=== PATIENT | male | born 1930 | race Caucasian/White ===

== ENCOUNTER 2022-01-03 12:22 | Inpatient (IN) | payer MEDICARE, OTHER ==
[2022-01-03] VITALS (14 sets, daily range): BP systolic 106–163; BP diastolic 48–94
[~2022-01-03] VITALS: Ht 165.1 cm; Wt 72.6 kg
--- NOTE | 2022-01-03 12:35 | NUR ---
COVID SWAB DONE AND SENT TO LAB
--- NOTE | 2022-01-03 12:38 | NUR ---
FELICITY Green FROM [facility] FOR ALOC AND SHORTNESS OF BREATH. ATTACHED TO MONITOR, PT SATTING AT 98% ON NONREBREATHER 15L. PT BASELINE IS NONVERBAL BUT OPENS HIS EYS. PT IS WARM TO TOUCH. AWAITING MD ORDERS.
[2022-01-03] MEDS ORDERED: PROPOFOL 100 ML ONE (12:39)
--- NOTE | 2022-01-03 12:44 | NUR ---
IV ETABLIHSED R HAND 22G, ADDITIONAL IV ESTABLISHED L FA 20G. LABS DRAWN AND SENT
[2022-01-03 12:47] LABS: BASOPHILS % (AUTO) 0.1 % (0.0-2.0); HEMATOCRIT 31 % (39-51); HEMOGLOBIN 10.2 g/dL (13.5-17.5); LYMPHOCYTES # (AUTO) 0.2 K/uL (0.8-4.8); LYMPHOCYTES % (AUTO) 1.4 % (20.0-44.0); MEAN CORPUSCULAR HGB CONC 33 g/dl (31.0-36.0); MEAN CORPUSCULAR VOLUME 89 fL (80-96); MONOCYTES # (AUTO) 0.4 K/uL (0.1-1.30); MONOCYTES % (AUTO) 2.5 % (2.0-12.0); NEUTROPHILS # (AUTO) 16.2 K/uL (1.8-8.9); PLATELET COUNT (AUTO) 227 K/uL (150-450); RED BLOOD CELL COUNT(AUTO) 3.44 MIL/uL (4.5-6.0); WHITE BLOOD COUNT (AUTO) 16.9 K/uL (4.3-11.0)
[2022-01-03] MEDS ORDERED: ETOMIDATE 2 MG/ML VIAL IV ONE ×2 (13:00→17:52)
[2022-01-03] MEDS ORDERED: PROPOFOL 100 ML IV ONE (13:00)
[2022-01-03] MEDS ORDERED: ROCURONIUM BROMIDE 100 MG/10 ML VIAL IV ONE (13:00)
[2022-01-03] MEDS ORDERED: IV NS 0.9% 1,000 ML BAG IV ONE (13:00)
[2022-01-03] MEDS ORDERED: VANCOMYCIN 1 GM in IV D5W 250 ML IV ONE (13:00)
[2022-01-03] MEDS ORDERED: CEFEPIME 1 GM in IV D5W 50 ML IV ONE (13:00)
[2022-01-03] MEDS ORDERED: AMIN30LI2 GT (13:01)
[2022-01-03] MEDS ORDERED: FAMO20TA8 GT (13:01)
[2022-01-03] MEDS ORDERED: DIGO125T GT (13:01)
[2022-01-03] MEDS ORDERED: ONDA4TAB11 GT (13:01)
[2022-01-03] MEDS ORDERED: IPRA3AMP23 IH (13:01)
[2022-01-03] MEDS ORDERED: ZINC220C6 GT (13:01)
[2022-01-03] MEDS ORDERED: INSU100V39 SQ (13:01)
[2022-01-03] MEDS ORDERED: ASCO-352 GT (13:01)
[2022-01-03] MEDS ORDERED: FURO-145 GT (13:01)
[2022-01-03] MEDS ORDERED: INSU100V7 SQ (13:01)
[2022-01-03] MEDS ORDERED: BISA10SU11 RC (13:01)
[2022-01-03] MEDS ORDERED: ACET-868 GT (13:01)
[2022-01-03] MEDS ORDERED: ACET1OOV6 HHN (13:01)
[2022-01-03] MEDS ORDERED: SODI1TAB66 GT (13:01)
[2022-01-03] MEDS ORDERED: MULT-447 GT (13:01)
[2022-01-03] MEDS ORDERED: APIX2.5T GT (13:01)
[2022-01-03] MEDS ORDERED: GUAI600T53 GT (13:01)
--- NOTE | 2022-01-03 13:01 | NUR ---
X RAY AT BEDSIDE
--- NOTE | 2022-01-03 13:13 | NUR ---
[address], 50CC OF URINE OUTPUT. URINE COLLECTED AND SENT.
[2022-01-03 13:44] LABS: CALCIUM, SERUM 8.7 mg/dL (8.5-10.1); CARBON DIOXIDE 27 mmol/L (21-32); CHLORIDE 85 mmol/L (98-107); CREATININE 1.5 mg/dL (0.6-1.3); GLUCOSE 273 mg/dL (74-106); POTASSIUM 4.9 mmol/L (3.5-5.1); SODIUM SERUM 122 mmol/L (136-145); UREA NITROGEN, BLOOD 42 mg/dL (7-18)
[2022-01-03 13:51] LABS: ALANINE AMINOTRANSFERASE 27 U/L (12-78); ALBUMIN 3.3 g/dL (3.4-5.0); ALKALINE PHOSPHATASE 108 U/L (46-116); ASPARTATE AMINOTRANSFERASE 36 U/L (15-37); BILIRUBIN,DIRECT 0.2 mg/dL (0.0-0.2); BILIRUBIN,TOTAL 0.6 mg/dL (0.2-1.0); TOTAL PROTEIN, SERUM 8.6 g/dL (6.4-8.2)
[2022-01-03 13:58] LABS: BILIRUBIN,URINE NEGATIVE (NEGATIVE); COLOR,URINE YELLOW (YELLOW); LEUKOCYTE ESTERASE ,URINE MODERATE (NEGATIVE); NITRITE, URINE NEGATIVE (NEGATIVE); PROTEIN,URINE 100 mg/dl (NEGATIVE); UGLUCOSE 500 MG/DL mg/dL (NEGATIVE); UROBILINOGEN,URINE 0.2 EU/dL (0.2)
[2022-01-03 14:00] LABS: BACTERIA,URINE Moderate /HPF (None Seen); SQUAMOUS EPITHELIAL CELL,UR Few /HPF (None Seen); WBC,URINE TOO NUMEROUS TO COUN /HPF (0-3)
[2022-01-03 14:01] LABS: URINE AMORPHOUS URATE Few /HPF (None Seen)
[2022-01-03 14:11] LABS: ABG PH 7.423 (7.350-7.450); ABG PO2 86.6 mmHg (75.0-100.0); COHb 0.3 % (0.5-1.5); MetHb 0.2 % (0.0-1.5); SITE, ABG Left Radial; VENT MODE, BG NRB 6LPM
[2022-01-03] MEDS ORDERED: NUT.237L30 GT (14:13)
[2022-01-03] MEDS ORDERED: Z GUARD REMEDY 4 OZ OINT TP PRN (14:30)
[2022-01-03] MEDS ORDERED: IPRATROPIUM NEB FS 0.5 MG/2.5 ML AMPUL.NEB NEB PRN (14:30)
[2022-01-03] MEDS ORDERED: HYDROCODONE/APAP 5/325MG TABLET GT PRN (14:30)
[2022-01-03] MEDS ORDERED: ACETAMINOPHEN 650 MG/SUPP.RECT RC PRN (14:30)
[2022-01-03] MEDS ORDERED: MAGNESIUM HYDROXIDE 30 ML UDC PO PRN (14:30)
[2022-01-03] MEDS ORDERED: DEXTROSE 50%-WATER 50 ML DISP.SYRIN IV PRN (14:30)
[2022-01-03] MEDS ORDERED: ONDANSETRON HCL/PF 4 MG/2 ML VIAL IVP PRN (14:30)
[2022-01-03] MEDS ORDERED: BISACODYL SUPP (10 MG) 10 MG/SUPP.RECT SUPP.RECT RC PRN (14:30)
[2022-01-03] MEDS ORDERED: HOME MED MISCELLANEOUS XX SCH (14:30)
[2022-01-03] MEDS ORDERED: GUAIFENESIN 300 MG/15 ML UDC GT PRN (14:30)
[2022-01-03] MEDS ORDERED: ACETAMINOPHEN 650 MG/20.3 ML UDC ONE (14:46)
[2022-01-03] MEDS ORDERED: ACETAMINOPHEN 650 MG/20.3 ML UDC GT ONE (15:00)
--- NOTE | 2022-01-03 15:03 | NUR ---
REPORT GIVEN TO SHERINE FOR MARTA
--- NOTE | 2022-01-03 15:55 | NUR ---
PATIENT ARRIVED FROM THE E.R DEPT VIA [facility] , REPORT GIVEN BY ALYSA; ADMITTED PT. PER ORDER/PROTOCOL. ON NON-REBREATHER MASK O2SAT 95%; GT IN-PLACE; TEMP=98.5F. KEPT PT. COMFORTABLE. NO SSx OF DISTRESS NOTED AT THIS TIME.
[2022-01-03] MEDS ORDERED: GLUCERNA 1.2 1,000 ML BOTTLE NG PRN (16:00)
[2022-01-03] MEDS ORDERED: GLUCERNA 1.2 1,000 ML BOTTLE GT PRN (16:00)
--- NOTE | 2022-01-03 16:02 | NUR ---
PT TRANSFERRED TO ICU WITH ALS PROTOCOLS IN PLACE, RECIVED BY LUCA BASURTO AND JOI FRAZIER.
[2022-01-03] MEDS: APIXABAN 2.5 MG TABLET GT SCH (17:39)
[2022-01-03] MEDS: BLOOD SUGAR DIAGNOSTIC 1 EACH STRIP IN SCH ×2 (17:50→23:49)
[2022-01-03] MEDS ORDERED: ROCURONIUM BROMIDE 50 MG/5 ML IV ONE (17:52)
[2022-01-03] MEDS: INSULIN REGULAR, HUMAN 100 UNIT/ML 3 ML VIAL SQ PRN ×2 (17:53→23:50)
--- NOTE | 2022-01-03 19:02 | NUR ---
NO SSx OF DISTRESS NOTED AT THIS TIME; REPOSITIONED Q2H/PRN; ENDORSED TO JESSIE FOR CONTINUITY OF CARE.
[2022-01-03] MEDS: CEFEPIME 1 GM in IV D5W 50 ML IV SCH (21:00)
[2022-01-03] MEDS: DIGOXIN 0.125 MG TABLET GT SCH (22:58)
--- NOTE | 2022-01-03 23:20 | NUR ---
ICU/TONGUE LINING STITCHER PT WAS DEEP SUCTION, PT SOUNDS EXTREMLY CONGESTED WITH A NON PRODUCTIVE COUGH. PT TOLERATED THIS WELL, PT REMAINS ON 15 LITERS NON REBREATHER MASK. SATURATION IS 99%
[2022-01-03] MEDS: ALBUTEROL FS 2.5 MG/3 ML VIAL.NEB NEB PRN (23:54)
[2022-01-04] VITALS (30 sets, daily range): BP systolic 78–135; BP diastolic 45–74
--- NOTE | 2022-01-04 00:49 | NUR ---
ICU/PROCESS ENGINEERING INTERN RT WAS ABLE TO GIVE THIS PT HIS PRN BREATHING TREATMENT. WILL MONITOR THIS PT FOR ANY FURTHER CHANGES TO HIS SATURATION.
[2022-01-04 05:22] LABS: BASOPHILS % (AUTO) 0.1 % (0.0-2.0); HEMATOCRIT 27 % (39-51); HEMOGLOBIN 8.7 g/dL (13.5-17.5); LYMPHOCYTES # (AUTO) 0.9 K/uL (0.8-4.8); LYMPHOCYTES % (AUTO) 6.6 % (20.0-44.0); MEAN CORPUSCULAR HGB CONC 33 g/dl (31.0-36.0); MEAN CORPUSCULAR VOLUME 91 fL (80-96); MONOCYTES # (AUTO) 0.8 K/uL (0.1-1.30); MONOCYTES % (AUTO) 5.9 % (2.0-12.0); NEUTROPHILS # (AUTO) 11.6 K/uL (1.8-8.9); NEUTROPHILS % (AUTO) 87.4 % (43.0-81.0); PLATELET COUNT (AUTO) 142 K/uL (150-450); RED BLOOD CELL COUNT(AUTO) 2.91 MIL/uL (4.5-6.0); WHITE BLOOD COUNT (AUTO) 13.2 K/uL (4.3-11.0)
[2022-01-04 05:34] LABS: CALCIUM, SERUM 8.4 mg/dL (8.5-10.1); CARBON DIOXIDE 29 mmol/L (21-32); CHLORIDE 94 mmol/L (98-107); CREATININE 1.5 mg/dL (0.6-1.3); GLUCOSE 164 mg/dL (74-106); MAGNESIUM 2.2 mg/dL (1.8-2.4); PHOSPHORUS 2.6 mg/dL (2.5-4.9); POTASSIUM 3.8 mmol/L (3.5-5.1); SODIUM SERUM 129 mmol/L (136-145); UREA NITROGEN, BLOOD 39 mg/dL (7-18)
[2022-01-04] MEDS: BLOOD SUGAR DIAGNOSTIC 1 EACH STRIP IN SCH ×3 (05:44→17:02)
[2022-01-04 05:46] LABS: THYROID STIMULATING HORMONE 0.992 uIU/mL (0.358-3.74)
[2022-01-04] MEDS: INSULIN REGULAR, HUMAN 100 UNIT/ML 3 ML VIAL SQ PRN ×3 (05:47→17:09)
--- NOTE | 2022-01-04 06:33 | NUR ---
ICU/OVAL OR CIRCULAR GLASS CUTTER PT HAS POSITIVE BLOOD CULTURE GRAM POSITIVE COCI CLUSTER. WILL PASS THIS ON TO DAY SHIFT NURSE. PT IS CURRENTLY ON IVPB.
--- NOTE | 2022-01-04 07:30 | NUR ---
RN OPENING NOTE PT OBSERVED IN BED WITH HOB >30. PT IS ON NON REBREATHER MASK 15L TOLERATING WELL O2 SAT 97%. PT IS NON VERBAL AND DOES NOT OPEN EYES AND RESPONDS TO TOUCH AND LIGHT PAIN. PT ON MONITOR WITH AFIB. FC IS IN PLACE DRAINING URINE TO GRAVITY GTUBE IS IN PLACE WITH POSITIVE PLACEMENT INFUSING WITH GLUCERNA @60ML/HR. IV ACCESS L THUMB 22G AND L FA 20G. BED IS LOCKED IN LOWEST POSITION X2 BEDRAILS UP AND ALL HOSPITAL SAFETY MEASURES ARE IN PLACE. WILL CONTINUE TO MONITOR THIS SHIFT.
--- NOTE | 2022-01-04 07:33 | NUR ---
WOUND CARE CONSULT: PT NOTED TO HAVE RAPID RESPIRATIONS AT THIS TIME. NOT TURNED FOR FULL SKIN ASSESSMENT AT THIS TIME. LEFT HEEL WOUND NOTED AND RT HEEL SCARRING, PRESENT ON ADMISSION. DPM CONSULT TO BE CALLED TO DR STEPHENS THIS AM. RECOMMENDATIONS MADE FOR SKIN PROTECTION. DISCUSSED WITH NURSING STAFF. MD IN AGREEMENT WITH PLAN OF CARE.
[2022-01-04] MEDS ORDERED: FUROSEMIDE 40 MG/4 ML VIAL IV SCH (09:00)
[2022-01-04] MEDS ORDERED: MULTIVITAMIN LIQ 5 ML UDC GT SCH (09:00)
[2022-01-04] MEDS ORDERED: POTASSIUM CHLORIDE 20 MEQ POWDER PACKET NG SCH (09:00)
[2022-01-04] MEDS ORDERED: SODIUM CHLORIDE 1000 MG TABLET GT SCH (09:00)
[2022-01-04] MEDS: ACETYLCYSTEINE 10% SOLN 400 MG/4 ML VIAL NEB SCH ×3 (09:00→23:39)
[2022-01-04] MEDS: CEFEPIME 1 GM in IV D5W 50 ML IV SCH ×2 (09:02→21:12)
[2022-01-04] MEDS: FAMOTIDINE (20 MG) 20 MG TABLET GT SCH (09:02)
[2022-01-04] MEDS: ASCORBIC ACID 500 MG TABLET GT SCH (09:03)
[2022-01-04] MEDS: ZINC SULFATE 220 MG CAPSULE GT SCH (09:03)
[2022-01-04] MEDS: FUROSEMIDE 40 MG/4 ML VIAL IV SCH ×3 (09:08→17:00)
[2022-01-04] MEDS: APIXABAN 2.5 MG TABLET GT SCH ×2 (09:12→17:02)
[2022-01-04] MEDS: MULTIVITAMINS,THERAGRAN 1 UDTAB TABLET GT SCH (09:16)
[2022-01-04 09:44] LABS: ABG BASE EXCESS 1.2 mmol/L; ABG OXYGEN SATURATION 98.1 % (92.0-98.5); ABG PCO2 38.7 mmHg (35.0-45.0); ABG PH 7.436 (7.350-7.450); ABG PO2 111.3 mmHg (75.0-100.0); COHb 0.3 % (0.5-1.5); MetHb 0.1 % (0.0-1.5); O2Hb 97.7 % (94.0-97.0); SITE, ABG Right Radial; VENT MODE, BG NON REBREATHER
--- NOTE | 2022-01-04 09:50 | NUR ---
placed into 6 lp oxygen flow via nasal cannula due to 100% spo2 and 111 pao2 as order Addendum: 01/04/22 at 0951 by VICKIE RAMIREZ RT Amended: Links added.
[2022-01-04] MEDS: PROSOURCE / PROSTAT (PYXIS) 30 ML UDC GT SCH (10:45)
[2022-01-04] MEDS: IPRATROPIUM NEB FS 0.5 MG/2.5 ML AMPUL.NEB NEB SCH ×4 (11:25→23:39)
[2022-01-04] MEDS: ALBUTEROL HALF STRENGTH 1.25 MG/3 ML VIAL.NEB NEB SCH ×4 (11:25→23:39)
[2022-01-04] MEDS: VANCOMYCIN 0.75 GM in IV D5W 250 ML IV SCH (13:37)
[2022-01-04] MEDS: GLUCERNA 1.2 1,000 ML BOTTLE GT PRN (13:38)
[2022-01-04] MEDS: ACETAMINOPHEN 325 MG TABLET MC PRN (17:00)
[2022-01-04] MEDS ORDERED: IV NS 0.9% 250 ML IV PRN ×2 (17:00→17:30)
--- NOTE | 2022-01-04 17:29 | NUR ---
RN NOTE: LASIX PT BP 92/47 (65). PER MD, HOLD LAST DOSE OF IV 40MG LASIX. WILL WASTE DOSE.
--- NOTE | 2022-01-04 18:56 | NUR ---
RN CLOSING NOTE PT IS IN BED WITH HOB >30. PT IS ON NC @2L TOLERATING WELL O2 SAT 99%. PT IS NON VERBAL AND DOES NOT OPEN EYES AND RESPONDS TO TOUCH AND LIGHT PAIN. PT ON MONITOR WITH AFIB. FC IS IN PLACE DRAINING URINE TO GRAVITY -1100ML GTUBE IS IN PLACE WITH POSITIVE PLACEMENT INFUSING WITH GLUCERNA @60ML/HR. IV ACCESS L THUMB 22G AND L FA 20G. BED IS LOCKED IN LOWEST POSITION X2 BEDRAILS UP AND ALL HOSPITAL SAFETY MEASURES ARE IN PLACE. WILL ENDORSE TO COTTON FEEDER NURSE FOR MARTA.
[2022-01-04] MEDS: DIGOXIN 0.125 MG TABLET GT SCH (21:12)
[2022-01-05] VITALS (20 sets, daily range): BP systolic 97–143; BP diastolic 46–88
[2022-01-05] MEDS: BLOOD SUGAR DIAGNOSTIC 1 EACH STRIP IN SCH ×4 (00:01→18:36)
[2022-01-05] MEDS: INSULIN REGULAR, HUMAN 100 UNIT/ML 3 ML VIAL SQ PRN ×4 (00:09→17:29)
[2022-01-05 03:27] LABS: BASOPHILS % (AUTO) 0.3 % (0.0-2.0); EOSINOPHILS % (AUTO) 0.1 % (0.0-6.0); HEMATOCRIT 24 % (39-51); HEMOGLOBIN 7.9 g/dL (13.5-17.5); LYMPHOCYTES # (AUTO) 0.7 K/uL (0.8-4.8); LYMPHOCYTES % (AUTO) 8.1 % (20.0-44.0); MEAN CORPUSCULAR HGB CONC 34 g/dl (31.0-36.0); MEAN CORPUSCULAR VOLUME 91 fL (80-96); MONOCYTES # (AUTO) 0.6 K/uL (0.1-1.30); MONOCYTES % (AUTO) 6.8 % (2.0-12.0); NEUTROPHILS # (AUTO) 7.6 K/uL (1.8-8.9); NEUTROPHILS % (AUTO) 84.7 % (43.0-81.0); PLATELET COUNT (AUTO) 136 K/uL (150-450); RED BLOOD CELL COUNT(AUTO) 2.61 MIL/uL (4.5-6.0)
[2022-01-05 03:37] LABS: CALCIUM, SERUM 8.4 mg/dL (8.5-10.1); CARBON DIOXIDE 29 mmol/L (21-32); CHLORIDE 96 mmol/L (98-107); CREATININE 1.5 mg/dL (0.6-1.3); GLUCOSE 189 mg/dL (74-106); POTASSIUM 4.1 mmol/L (3.5-5.1); SODIUM SERUM 129 mmol/L (136-145); UREA NITROGEN, BLOOD 50 mg/dL (7-18)
[2022-01-05] MEDS: IPRATROPIUM NEB FS 0.5 MG/2.5 ML AMPUL.NEB NEB SCH ×6 (04:13→23:49)
[2022-01-05] MEDS: ALBUTEROL HALF STRENGTH 1.25 MG/3 ML VIAL.NEB NEB SCH ×6 (04:13→23:49)
[2022-01-05] MEDS: ACETYLCYSTEINE 10% SOLN 400 MG/4 ML VIAL NEB SCH ×3 (07:15→23:49)
[2022-01-05] MEDS: CEFEPIME 1 GM in IV D5W 50 ML IV SCH ×2 (08:09→21:19)
[2022-01-05] MEDS: ZINC SULFATE 220 MG CAPSULE GT SCH (08:10)
[2022-01-05] MEDS: ASCORBIC ACID 500 MG TABLET GT SCH (08:10)
[2022-01-05] MEDS: MULTIVITAMINS,THERAGRAN 1 UDTAB TABLET GT SCH (08:10)
[2022-01-05] MEDS: FAMOTIDINE (20 MG) 20 MG TABLET GT SCH (08:10)
[2022-01-05] MEDS: APIXABAN 2.5 MG TABLET GT SCH ×3 (08:12→16:51)
[2022-01-05] MEDS: PROSOURCE / PROSTAT (PYXIS) 30 ML UDC GT SCH (08:13)
--- NOTE | 2022-01-05 09:18 | NUR ---
Yamileth to Administer Eliquis per Dr Coyle
[2022-01-05 10:15] LABS: FERRITIN 428 ng/mL (8-388)
[2022-01-05 11:25] LABS: IRON, SERUM 22 ug/dl (50-175); TOTAL IRON BINDING CAPACITY 222 ug/dl (250-450)
[2022-01-05] MEDS: VANCOMYCIN 0.75 GM in IV D5W 250 ML IV SCH (13:01)
[2022-01-05] MEDS: SOD FERRIC GLUC 125 MG in IV NS 0.9% 100 ML IV SCH (13:56)
[2022-01-05] MEDS: POVIDONE-IODINE OINT 28.4 GM TUBE TP SCH (16:52)
[2022-01-05] MEDS: CLOTRIMAZOLE 1% 15 GM TUBE TP SCH (16:53)
--- NOTE | 2022-01-05 18:30 | NUR ---
RN NOTE RESUMES MARTA PATIENT PLACED IN ROM 115-1
--- NOTE | 2022-01-05 18:48 | NUR ---
RN CLOSING NOTE PT IS IN BED WITH HOB >30. PT IS ON NC @2L TOLERATING WELL O2 SAT 100%. PT IS NON VERBAL AND DOES NOT OPEN EYES AND RESPONDS TO TOUCH AND LIGHT PAIN. PT ON MONITOR WITH AFIB. FC IS IN PLACE DRAINING URINE TO GRAVITYGTUBE IS IN PLACE WITH POSITIVE PLACEMENT INFUSING WITH GLUCERNA @60ML/HR. IV ACCESS L THUMB 22G AND L FA 20G. BED IS LOCKED IN LOWEST POSITION X2 BEDRAILS UP AND ALL HOSPITAL SAFETY MEASURES ARE IN PLACE. WILL ENDORSE TO JET DYEING MACHINE TENDER NURSE FOR MARTA.
--- NOTE | 2022-01-05 19:20 | NUR ---
RN OPEN NOTE: NON VERBAL. RESPONSIVE TO TACTILE STIMULI. HOB ELEVATED 30 DEGREES. ON 02 2 LPM NC. IV ON RIGHT THUMB G22 PATENT FLUSHED WITH NS. NO S/S OF COMPLICATIONS. IN ON LEFT FOREARM G 20 PATENT FLUSHED WITH NS WITH NO S/S OF COMPLICATIONS. GT IN PLACE PATENT WITH GLUCERNA AT 60 ML/HR. NO RESIDUAL. MOSS CATHETER WITH YELLOW URINE. TELE LEADS IN PLACE WITH A READING OF A.FIB CONTROLLED 82. REPOSITIONED WITH PILLOWS,BED IN LOW POSITION, LOCKED, BED ALARM ON. BILATERAL HALF SIDE RAILS UP X2. CALL LIGHT IN REACH.
[2022-01-05] MEDS: DIGOXIN 0.125 MG TABLET GT SCH (21:07)
[2022-01-06] VITALS: BP 143/80
[2022-01-06] MEDS: BLOOD SUGAR DIAGNOSTIC 1 EACH STRIP IN SCH ×5 (00:33→23:50)
[2022-01-06] MEDS: INSULIN REGULAR, HUMAN 100 UNIT/ML 3 ML VIAL SQ PRN ×5 (00:38→23:51)
[2022-01-06] MEDS: IV D5/ 0.9% NACL 1,000 ML IV PRN ×2 (01:18→23:01)
[2022-01-06] MEDS: IPRATROPIUM NEB FS 0.5 MG/2.5 ML AMPUL.NEB NEB SCH ×6 (03:59→23:27)
[2022-01-06] MEDS: ALBUTEROL HALF STRENGTH 1.25 MG/3 ML VIAL.NEB NEB SCH ×6 (03:59→23:27)
[2022-01-06 04:00] VITALS: BP 143/73
[2022-01-06] MEDS: GLUCERNA 1.2 1,000 ML BOTTLE GT PRN ×2 (06:16→22:52)
--- NOTE | 2022-01-06 06:55 | NUR ---
RN CLOSING NOTE: NON VERBAL. RESPONSIVE TO TACTILE STIMULI. HOB ELEVATED 30 DEGREES. ON 02 2 LPM NC. IV ON RIGHT THUMB G22 PATENT FLUSHED WITH NS. NO S/S OF COMPLICATIONS. IN ON LEFT FOREARM G 20 PATENT FLUSHED WITH NS WITH NO S/S OF COMPLICATIONS. GT IN PLACE PATENT WITH GLUCERNA AT 60 ML/HR. ASPIRATION PRECAUTIONS MAINTAINED. NO RESIDUAL. MOSS CATHETER WITH YELLOW URINE. TELE LEADS IN PLACE WITH A READING OF A.FIB CONTROLLED 84. REPOSITIONED WITH PILLOWS, KEPT CLEAN AND DRY,BED IN LOW POSITION, LOCKED, BED ALARM ON. BILATERAL HALF SIDE RAILS UP X2. CALL LIGHT IN REACH.
--- NOTE | 2022-01-06 07:20 | NUR ---
RN OPENING NOTE RECEIVED PT IN BED WITH HOB >30. PT IS ON NASAL CANNULA @2L TOLERATING WELL O2 SAT 97%. PT IS NON VERBAL, DOES NOT OPEN EYES AND RESPONDS TO TOUCH AND LIGHT PAIN. PT ON TELE MONITOR WITH CONTROLLED AFIB. MOSS CATHETER IN PLACE DRAINING YELLOW COLOR URINE TO GRAVITY. GTUBE IN PLACE INFUSING WITH GLUCERNA @60ML/HR. NO RESIDUAL VOLUME NOTED. IV ACCESS ON RIGHT THUMB AND LEFT FOREARM 20G. INTACT AND PATENT. ALL SAFETY PRECAUTIONS IN PLACE, BED LOCKED IN LOWEST POSITION, SIDE RAILS UPX2. BED AT LOWEST POSITION.
[2022-01-06 07:39] LABS: BASOPHILS % (AUTO) 0.2 % (0.0-2.0); EOSINOPHILS % (AUTO) 1.4 % (0.0-6.0); HEMATOCRIT 27 % (39-51); HEMOGLOBIN 9.2 g/dL (13.5-17.5); LYMPHOCYTES # (AUTO) 0.8 K/uL (0.8-4.8); LYMPHOCYTES % (AUTO) 7.4 % (20.0-44.0); MEAN CORPUSCULAR HGB CONC 33 g/dl (31.0-36.0); MEAN CORPUSCULAR VOLUME 92 fL (80-96); MONOCYTES # (AUTO) 0.7 K/uL (0.1-1.30); MONOCYTES % (AUTO) 6.7 % (2.0-12.0); NEUTROPHILS # (AUTO) 8.9 K/uL (1.8-8.9); NEUTROPHILS % (AUTO) 84.3 % (43.0-81.0); PLATELET COUNT (AUTO) 155 K/uL (150-450); RED BLOOD CELL COUNT(AUTO) 2.99 MIL/uL (4.5-6.0); WHITE BLOOD COUNT (AUTO) 10.6 K/uL (4.3-11.0)
[2022-01-06 08:00] VITALS: BP 133/74
[2022-01-06 08:03] LABS: CALCIUM, SERUM 8.6 mg/dL (8.5-10.1); CARBON DIOXIDE 25 mmol/L (21-32); CHLORIDE 97 mmol/L (98-107); CREATININE 1.3 mg/dL (0.6-1.3); GLUCOSE 188 mg/dL (74-106); POTASSIUM 4.5 mmol/L (3.5-5.1); SODIUM SERUM 133 mmol/L (136-145); UREA NITROGEN, BLOOD 46 mg/dL (7-18)
[2022-01-06] MEDS: ACETYLCYSTEINE 10% SOLN 400 MG/4 ML VIAL NEB SCH ×3 (08:03→23:27)
[2022-01-06] MEDS: APIXABAN 2.5 MG TABLET GT SCH ×2 (08:14→16:37)
[2022-01-06] MEDS: MULTIVITAMINS,THERAGRAN 1 UDTAB TABLET GT SCH (08:17)
[2022-01-06] MEDS: FAMOTIDINE (20 MG) 20 MG TABLET GT SCH (08:17)
[2022-01-06] MEDS: ASCORBIC ACID 500 MG TABLET GT SCH (08:17)
[2022-01-06] MEDS: ZINC SULFATE 220 MG CAPSULE GT SCH (08:17)
[2022-01-06] MEDS: CEFEPIME 1 GM in IV D5W 50 ML IV SCH ×2 (08:30→20:29)
[2022-01-06] MEDS: CLOTRIMAZOLE 1% 15 GM TUBE TP SCH ×2 (08:40→17:03)
[2022-01-06] MEDS: POVIDONE-IODINE OINT 28.4 GM TUBE TP SCH ×2 (09:00→16:33)
[2022-01-06 12:00] VITALS: BP 148/79
[2022-01-06] MEDS: VANCOMYCIN 0.75 GM in IV D5W 250 ML IV SCH (14:36)
[2022-01-06 16:00] VITALS: BP 151/75
--- NOTE | 2022-01-06 16:30 | NUR ---
PROVIDED UPDATES TO PT DAUGHTER
--- NOTE | 2022-01-06 16:32 | NUR ---
called pharmacy out of stock on betadine ointment
[2022-01-06] MEDS: SOD FERRIC GLUC 125 MG in IV NS 0.9% 100 ML IV SCH (16:55)
--- NOTE | 2022-01-06 17:00 | NUR ---
RN NOTE PT R THUMB IV INFILTRATED, SWOLLEN. REMOVED AND ELEVATED ARM
[2022-01-06] MEDS: PROSOURCE / PROSTAT (PYXIS) 30 ML UDC GT SCH (18:32)
--- NOTE | 2022-01-06 19:30 | NUR ---
COURTROOM REPORTER OPENING NOTE RECEIVED PT IN BED, SLEEPING. CURRENTLY ON O2 VIA NC @ 2L, TOLERATING WELL. NO S/SX OF ACUTE RESPI DISTRESS NOTED AT THIS TIME. BREATHING IS EVEN AND UNLABORED. O2 SAT @ 98%, AFIB CONTROLLED ON TELE MONITOR WITH HR IN THE 80s. IV ACCESS NOTED ON LFA, #20g RUNNING NS TKO. GTF NOTED RUNNING GLUCERNA 1.2 @ 60 CC/HR. NO RESIDUAL NOTED. ALL SAFETY MEASURES IN PLACE: BED LOCKED IN LOWEST POSITION. BED ALARM ON. CALL LIGHT WITHIN REACH. SR UP X 2. WILL CONTINUE TO MONITOR.
[2022-01-06 20:00] VITALS: BP 138/86
--- NOTE | 2022-01-06 20:15 | NUR ---
RN CLOSING NOTE PT IN BED WITH HOB >30. PT IS ON NC @2L TOLERATING WELL O2 SAT 98%. PT IS NON VERBAL AND DOES NOT OPEN EYES AND RESPONDS TO TOUCH AND LIGHT PAIN. PT ON MONITOR WITH CONTROLLED AFIB. KEPT CLEAN AND DRY. FC IN PLACE DRAINING YELLOW COLOR URINE TO GRAVITY.GTUBE IN PLACE GLUCERNA @60ML/HR. NO RESIDUAL VOLUME NOTED. IV ACCESS L FA 20G.INTACT AND PATENT. ALL SAFETY MEASURES IN PLACE, BED IS LOCKED IN LOWEST POSITION, SIDE RAILS UP X2,
[2022-01-06] MEDS: DIGOXIN 0.125 MG TABLET GT SCH (21:20)
[2022-01-07] VITALS: BP 142/78
[2022-01-07] MEDS: IPRATROPIUM NEB FS 0.5 MG/2.5 ML AMPUL.NEB NEB SCH ×5 (03:30→19:48)
[2022-01-07] MEDS: ALBUTEROL HALF STRENGTH 1.25 MG/3 ML VIAL.NEB NEB SCH ×5 (03:31→19:48)
[2022-01-07 04:00] VITALS: BP 133/71
--- NOTE | 2022-01-07 04:50 | NUR ---
RN NOTE PT IS STABLE WITH NO S/SX OF ACUTE DISTRESS. PT IS NON VERBAL AND DID NOT OPEN HIS EYES THE WHOLE NIGHT. PT RESPONDS TO TOUCH AND LIGHT PAIN ONLY. ALL VS STABLE EXCEPT WITH RR HIGHER THAN NORMAL - 30. WILL CONTINUE TO MONITOR.
[2022-01-07] MEDS: ACETAMINOPHEN 325 MG TABLET MC PRN (05:04)
--- NOTE | 2022-01-07 05:05 | NUR ---
RN NOTE PT NOTED TO HAVE LOW GRADE FEVER AT 99.6 PT IN NO RESPI DISTRESS UPON ASSESSMENT. RR SLIGHTLY ELEVATED AT 26/MIN. ADMINISTERED TYLENOL PRN ORDERED. WILL CONTINUE TO MONITOR.
[2022-01-07] MEDS: BLOOD SUGAR DIAGNOSTIC 1 EACH STRIP IN SCH ×3 (05:24→17:16)
[2022-01-07] MEDS: INSULIN REGULAR, HUMAN 100 UNIT/ML 3 ML VIAL SQ PRN ×2 (05:26→17:14)
[2022-01-07 07:43] LABS: BASOPHILS % (AUTO) 0.2 % (0.0-2.0); EOSINOPHILS % (AUTO) 0.5 % (0.0-6.0); HEMATOCRIT 24 % (39-51); HEMOGLOBIN 8.1 g/dL (13.5-17.5); LYMPHOCYTES # (AUTO) 0.8 K/uL (0.8-4.8); LYMPHOCYTES % (AUTO) 8.4 % (20.0-44.0); MEAN CORPUSCULAR HGB CONC 33 g/dl (31.0-36.0); MEAN CORPUSCULAR VOLUME 90 fL (80-96); MONOCYTES # (AUTO) 0.7 K/uL (0.1-1.30); MONOCYTES % (AUTO) 7.3 % (2.0-12.0); NEUTROPHILS # (AUTO) 7.5 K/uL (1.8-8.9); NEUTROPHILS % (AUTO) 83.6 % (43.0-81.0); PLATELET COUNT (AUTO) 153 K/uL (150-450); RED BLOOD CELL COUNT(AUTO) 2.71 MIL/uL (4.5-6.0)
[2022-01-07 08:00] VITALS: BP 148/65
[2022-01-07 08:14] LABS: CALCIUM, SERUM 8.1 mg/dL (8.5-10.1); CREATININE 1.3 mg/dL (0.6-1.3); POTASSIUM 4.2 mmol/L (3.5-5.1)
[2022-01-07] MEDS: ACETYLCYSTEINE 10% SOLN 400 MG/4 ML VIAL NEB SCH ×2 (08:22→14:57)
[2022-01-07] MEDS: MULTIVITAMINS,THERAGRAN 1 UDTAB TABLET GT SCH (10:00)
[2022-01-07] MEDS: ZINC SULFATE 220 MG CAPSULE GT SCH (10:00)
[2022-01-07] MEDS: CEFEPIME 1 GM in IV D5W 50 ML IV SCH ×2 (10:00→20:09)
[2022-01-07] MEDS: ASCORBIC ACID 500 MG TABLET GT SCH (10:00)
[2022-01-07] MEDS: POVIDONE-IODINE OINT 28.4 GM TUBE TP SCH ×2 (10:01→17:15)
[2022-01-07] MEDS: FAMOTIDINE (20 MG) 20 MG TABLET GT SCH (10:01)
[2022-01-07] MEDS: CLOTRIMAZOLE 1% 15 GM TUBE TP SCH ×2 (10:01→17:16)
[2022-01-07] MEDS: PROSOURCE / PROSTAT (PYXIS) 30 ML UDC GT SCH (10:01)
[2022-01-07] MEDS: APIXABAN 2.5 MG TABLET GT SCH ×2 (10:03→17:14)
[2022-01-07 12:00] VITALS: BP 144/62
[2022-01-07 13:22] LABS: BAND % (MANUAL) 3 % (0.0-5.0); LYMPHOCYTES % (MANUAL) 5 % (16-48); METAMYELOCYTES % 2 % (0-0); MONOCYTES % (MANUAL) 5 % (0-11.0); MYELOCYTES % 2 % (0-0); NEUTROPHILS % (MANUAL) 83 (42-76)
[2022-01-07] MEDS: ALBUTEROL FS 2.5 MG/3 ML VIAL.NEB NEB PRN (14:57)
[2022-01-07] MEDS: VANCOMYCIN 0.75 GM in IV D5W 250 ML IV SCH (15:16)
[2022-01-07 16:00] VITALS: BP 142/65
[2022-01-07] MEDS: SOD FERRIC GLUC 125 MG in IV NS 0.9% 100 ML IV SCH (17:00)
--- NOTE | 2022-01-07 19:04 | NUR ---
RN NOTE PT RESTING IN BED WITH HOB >30. PT IS ON NC @2L TOLERATING WELL. PT ON MONITOR WITH CONTROLLED AFIB. KEPT CLEAN AND DRY. FC IN PLACE DRAINING WELL. GTUBE IN PLACE GLUCERNA @60ML/HR. NO RESIDUAL VOLUME NOTED. IV ACCESS L FA 20G WITH IVF D5NS @60CC/HR. ALL SAFETY MEASURES IN PLACE. DUE MEDS GIVEN. AM/PM CARE RENDERED.
[2022-01-07] MEDS: GLUCERNA 1.2 1,000 ML BOTTLE GT PRN (19:37)
[2022-01-07 20:00] VITALS: BP 150/68
--- NOTE | 2022-01-07 20:00 | NUR ---
RN OPENING NOTE RECEIVED PT IN BED WITH HOB >30. PT IS ON NASAL CANNULA @2L TOLERATING WELL O2 SAT 100%. PT IS NON VERBAL, PT ON TELE MONITOR WITH CONTROLLED AFIB. MOSS CATHETER IN PLACE DRAINING YELLOW COLOR URINE TO GRAVITY. GTUBE IN PLACE INFUSING WITH GLUCERNA @60ML/HR. NO RESIDUAL VOLUME NOTED. IV ACCESS ON RIGHT THUMB AND LEFT FOREARM 20G. INTACT AND PATENT ON IVF D5NS AT 60CC/HR INFUSING WELL . ALL SAFETY PRECAUTIONS IN PLACE, BED LOCKED IN LOWEST POSITION, SIDE RAILS UPX2. BED AT LOWEST POSITION. WILL CONTINUE TO MONITOR PTS. Addendum: 01/08/22 at 0514 by GOYO NAJERA RN iv access on the right thumb already removed only left forearm G #20 intact and patent.iv d5ns also discontinued.
[2022-01-07] MEDS: DIGOXIN 0.125 MG TABLET GT SCH (21:17)
[2022-01-08] VITALS: BP 145/84
[2022-01-08] MEDS: IPRATROPIUM NEB FS 0.5 MG/2.5 ML AMPUL.NEB NEB SCH ×4 (00:02→11:30)
[2022-01-08] MEDS: ALBUTEROL HALF STRENGTH 1.25 MG/3 ML VIAL.NEB NEB SCH ×4 (00:02→11:30)
[2022-01-08] MEDS: ACETYLCYSTEINE 10% SOLN 400 MG/4 ML VIAL NEB SCH ×2 (00:02→08:04)
[2022-01-08] MEDS: INSULIN REGULAR, HUMAN 100 UNIT/ML 3 ML VIAL SQ PRN ×2 (00:34→05:28)
[2022-01-08] MEDS: BLOOD SUGAR DIAGNOSTIC 1 EACH STRIP IN SCH ×3 (00:35→12:00)
--- NOTE | 2022-01-08 00:36 | NUR ---
telephone recorder notes Blood sugar for 10pm is 169mg/dl 3 units of regular insulin given per sliding scale
--- NOTE | 2022-01-08 03:59 | NUR ---
RT Pt recvd on 2 lpm NC, Bilateral Rhonchi BS, Neb tx given and pt wyatt well. No SOB or respiratory distress noted at this time.
[2022-01-08 04:00] VITALS: BP 141/71
--- NOTE | 2022-01-08 05:29 | NUR ---
todd carvajal notes Blood sugar for 10pm is 181mg/dl 3 units of regular insulin given per sliding scale Addendum: 01/08/22 at 0531 by GOYO NAJERA RN this blood sugar is for 6am not 10pm
--- NOTE | 2022-01-08 06:37 | NUR ---
RN CLOSING NOTE PT REMAIN BED WITH HOB >30. PT IS ON NC @2L TOLERATING WELL O2 SAT 98%. PT IS NON VERBAL EYES CLOSE, PT ON MONITOR WITH CONTROLLED AFIB. KEPT CLEAN AND DRY. FC IN PLACE DRAINING YELLOW COLOR URINE TO GRAVITY.GTUBE IN PLACE GLUCERNA @60ML/HR. GT FREE FLUSHING OF 250CC Q6HRS NO RESIDUAL VOLUME NOTED. IV ACCESS L FA 20G.INTACT AND PATENT. ALL SAFETY MEASURES IN PLACE, BED IS LOCKED IN LOWEST POSITION, SIDE RAILS UP X2,WILL ENDORSE TO RN DAY SHIFT FOR CONTINUITY OF CARE.
[2022-01-08 07:44] LABS: BASOPHILS % (AUTO) 0.3 % (0.0-2.0); EOSINOPHILS % (AUTO) 0.6 % (0.0-6.0); HEMATOCRIT 26 % (39-51); HEMOGLOBIN 8.5 g/dL (13.5-17.5); LYMPHOCYTES % (AUTO) 10.4 % (20.0-44.0); MEAN CORPUSCULAR HGB CONC 33 g/dl (31.0-36.0); MEAN CORPUSCULAR VOLUME 91 fL (80-96); MONOCYTES # (AUTO) 0.8 K/uL (0.1-1.30); MONOCYTES % (AUTO) 7.7 % (2.0-12.0); PLATELET COUNT (AUTO) 155 K/uL (150-450); RED BLOOD CELL COUNT(AUTO) 2.84 MIL/uL (4.5-6.0); WHITE BLOOD COUNT (AUTO) 9.8 K/uL (4.3-11.0)
[2022-01-08 08:00] VITALS: BP 141/71
[2022-01-08] MEDS: CEFEPIME 1 GM in IV D5W 50 ML IV SCH (08:05)
[2022-01-08] MEDS: MULTIVITAMINS,THERAGRAN 1 UDTAB TABLET GT SCH (08:06)
[2022-01-08] MEDS: FAMOTIDINE (20 MG) 20 MG TABLET GT SCH (08:06)
[2022-01-08] MEDS: ZINC SULFATE 220 MG CAPSULE GT SCH (08:06)
[2022-01-08] MEDS: ASCORBIC ACID 500 MG TABLET GT SCH (08:06)
[2022-01-08] MEDS: APIXABAN 2.5 MG TABLET GT SCH (08:07)
[2022-01-08 08:40] LABS: CALCIUM, SERUM 8.6 mg/dL (8.5-10.1); CREATININE 1.2 mg/dL (0.6-1.3); MAGNESIUM 2.4 mg/dL (1.8-2.4); PHOSPHORUS 3.6 mg/dL (2.5-4.9); POTASSIUM 4.5 mmol/L (3.5-5.1)
--- NOTE | 2022-01-08 10:07 | NUR ---
RN NOTE PMD NOTIFIED OF FINGER STICK INCIDENT OF EMPLOYEE. WITH ORDERS FOR LAB HIV ANTIGEN AND HEP ANTIBODIES.
[2022-01-08 10:09] LABS: ABG BASE EXCESS 2.9 mmol/L; ABG PCO2 40.4 mmHg (35.0-45.0); ABG PH 7.445 (7.350-7.450); ABG PO2 92.5 mmHg (75.0-100.0); AaDO2 59.5 mmHg; COHb 0.3 % (0.5-1.5); MetHb 0.3 % (0.0-1.5); O2Hb 96.4 % (94.0-97.0); SITE, ABG Left Radial; VENT MODE, BG Nasal Cannula
--- NOTE | 2022-01-08 10:30 | NUR ---
telehealth director note spoke with son trino black to [facility] blood for hepatitis and hiv test per hospital protocol due to employe poke self his finger
[2022-01-08] MEDS: POVIDONE-IODINE OINT 28.4 GM TUBE TP SCH (10:34)
[2022-01-08] MEDS: CLOTRIMAZOLE 1% 15 GM TUBE TP SCH (10:35)
[2022-01-08] MEDS ORDERED: FUROSEMIDE 40 MG/4 ML VIAL IV SCH (11:00)
[2022-01-08 11:20] LABS: BAND % (MANUAL) 4 % (0.0-5.0); LYMPHOCYTES % (MANUAL) 10 % (16-48); MONOCYTES % (MANUAL) 3 % (0-11.0); NEUTROPHILS % (MANUAL) 82 (42-76)
[2022-01-08 11:21] LABS: METAMYELOCYTES % 1 % (0-0)
[2022-01-08] MEDS: PROSOURCE / PROSTAT (PYXIS) 30 ML UDC GT SCH (11:43)
--- NOTE | 2022-01-08 11:55 | NUR ---
RN NOTES CALLED [facility] SPOKE TO KELSEA SEGOVIA, GAVE REPORT OF THE DISCHARGE ORDERS, CONFIRMED UNDERSTANDING. WILL CONTINUE PLAN OF CARE.
[2022-01-08 12:00] VITALS: BP 149/76
--- NOTE | 2022-01-08 13:13 | NUR ---
RN NOTE PT D/C TO [facility]. P/U BY 2 AMBULANCE PERSONNEL. IV ACCESS IN PLACE AND PATENT. PT TO CONT IV ABX CEFEPIME FOR 2 MORE WEEKS. V/S STABLE. TELE MONITOR REMOVED.
== END 2022-01-08 13:22 | DRG 871 ==
LOC: ER 12:24 → ICU 14:10 → TELE1 01-05 18:25
PROVIDERS: ADMIT Nurse Practitioner Acute Care; ATTEND Internal Medicine
DX: A41.9 Sepsis, unspecified organism (principal); G92.8 Other toxic encephalopathy; J96.01 Acute respiratory failure with hypoxia; R65.21 Severe sepsis with septic shock; J15.6 Pneumonia due to other Gram-negative bacteria; N17.0 Acute kidney failure with tubular necrosis; J69.0 Pneumonitis due to inhalation of food and vomit; I21.A1 Myocardial infarction type 2; N39.0 Urinary tract infection, site not specified; I13.0 Hypertensive heart and chronic kidney disease with heart failure and stage 1 through stage 4 chronic kidney disease, or unspecified chronic kidney disease; L97.429 Non-pressure chronic ulcer of left heel and midfoot with unspecified severity; J98.11 Atelectasis; E87.20 Acidosis, unspecified; E87.1 Hypo-osmolality and hyponatremia; D68.59 Other primary thrombophilia; I50.9 Heart failure, unspecified; N18.9 Chronic kidney disease, unspecified; E11.65 Type 2 diabetes mellitus with hyperglycemia; E11.22 Type 2 diabetes mellitus with diabetic chronic kidney disease; Z20.822 Contact with and (suspected) exposure to COVID-19; E78.5 Hyperlipidemia, unspecified; I70.0 Atherosclerosis of aorta; K57.90 Diverticulosis of intestine, part unspecified, without perforation or abscess without bleeding; Z86.16 Personal history of COVID-19; F03.C0 Unspecified dementia, severe, without behavioral disturbance, psychotic disturbance, mood disturbance, and anxiety; N40.0 Benign prostatic hyperplasia without lower urinary tract symptoms; Z79.01 Long term (current) use of anticoagulants; Z79.51 Long term (current) use of inhaled steroids; Z79.4 Long term (current) use of insulin; Z79.899 Other long term (current) drug therapy; R13.10 Dysphagia, unspecified; S90.32XA Contusion of left foot, initial encounter; X58.XXXA Exposure to other specified factors, initial encounter; Y92.9 Unspecified place or not applicable; S90.822A Blister (nonthermal), left foot, initial encounter; B96.89 Other specified bacterial agents as the cause of diseases classified elsewhere; I48.91 Unspecified atrial fibrillation; Z74.09 Other reduced mobility; D64.9 Anemia, unspecified; E11.621 Type 2 diabetes mellitus with foot ulcer; E11.622 Type 2 diabetes mellitus with other skin ulcer; N28.1 Cyst of kidney, acquired; Y95 Nosocomial condition; Z82.49 Family history of ischemic heart disease and other diseases of the circulatory system; E86.0 Dehydration; B35.1 Tinea unguium; M20.42 Other hammer toe(s) (acquired), left foot; M21.371 Foot drop, right foot; M21.372 Foot drop, left foot; N20.0 Calculus of kidney; Z93.1 Gastrostomy status
CPT/HCPCS: 31720; 36415; 36600; 71045-TC; 76770-TC; 80048-TC; 80076-TC; 80202-TC; 81001; 82728-TC; 82803-TC; 82962-TC; 83540-TC; 83605-TC; 83735-TC; 83880; 84100-TC; 84300-TC; 84443-TC; 84484-TC; 85025-TC; 85730-TC; 87040-TC; 87081-TC; 87086-TC; 87806; 93307-TC; 94799-TC; C9803; G0378; J0692; J1815; J1940; J2916; J3370; J3490; J7030; J7040; J7042; J7050; J7060; J7120

== ENCOUNTER 2022-01-12 18:34 | Inpatient (IN) | payer MEDICARE, OTHER ==
[~2022-01-12] VITALS: Ht 167.6 cm; Wt 71.2 kg
[~2022-01-12 18:34] MED LIST: ACET-868 GT; ACET1OOV6 HHN; AMIN30LI2 GT; APIX2.5T GT; ASCO-352 GT; BISA10SU11 RC; DIGO125T GT; FAMO20TA8 GT; FURO-145 GT; GUAI600T53 GT; INSU100V39 SQ; INSU100V7 SQ; IPRA3AMP23 IH; MULT-447 GT; NUT.237L30 GT; ONDA4TAB11 GT; SODI1TAB66 GT; ZINC220C6 GT
--- NOTE | 2022-01-12 18:35 | NUR ---
RECEIVED PT 89 yrs MALE CAME FROM [facility] aloc and low o2 saturation on 100% NRM WITH TACHYPNEA
[2022-01-12] MEDS ORDERED: IV NS 0.9% 1,000 ML BAG IV ONE (19:00)
[2022-01-12] MEDS ORDERED: PIPERACILLIN /TAZOBACTAM 3.375 G in IV D5W 50 ML IV ONE (19:00)
[2022-01-12] MEDS ORDERED: VANCOMYCIN 1 GM in IV D5W 250 ML IV ONE (19:00)
--- NOTE | 2022-01-12 19:12 | NUR ---
phleb at beside for blood draw
[2022-01-12] MEDS ORDERED: VANCOMYCIN 1 GM VIAL ONE (19:17)
--- NOTE | 2022-01-12 19:17 | NUR ---
urine collected and sent to lab
[2022-01-12] MEDS ORDERED: PIPERACILLIN /TAZOBACTAM 3.375 G VIAL IV ONE (19:18)
--- NOTE | 2022-01-12 19:20 | NUR ---
HAND OFF THIERNO SEGOVIA
--- NOTE | 2022-01-12 19:23 | NUR ---
emt at bedside for ekg
[2022-01-12] MEDS ORDERED: IPRA0.2S9 IH (19:26)
[2022-01-12] MEDS ORDERED: CEFE1VIA3 IV (19:26)
[2022-01-12] MEDS ORDERED: VANC1VIA4 IV (19:26)
[2022-01-12] MEDS ORDERED: LACT1CAP7 GT (19:26)
[2022-01-12] MEDS ORDERED: MAGN400O6 GT (19:26)
[2022-01-12] MEDS ORDERED: ALBU2.5V38 IH (19:26)
[2022-01-12] MEDS ORDERED: GUAI100S11 GT (19:26)
[2022-01-12 19:36] LABS: CARBON DIOXIDE 32 mmol/L (21-32); CHLORIDE 96 mmol/L (98-107); CREATININE 1.3 mg/dL (0.6-1.3); GLUCOSE 200 mg/dL (74-106); POTASSIUM 4.1 mmol/L (3.5-5.1); SODIUM SERUM 134 mmol/L (136-145); UREA NITROGEN, BLOOD 46 mg/dL (7-18)
[2022-01-12 19:44] LABS: BILIRUBIN,URINE NEGATIVE (NEGATIVE); COLOR,URINE YELLOW (YELLOW); LEUKOCYTE ESTERASE ,URINE MODERATE (NEGATIVE); NITRITE, URINE NEGATIVE (NEGATIVE); PROTEIN,URINE 30 mg/dl (NEGATIVE); UGLUCOSE NEGATIVE (NEGATIVE); UROBILINOGEN,URINE 0.2 EU/dL (0.2)
[2022-01-12 19:49] LABS: ALANINE AMINOTRANSFERASE 21 U/L (12-78); ALBUMIN 2.5 g/dL (3.4-5.0); ALKALINE PHOSPHATASE 111 U/L (46-116); ASPARTATE AMINOTRANSFERASE 24 U/L (15-37); BILIRUBIN,DIRECT 0.1 mg/dL (0.0-0.2); BILIRUBIN,TOTAL 0.5 mg/dL (0.2-1.0); TOTAL PROTEIN, SERUM 7.5 g/dL (6.4-8.2)
[2022-01-12 19:50] LABS: ABG BASE EXCESS 4.3 mmol/L; ABG PCO2 39.9 mmHg (35.0-45.0); ABG PH 7.469 (7.350-7.450); COHb 0.3 % (0.5-1.5); MetHb 0.2 % (0.0-1.5); O2Hb 89.9 % (94.0-97.0); SITE, ABG Right Radial; VENT MODE, BG NRB 15L
[2022-01-12 19:53] LABS: BASOPHILS % (AUTO) 0.3 % (0.0-2.0); HEMATOCRIT 28 % (39-51); HEMOGLOBIN 9.2 g/dL (13.5-17.5); LYMPHOCYTES # (AUTO) 1.2 K/uL (0.8-4.8); LYMPHOCYTES % (AUTO) 10.9 % (20.0-44.0); MEAN CORPUSCULAR HGB CONC 33 g/dl (31.0-36.0); MEAN CORPUSCULAR VOLUME 89 fL (80-96); MONOCYTES # (AUTO) 0.6 K/uL (0.1-1.30); MONOCYTES % (AUTO) 5.4 % (2.0-12.0); NEUTROPHILS % (AUTO) 81.4 % (43.0-81.0); PLATELET COUNT (AUTO) 185 K/uL (150-450); WHITE BLOOD COUNT (AUTO) 11.1 K/uL (4.3-11.0)
--- NOTE | 2022-01-12 19:53 | NUR ---
IVF PAUSED PER MD DUE TO CHF NOTED IN CXRAY
[2022-01-12 19:54] LABS: RBC,URINE 0-2 /HPF (0-2); WBC,URINE 0-2 /HPF (0-3)
[2022-01-12 19:55] LABS: BACTERIA,URINE Rare /HPF (None Seen); SQUAMOUS EPITHELIAL CELL,UR Few /HPF (None Seen)
[2022-01-12] MEDS ORDERED: FUROSEMIDE 40 MG/4 ML VIAL ONE (19:55)
[2022-01-12] MEDS ORDERED: FUROSEMIDE 40 MG/4 ML VIAL IV ONE (20:00)
--- NOTE | 2022-01-12 20:05 | NUR ---
RAPID FLU AND COVID SWABS SENT TO LAB
[2022-01-12] MEDS ORDERED: hydrALAZINE HCL 50 MG TABLET ONE (21:02)
[2022-01-12] MEDS: hydrALAZINE HCL 25 MG TABLET PO SCH (21:09)
[2022-01-12] MEDS ORDERED: hydrALAZINE HCL IV 20 MG VIAL IV PRN (21:30)
[2022-01-12] MEDS ORDERED: DEXTROSE 50%-WATER 50 ML DISP.SYRIN IV PRN (21:30)
[2022-01-12] MEDS ORDERED: ACETAMINOPHEN 650 MG/SUPP.RECT RC PRN (21:30)
[2022-01-12] MEDS ORDERED: GUAIFENESIN 300 MG/15 ML UDC GT PRN (21:30)
[2022-01-12] MEDS ORDERED: GLUCERNA 1.2 1,000 ML BOTTLE NG PRN (21:30)
[2022-01-12] MEDS ORDERED: BISACODYL SUPP (10 MG) 10 MG/SUPP.RECT SUPP.RECT RC PRN (21:30)
[2022-01-12] MEDS ORDERED: ONDANSETRON HCL/PF 4 MG/2 ML VIAL IVP PRN (21:30)
[2022-01-12] MEDS ORDERED: MORPHINE SULFATE INJ 2 MG/ML DISP.SYRIN IV PRN (21:30)
[2022-01-12] MEDS ORDERED: Z GUARD REMEDY 4 OZ OINT TP PRN (21:30)
--- NOTE | 2022-01-12 21:31 | NUR ---
REPORT GIVEN TO ANGELLA
--- NOTE | 2022-01-12 21:49 | NUR ---
PT TRANSPORTED TO ICU 262 ON LUGGAGE REPAIRER PER ACLS. NO IV INFUSIONS O2 AT 15LPM NRB. HANDOFF TO ANGELLA SEGOVIA.
[2022-01-12 21:52] VITALS: BP 173/78
[2022-01-12 23:00] VITALS: BP 127/60
[2022-01-12] MEDS: DIGOXIN 0.125 MG TABLET GT SCH (23:17)
[2022-01-12] MEDS: BLOOD SUGAR DIAGNOSTIC 1 EACH STRIP IN SCH (23:41)
[2022-01-12] MEDS: INSULIN REGULAR, HUMAN 100 UNIT/ML 3 ML VIAL SQ PRN (23:46)
[2022-01-13] VITALS (24 sets, daily range): BP systolic 111–170; BP diastolic 55–84
[2022-01-13] MEDS ORDERED: INSULIN REGULAR, HUMAN 100 UNIT/ML 3 ML VIAL ONE (00:04)
[2022-01-13] MEDS: ACETYLCYSTEINE 10% SOLN 400 MG/4 ML VIAL HHN SCH ×4 (00:11→23:13)
[2022-01-13 04:00] LABS: BASOPHILS % (AUTO) 0.2 % (0.0-2.0); EOSINOPHILS % (AUTO) 1.3 % (0.0-6.0); HEMATOCRIT 27 % (39-51); LYMPHOCYTES # (AUTO) 0.9 K/uL (0.8-4.8); LYMPHOCYTES % (AUTO) 6.9 % (20.0-44.0); MEAN CORPUSCULAR HGB CONC 33 g/dl (31.0-36.0); MEAN CORPUSCULAR VOLUME 90 fL (80-96); MONOCYTES # (AUTO) 0.7 K/uL (0.1-1.30); MONOCYTES % (AUTO) 5.3 % (2.0-12.0); NEUTROPHILS # (AUTO) 11.5 K/uL (1.8-8.9); NEUTROPHILS % (AUTO) 86.3 % (43.0-81.0); PLATELET COUNT (AUTO) 181 K/uL (150-450); RED BLOOD CELL COUNT(AUTO) 3.02 MIL/uL (4.5-6.0); WHITE BLOOD COUNT (AUTO) 13.4 K/uL (4.3-11.0)
[2022-01-13 04:08] LABS: CALCIUM, SERUM 8.9 mg/dL (8.5-10.1); CARBON DIOXIDE 35 mmol/L (21-32); CHLORIDE 97 mmol/L (98-107); CREATININE 1.4 mg/dL (0.6-1.3); GLUCOSE 121 mg/dL (74-106); MAGNESIUM 2.4 mg/dL (1.8-2.4); PHOSPHORUS 4.6 mg/dL (2.5-4.9); POTASSIUM 3.6 mmol/L (3.5-5.1); SODIUM SERUM 136 mmol/L (136-145); UREA NITROGEN, BLOOD 44 mg/dL (7-18)
[2022-01-13] MEDS: BLOOD SUGAR DIAGNOSTIC 1 EACH STRIP IN SCH ×4 (05:13→23:42)
[2022-01-13] MEDS: hydrALAZINE HCL 25 MG TABLET PO SCH ×3 (05:13→21:10)
--- NOTE | 2022-01-13 07:22 | NUR ---
WOUND CARE CONSULT: PT SLEEPING AT THIS TIME. REVIEWED CHART,NURSING DOCUMENTATION, PHOTOS AND SENDING FACILITY INFORMATION WHICH INDICATES LEFT HEEL DRY WOUND, DISCOLORATION TO SACRUM AND RT BUTTOCK WOUND, PRESENT ON ADMISSION. DR ANN TO BE CALLED THIS AM FOR SURGICAL/DPM CONSULT. RECOMMENDATIONS MADE FOR SKIN PROTECTION. DISCUSSED WITH NURSING STAFF. IN AGREEMENT WITH PLAN OF CARE. Addendum: 01/13/22 at 0751 by CITLALLI CHO WNDNU PT SEEN FOR SKIN ASSESSMENT AND NOTED TO HAVE BROWN/PINK DRY WOUND TO LEFT HEEL, OPEN SKIN TO RT BUTTOCK AND INTACT DEEP TISSUE INJURY TO SACRUM, ALL PRESENT ON ADMISSION. FIRST STEP LOW AIRLOSS MATTRESS ORDERED.
[2022-01-13] MEDS: ZINC SULFATE 220 MG CAPSULE GT SCH (08:20)
[2022-01-13] MEDS: ASCORBIC ACID 500 MG TABLET GT SCH (08:20)
[2022-01-13] MEDS: APIXABAN 2.5 MG TABLET GT SCH ×2 (08:21→21:12)
[2022-01-13] MEDS: FUROSEMIDE 40 MG/4 ML VIAL IV SCH ×3 (08:22→17:34)
[2022-01-13] MEDS ORDERED: PANTOPRAZOLE 40 MG VIAL IV SCH (09:00)
[2022-01-13] MEDS ORDERED: POTASSIUM CHLORIDE 20 MEQ POWDER PACKET NG SCH (09:00)
[2022-01-13] MEDS ORDERED: MULTIVITAMIN LIQ 5 ML UDC GT SCH (09:00)
[2022-01-13] MEDS ORDERED: CEFEPIME 1 GM in IV D5W 50 ML IV SCH (09:00)
[2022-01-13] MEDS ORDERED: FUROSEMIDE 40 MG/4 ML VIAL IV SCH (09:00)
[2022-01-13] MEDS ORDERED: ACIDOPHILUS/BULGARICUS 1 EACH GRAN.PACK GT SCH (09:00)
[2022-01-13] MEDS: CEFEPIME 2 GM in IV D5W 100 ML IV SCH ×2 (09:19→21:09)
[2022-01-13] MEDS: ACIDOPHILUS/BULGARICUS 1 EACH TAB.CHEW GT SCH ×2 (09:20→09:23)
[2022-01-13] MEDS: PROSOURCE / PROSTAT (PYXIS) 30 ML UDC GT SCH (09:23)
[2022-01-13] MEDS: MULTIVITAMINS,THERAGRAN 1 UDTAB TABLET GT SCH (09:23)
[2022-01-13 11:34] LABS: MAGNESIUM 2.4 mg/dL (1.8-2.4)
[2022-01-13] MEDS: INSULIN REGULAR, HUMAN 100 UNIT/ML 3 ML VIAL SQ PRN ×3 (13:45→23:44)
[2022-01-13] MEDS ORDERED: VANCOMYCIN 1 GM in IV D5W 250 ML IV SCH (18:00)
[2022-01-13] MEDS ORDERED: EPOETIN ALFA (10,000 UNIT) 10,000 UNIT/ML VIAL SQ ONE (19:00)
--- NOTE | 2022-01-13 20:00 | NUR ---
Received patient obtunded in no acute distress.Afib controlled.70's-80's.Afebrile.Normotensive. On Simple mask at 10L well tolerated SPO2 99%.GT feeding in progress.Aspiration precaution maintain with HOB elevated.FC to gravity.Turned and repositioned to comfort.Patient DNR/DNI status.
[2022-01-13] MEDS: DIGOXIN 0.125 MG TABLET GT SCH (21:11)
--- NOTE | 2022-01-13 22:00 | NUR ---
Patient incontinent of stool.Perineal care done.Bed bath rendered.Complete linens changed. KCI mattress applied.Turned and repositioned.Patient with sob with activity and desat to 70's. Secretions suctioned.
[2022-01-13] MEDS: ALBUTEROL FS 2.5 MG/3 ML VIAL.NEB NEB PRN (23:13)
[2022-01-14] VITALS (17 sets, daily range): BP systolic 109–131; BP diastolic 52–74
[2022-01-14 04:14] LABS: BASOPHILS # (AUTO) 0.1 K/uL (0.0-0.2); BASOPHILS % (AUTO) 0.2 % (0.0-2.0); EOSINOPHILS % (AUTO) 0.1 % (0.0-6.0); HEMATOCRIT 26 % (39-51); HEMOGLOBIN 8.4 g/dL (13.5-17.5); LYMPHOCYTES # (AUTO) 0.8 K/uL (0.8-4.8); LYMPHOCYTES % (AUTO) 3.1 % (20.0-44.0); MEAN CORPUSCULAR HGB CONC 33 g/dl (31.0-36.0); MEAN CORPUSCULAR VOLUME 91 fL (80-96); MONOCYTES # (AUTO) 0.9 K/uL (0.1-1.30); MONOCYTES % (AUTO) 3.6 % (2.0-12.0); NEUTROPHILS # (AUTO) 23.1 K/uL (1.8-8.9); PLATELET COUNT (AUTO) 174 K/uL (150-450); RED BLOOD CELL COUNT(AUTO) 2.86 MIL/uL (4.5-6.0); WHITE BLOOD COUNT (AUTO) 24.8 K/uL (4.3-11.0)
[2022-01-14 04:23] LABS: ALANINE AMINOTRANSFERASE 20 U/L (12-78); ALBUMIN 2.4 g/dL (3.4-5.0); ALKALINE PHOSPHATASE 84 U/L (46-116); ASPARTATE AMINOTRANSFERASE 27 U/L (15-37); BILIRUBIN,TOTAL 0.6 mg/dL (0.2-1.0); CARBON DIOXIDE 34 mmol/L (21-32); CHLORIDE 97 mmol/L (98-107); CREATININE 1.9 mg/dL (0.6-1.3); GLUCOSE 183 mg/dL (74-106); MAGNESIUM 2.6 mg/dL (1.8-2.4); PHOSPHORUS 4.5 mg/dL (2.5-4.9); POTASSIUM 3.8 mmol/L (3.5-5.1); SODIUM SERUM 135 mmol/L (136-145); TOTAL PROTEIN, SERUM 7.2 g/dL (6.4-8.2); UREA NITROGEN, BLOOD 54 mg/dL (7-18)
[2022-01-14] MEDS: hydrALAZINE HCL 25 MG TABLET PO SCH ×3 (04:42→20:44)
--- NOTE | 2022-01-14 05:10 | NUR ---
Received call from lab regarding patient Troponin 125.Jayme LOPEZ notified no new orders received.VSS.Patient status unchanged.Tolerating GT feeding well.Turned and repositioned Q 2hrs off loading pressure points.Kept comfortable.
--- NOTE | 2022-01-14 05:33 | NUR ---
Pt suctioned large amount of thick yellow secretions.
[2022-01-14] MEDS: BLOOD SUGAR DIAGNOSTIC 1 EACH STRIP IN SCH ×3 (05:50→17:51)
[2022-01-14] MEDS: INSULIN REGULAR, HUMAN 100 UNIT/ML 3 ML VIAL SQ PRN ×3 (05:51→17:53)
--- NOTE | 2022-01-14 07:15 | NUR ---
SPRING UP SUPERVISOR OPENING NOTE: RECEIVED PT. IN BED, OBTUNDED, NON-VERBAL, ONLY OPENS EYES TO TACTILE AND PAINFUL STIMULI. NO S/S OF PAIN AT THIS TIME. ON SIMPLE MASK O2 AT 10 L/MIN SATURATING AT 93%. LADLE WATCHER READS AFIB CONTROLLED AT 78 BPM. ON MOSS CATH, DRAINING CLEAR YELLOW URINE. IV ACCESS ON LUCIO PICC LINE, PATENT WITH NS RUNNING AT TKO 10ML/HR. IV DRESSING C/D/I WITH NO S/S OF INFILTRATION. SAFETY MEASURES IN PLACE: BED IN LOWEST AND LOCKED POSITION, HOB ELEVATED AT 30 DEGREES, BED ALARM ON, CALL LIGHT WITHIN REACH. WILL TURN AND REPOSITION AT LEAST Q2H. WILL CONTINUE TO MONITOR PT. FOR ANY CHANGES.
--- NOTE | 2022-01-14 07:20 | NUR ---
APPLICATION MANAGER NOTE: PT.'S G-TUBE SITE, C/D/I WITH NO LEAKAGE NOTED. GLUCERNA 1.2 CURRENTLY RUNNING AT 20 ML/HR. 3ML GASTRIC RESIDUAL NOTED. WILL CONTINUE TO MONITOR PT.'S TUBE FEEDING TOLERANCE.
[2022-01-14] MEDS: ACETYLCYSTEINE 10% SOLN 400 MG/4 ML VIAL HHN SCH ×3 (07:35→23:21)
[2022-01-14] MEDS: MULTIVITAMINS,THERAGRAN 1 UDTAB TABLET GT SCH (08:52)
[2022-01-14] MEDS: ACIDOPHILUS/BULGARICUS 1 EACH TAB.CHEW GT SCH (08:52)
[2022-01-14] MEDS: ZINC SULFATE 220 MG CAPSULE GT SCH (08:52)
[2022-01-14] MEDS: ASCORBIC ACID 500 MG TABLET GT SCH (08:52)
[2022-01-14] MEDS: PANTOPRAZOLE 40 MG/PACK PACK GT SCH (08:52)
[2022-01-14] MEDS: APIXABAN 2.5 MG TABLET GT SCH ×2 (08:54→20:46)
[2022-01-14] MEDS: CEFEPIME 2 GM in IV D5W 100 ML IV SCH (08:54)
[2022-01-14] MEDS: PROSOURCE / PROSTAT (PYXIS) 30 ML UDC GT SCH (09:00)
--- NOTE | 2022-01-14 11:00 | NUR ---
END POLISHER NOTE: PT.'S TUBE FEEDING RATE CHANGED TO 65 ML/HR WITH GOAL OF 80 ML/HR X 20 HRS. WILL ADVANCE RATE TOLERATED AND ORDERED. WILL CONTINUE TO MONITOR PT.'S TOLERANCE TO TUBE FEEDING.
[2022-01-14] MEDS: IV NS 0.9% 250 ML IV PRN ×2 (12:13→20:25)
[2022-01-14] MEDS: MEROPENEM 500 MG in IV NS 0.9% 50 ML IV SCH ×2 (12:14→20:25)
--- NOTE | 2022-01-14 12:52 | NUR ---
INCLUSION SPECIAL EDUCATOR NOTE: APRESOLINE 25MG VIA NG TUBE HELD DUE TO BP OF 112/52 WITH HR OF 76 BPM. WILL CONTINUE TO MONITOR'S PT. HEMODYNAMIC STATUS.
--- NOTE | 2022-01-14 15:40 | NUR ---
MOWER SHARPENERLIFEGUARD NOTE: TRANSFERRED PT. TO TELE ROOM # 323-2 AT 1530 VIA HOSPITAL BED. REPORT GIVEN AT BEDSIDE TO BRANCH MAKERCHERRI SEGOVIA. PT. REMAINS IN BED, OBTUNDED, NON-VERBAL, ONLY OPENS EYES TO TACTILE AND PAINFUL STIMULI. NO S/S OF PAIN AT THIS TIME. NOW ON O2 VIA NASAL CANNULA AT 4 L/MIN SATURATING AT 98%. BIOINFORMATICS ENGINEER READS AFIB CONTROLLED AT 98 BPM. G-TUBE FEEDING OF GLUCERNA 1.2 RUNNING AT 65ML/HR WITH GOAL OF 80 ML/HR X 20HRS. 3ML GASTRIC RESIDUAL NOTED AT 1500. ON MOSS CATH, DRAINING CLEAR YELLOW URINE WITH OUTPUT OF 200 ML SO FAR THIS SHIFT. TOLERATING TUBE FEEDING WELL. IV ACCESS ON LUCIO PICC LINE, PATENT WITH NS RUNNING AT TKO 10ML/HR. IV DRESSING C/D/I WITH NO S/S OF INFILTRATION. WOUND TREATMENT DONE ORDERED. SAFETY MEASURES MAINTAINED: BED IN LOWEST AND LOCKED POSITION, HOB ELEVATED AT 30 DEGREES, BED ALARM ON, CALL LIGHT WITHIN REACH. TURNED AND REPOSITIONED AT LEAST Q2H. PT. CHART AND MEDICATIONS HANDED TO BRANCH MAKERLUCA HARLEY AT BEDSIDE. NO PT. BELONGINGS. ENDORSED CONTINUITY OF CARE TO BRANCH MAKERCHERRI SEGOVIA.
--- NOTE | 2022-01-14 15:40 | NUR ---
RN NOTES PATIENT WAS TRANSFERRED FORM ICU, PATIENT CAME TO UNIT VIA GURNEY WITH NO SIGNS OF DISTRESS. REPORT RECEIVED FROM ICU NURSE. V/S TAKEN AND STABLE. PATIENT AWAKE IN BED RESTING, A/O X 0. NO S/S OF PAIN NOTED AT THIS TIME. ON 4L OXYGEN, NO DISTRESS OR SHORTNESS OF BREATH NOTED. IV ACCESS LUCIO PICC-LINE, INTACT, PATENT, FLUSHING WELL. PATIENT WITH EXTERNAL SENIOR RESEARCH PROJECT MANAGER WITH CURRENT READING OF A-FIB AND HR OF 85, NO CARDIAC DISTRESS NOTED AT THIS TIME. PATIENT HAVE A MOSS CATHETER IN PLACE AND DRAINING WELL. FALL AND SAFETY MEASURES IN PLACE, BED ALARM ON, BED IN LOW LOCK POSITION, CALL LIGHT AND TABLE WITHIN EASY REACH, SIDE RAILS UP X2. WILL CONTINUE TO MONITOR.
--- NOTE | 2022-01-14 19:43 | NUR ---
RN CLOSING NOTE PATIENT AWAKE IN BED RESTING, A/O X 0. NO S/S OF PAIN NOTED AT THIS TIME. ON 4L OXYGEN, NO DISTRESS OR SHORTNESS OF BREATH NOTED. IV ACCESS LUCIO PICC-LINE, INTACT, PATENT, FLUSHING WELL. PATIENT WITH EXTERNAL HOME CARE SPECIALIST WITH CURRENT READING OF A-FIB AND HR OF 88, NO CARDIAC DISTRESS NOTED AT THIS TIME. PATIENT HAVE A MOSS CATHETER IN PLACE AND DRAINING WELL. FALL AND SAFETY MEASURES IN PLACE, BED ALARM ON, BED IN LOW LOCK POSITION, CALL LIGHT AND TABLE WITHIN EASY REACH, SIDE RAILS UP X2. WILL ENDORSE TO MANUFACTURING SCHEDULER.
[2022-01-14] MEDS: MUPIROCIN OINT 2% 22 GM TUBE NS SCH (20:29)
[2022-01-14] MEDS: DIGOXIN 0.125 MG TABLET GT SCH (20:47)
[2022-01-14] MEDS: GLUCERNA 1.2 1,000 ML BOTTLE NG PRN (21:40)
--- NOTE | 2022-01-14 23:21 | NUR ---
RT MEDS NOT SCANNED DUE TO NO SCANNER AVAILABLE.
[2022-01-15] VITALS: BP 106/55
[2022-01-15] MEDS: BLOOD SUGAR DIAGNOSTIC 1 EACH STRIP IN SCH ×5 (00:41→23:59)
[2022-01-15] MEDS: INSULIN REGULAR, HUMAN 100 UNIT/ML 3 ML VIAL SQ PRN ×4 (00:43→23:58)
--- NOTE | 2022-01-15 03:30 | NUR ---
RT LATE ENTRY PT DESATURATED, PT CHANGED FROM 4 LPM NC TO 10 LPM SIMPLE MASK, TO 15 LPM NRB. NT SUCTION DONE. AND PT WAS REPOSITIONED SATURATION IMPROVED.
--- NOTE | 2022-01-15 03:44 | NUR ---
03:20 DESATURATION During incontinent care, observed patient shortness of breath, pale. Oxygen sat 83% in 4L NC. Repositioned upright, BP 157/73 pulse 111, Suction oral secretion. 03:22 Blood glucose 152mg/dl. Oxygen sat low 80's in simple mask. Active Code status DNR/DNI 01/13/22. MD progress notes CPR okay according to the son, but no intubation. 03:30 Oxygen sat high 80's, low 90's on Non rebreather mask. Called son to verify code status, left message to voice mail. 03:56 BP 144/68 Pulse 97. Now maintaining Oxygenation 100% on non rebreather mask. Notified MD. Will cont to monitor.
[2022-01-15 04:00] VITALS: BP 144/68
[2022-01-15] MEDS: ALBUTEROL FS 2.5 MG/3 ML VIAL.NEB NEB SCH ×4 (05:00→19:48)
[2022-01-15 05:17] LABS: ABG BASE EXCESS 4.7 mmol/L; ABG OXYGEN SATURATION 98.5 % (92.0-98.5); ABG PCO2 44.7 mmHg (35.0-45.0); ABG PH 7.436 (7.350-7.450); ABG PO2 138.1 mmHg (75.0-100.0); AaDO2 530.2 mmHg; COHb 0.3 % (0.5-1.5); O2Hb 98.2 % (94.0-97.0); SITE, ABG Right Radial; VENT MODE, BG 15LNRB
--- NOTE | 2022-01-15 05:21 | NUR ---
UPDATED FAMILY 04:58 Ishan Benedict called back. Reviewed patients code status DNR/DNI with ishan Benedict, stated "I want intubation for my father also, and CPR". Confirmed with LUCA Roberts, ishan Benedict made decision to Full treatment. Notified CONTROL SYSTEMS DEVELOPER Milo. Code status changed to Full Code, Co-signed by LUCA Roberts.
[2022-01-15] MEDS: IPRATROPIUM NEB FS 0.5 MG/2.5 ML AMPUL.NEB NEB SCH ×4 (05:30→19:48)
[2022-01-15] MEDS: ALBUTEROL FS 2.5 MG/3 ML VIAL.NEB NEB PRN (05:42)
--- NOTE | 2022-01-15 05:44 | NUR ---
RT STAT ABG COMPLETED AND RESULTS GIVEN TO HEAD COUNSELOR GRACE. PRN BREATHING TX GIVEN, WILL PLACE PT ON 10 LPM SIMPLE MASK AFTER TX
[2022-01-15] MEDS: hydrALAZINE HCL 25 MG TABLET PO SCH ×3 (05:45→21:15)
--- NOTE | 2022-01-15 06:40 | NUR ---
END OF SHIFT REPORT Patient in bed, non verbal, eyes closed. Afib controlled in the Tele monitor HR 71. Patient on 10L simple mask, maintaining Oxygenation 93-94%. LUCIO PICC line intact, on IV abx. Afebrile throughout shift. Tube feeding at 80ml/hr at goal rate, tolerating well with zero residual. Blood glucose q6H with insulin SS parameters. Simpson cath to drainage with output yellow and cloudy. Turned and repositioned, incontinent care done. New skin photo place in the chart, wound consult. Patient now on simple mask 10L, maintaining Oxygenation 93-94%. Code status Full Code as son Jak decision Full treatment for his Father. Will endorse to oncoming RN.
[2022-01-15 07:11] LABS: BASOPHILS % (AUTO) 0.2 % (0.0-2.0); HEMATOCRIT 26 % (39-51); HEMOGLOBIN 8.4 g/dL (13.5-17.5); LYMPHOCYTES # (AUTO) 0.3 K/uL (0.8-4.8); LYMPHOCYTES % (AUTO) 1.3 % (20.0-44.0); MEAN CORPUSCULAR HGB CONC 32 g/dl (31.0-36.0); MEAN CORPUSCULAR VOLUME 91 fL (80-96); MONOCYTES # (AUTO) 0.9 K/uL (0.1-1.30); MONOCYTES % (AUTO) 4.1 % (2.0-12.0); NEUTROPHILS # (AUTO) 20.4 K/uL (1.8-8.9); NEUTROPHILS % (AUTO) 94.4 % (43.0-81.0); PLATELET COUNT (AUTO) 160 K/uL (150-450); RED BLOOD CELL COUNT(AUTO) 2.86 MIL/uL (4.5-6.0); WHITE BLOOD COUNT (AUTO) 21.6 K/uL (4.3-11.0)
[2022-01-15] MEDS: ACETYLCYSTEINE 10% SOLN 400 MG/4 ML VIAL HHN SCH ×2 (08:04→14:42)
--- NOTE | 2022-01-15 08:11 | NUR ---
WOUND CARE: RECEIVED CONSULT FOR DISCOLORATION TO RT BUTTOCK, PRESENT ON ADMISSION. DEFER TO SURGICAL TEAM CURRENTLY ON CASE. DISCUSSED SKIN PROTECTION WITH NURSING STAFF. MD IN AGREEMENT WITH PLAN OF CARE.
[2022-01-15 08:20] LABS: CARBON DIOXIDE 30 mmol/L (21-32); CHLORIDE 98 mmol/L (98-107); CREATININE 2.7 mg/dL (0.6-1.3); GLUCOSE 247 mg/dL (74-106); POTASSIUM 4.6 mmol/L (3.5-5.1); SODIUM SERUM 138 mmol/L (136-145); UREA NITROGEN, BLOOD 77 mg/dL (7-18)
[2022-01-15] MEDS: MUPIROCIN OINT 2% 22 GM TUBE NS SCH ×2 (09:00→21:17)
[2022-01-15] MEDS ORDERED: IV NS 0.9% 1,000 ML IV ONE (09:00)
[2022-01-15] MEDS: PROSOURCE / PROSTAT (PYXIS) 30 ML UDC GT SCH (09:00)
--- NOTE | 2022-01-15 11:05 | NUR ---
RN NOTE RECEIVED PT FROM [facility], RECEIVED REPORT FROM LUCA REDDY. PT ON O2 VIA SIMPLE MASK @10L WITH LABORED BREATHING. O2 SAT 100. V/S STABLE. WILL CONT TO MONITOR.
[2022-01-15] MEDS: ACIDOPHILUS/BULGARICUS 1 EACH TAB.CHEW GT SCH (11:41)
[2022-01-15] MEDS: PANTOPRAZOLE 40 MG/PACK PACK GT SCH (11:41)
[2022-01-15] MEDS: ASCORBIC ACID 500 MG TABLET GT SCH (11:41)
[2022-01-15] MEDS: MULTIVITAMINS,THERAGRAN 1 UDTAB TABLET GT SCH (11:41)
[2022-01-15] MEDS: ZINC SULFATE 220 MG CAPSULE GT SCH (11:42)
[2022-01-15] MEDS: APIXABAN 2.5 MG TABLET GT SCH ×2 (11:43→21:16)
[2022-01-15] MEDS: MEROPENEM 500 MG in IV NS 0.9% 50 ML IV SCH ×2 (12:12→21:14)
[2022-01-15 13:05] VITALS: BP 126/56
--- NOTE | 2022-01-15 13:58 | NUR ---
RN NOTE PMD CARDIO MADE AWARE OF PVC READING ON TELE. NO NEW ORDERS.
[2022-01-15 15:09] LABS: CARBON DIOXIDE 32 mmol/L (21-32); CHLORIDE 97 mmol/L (98-107); CREATININE 2.9 mg/dL (0.6-1.3); GLUCOSE 236 mg/dL (74-106); POTASSIUM 4.6 mmol/L (3.5-5.1); SODIUM SERUM 137 mmol/L (136-145)
[2022-01-15 15:22] LABS: UREA NITROGEN, BLOOD 81 mg/dL (7-18)
[2022-01-15 16:00] VITALS: BP 119/61
[2022-01-15] MEDS: GLUCERNA 1.2 1,000 ML BOTTLE NG PRN (16:15)
[2022-01-15] MEDS ORDERED: VANCOMYCIN HCL 0.75 GM in IV D5W 250 ML IV SCH (18:00)
--- NOTE | 2022-01-15 18:37 | NUR ---
RN NOTE PT RESTING IN BED, ON O2 VIA SIMPLE MASK @10L, TOLERATING WELL. GT IN PLACE WITH FEEDING GLUCERNA 1.2 @80/HR. ASPIRATION PREC FOLLOWED. PT WITH IV ACCESS ON LUCIO PICC, NO IVF. PT SHOWING AFIB WITH PVC ON TELE MONITOR. DUE MEDICATIONS GIVEN, AM/PM CARE DONE.
--- NOTE | 2022-01-15 19:10 | NUR ---
RN NOTES RECEIVED REPORT FROM MORNING RN. PATIENT IN BED RESPONSIVE TO TACTILE STIMULI. ON SIMPLE MASK AT 10 LPM SATING 99%. WITH IV ACCESS AT R UPPER ARM PICC LINE PATENT FLUSHES WELL. WITH GT PATENT CONNECTED TO CONTINUOS FEEDING AT 80CC/HR NO GASTRIC RESIDUAL NOTED. WITH MOSS CONNECTED TO URINE BAG DRAINING YELLOWISH URINE OUTPUT. ALL SAFETY MEASURES IN PLACE AT ALL TIMES HOB ELEVATED. CALL LIGHT WITHIN REACH. WILL CLOSELY MONITOR THE PATIENT
[2022-01-15 20:00] VITALS: BP 135/68
[2022-01-15] MEDS: DIGOXIN 0.125 MG TABLET GT SCH (21:14)
[2022-01-16] VITALS (7 sets, daily range): BP systolic 106–138; BP diastolic 53–70
[2022-01-16] MEDS: ACETYLCYSTEINE 10% SOLN 400 MG/4 ML VIAL HHN SCH ×4 (00:25→23:39)
[2022-01-16] MEDS: IPRATROPIUM NEB FS 0.5 MG/2.5 ML AMPUL.NEB NEB SCH ×4 (00:31→19:41)
[2022-01-16] MEDS: ALBUTEROL FS 2.5 MG/3 ML VIAL.NEB NEB SCH ×4 (00:31→19:42)
--- NOTE | 2022-01-16 00:56 | NUR ---
RT titrated fio2 from 10L SM to 8L SM. tolerating well at this time. notified sandra carvajal
[2022-01-16] MEDS: hydrALAZINE HCL 25 MG TABLET PO SCH ×3 (05:00→21:00)
[2022-01-16] MEDS: BLOOD SUGAR DIAGNOSTIC 1 EACH STRIP IN SCH ×3 (05:36→17:30)
[2022-01-16] MEDS: INSULIN REGULAR, HUMAN 100 UNIT/ML 3 ML VIAL SQ PRN ×4 (05:37→23:55)
[2022-01-16 06:48] LABS: BILIRUBIN,URINE NEGATIVE (NEGATIVE); COLOR,URINE YELLOW (YELLOW); LEUKOCYTE ESTERASE ,URINE NEGATIVE (NEGATIVE); NITRITE, URINE NEGATIVE (NEGATIVE); PH,URINE 5.5 (5.0-8.0); PROTEIN,URINE 100 mg/dl (NEGATIVE); UGLUCOSE NEGATIVE (NEGATIVE); UROBILINOGEN,URINE 0.2 EU/dL (0.2)
--- NOTE | 2022-01-16 06:52 | NUR ---
RN NOTES PATIENT STILL ON SIMPLE MASK AT 8LPM TOLERATING WELL SATING 98%. WITH GT CONNECTED TO CONTINUOS FEEDING TOLERATING WELL. ALL SAFETY MEASURES IN PLACE AT ALL TIMES. HOB ELEVATED. CALL LIGHT WITHIN REACH. MOSS CONNECTED TO URINE BAG PATENT DRAINING WELL. WILL ENDORSED TO MORNING SHIFT FOR [facility]ARTA
--- NOTE | 2022-01-16 07:09 | NUR ---
RN OPEN NOTE PATIENT IS IN BED RESTING, A/O X 0. NO S/S OF PAIN NOTED AT THIS TIME. PATIENT IS NON VERBAL ON 10 L VIA MASK OXYGEN, NO DISTRESS OR SHORTNESS OF BREATH NOTED. IV ACCESS LUCIO PICC-LINE, INTACT, PATENT, FLUSHING WELL. PATIENT WITH EXTERNAL LEGAL SECRETARY RECEPTIONIST WITH CURRENT READING OF A-FIB AND HR OF 88, NO CARDIAC DISTRESS NOTED AT THIS TIME. PATIENT HAVE A MOSS CATHETER IN PLACE AND DRAINING WELL. FALL AND SAFETY MEASURES IN PLACE, BED ALARM ON, BED IN LOW LOCK POSITION, CALL LIGHT AND TABLE WITHIN EASY REACH, SIDE RAILS UP X2. WILL CONTINUE TO FALLOW POC
[2022-01-16 07:10] LABS: BACTERIA,URINE 1+ /HPF (None Seen)
[2022-01-16 07:40] LABS: BASOPHILS % (AUTO) 0.3 % (0.0-2.0); EOSINOPHILS % (AUTO) 0.2 % (0.0-6.0); HEMATOCRIT 28 % (39-51); HEMOGLOBIN 8.8 g/dL (13.5-17.5); LYMPHOCYTES # (AUTO) 0.7 K/uL (0.8-4.8); LYMPHOCYTES % (AUTO) 4.7 % (20.0-44.0); MEAN CORPUSCULAR HGB CONC 32 g/dl (31.0-36.0); MEAN CORPUSCULAR VOLUME 92 fL (80-96); MONOCYTES # (AUTO) 1.1 K/uL (0.1-1.30); MONOCYTES % (AUTO) 6.7 % (2.0-12.0); NEUTROPHILS # (AUTO) 13.8 K/uL (1.8-8.9); NEUTROPHILS % (AUTO) 88.1 % (43.0-81.0); PLATELET COUNT (AUTO) 169 K/uL (150-450); RED BLOOD CELL COUNT(AUTO) 3.02 MIL/uL (4.5-6.0); WHITE BLOOD COUNT (AUTO) 15.7 K/uL (4.3-11.0)
[2022-01-16 08:04] LABS: EOSINOPHIL,URINE None Seen
[2022-01-16] MEDS: PANTOPRAZOLE 40 MG/PACK PACK GT SCH (08:06)
[2022-01-16] MEDS: MULTIVITAMINS,THERAGRAN 1 UDTAB TABLET GT SCH (08:06)
[2022-01-16] MEDS: ACIDOPHILUS/BULGARICUS 1 EACH TAB.CHEW GT SCH (08:06)
[2022-01-16] MEDS: ZINC SULFATE 220 MG CAPSULE GT SCH (08:06)
[2022-01-16] MEDS: APIXABAN 2.5 MG TABLET GT SCH ×2 (08:07→21:12)
[2022-01-16] MEDS: ASCORBIC ACID 500 MG TABLET GT SCH (08:08)
[2022-01-16] MEDS: PROSOURCE / PROSTAT (PYXIS) 30 ML UDC GT SCH (08:09)
[2022-01-16 08:25] LABS: CARBON DIOXIDE 29 mmol/L (21-32); CHLORIDE 96 mmol/L (98-107); CREATININE 3.2 mg/dL (0.6-1.3); GLUCOSE 229 mg/dL (74-106); POTASSIUM 4.9 mmol/L (3.5-5.1); SODIUM SERUM 136 mmol/L (136-145)
[2022-01-16 08:54] LABS: CALCIUM, SERUM 8.7 mg/dL (8.5-10.1)
[2022-01-16 08:56] LABS: UREA NITROGEN, BLOOD 91 mg/dL (7-18)
[2022-01-16] MEDS: MEROPENEM 500 MG in IV NS 0.9% 50 ML IV SCH ×2 (09:28→21:11)
[2022-01-16] MEDS: MUPIROCIN OINT 2% 22 GM TUBE NS SCH ×2 (09:29→21:15)
[2022-01-16] MEDS: GLUCERNA 1.2 1,000 ML BOTTLE NG PRN ×2 (14:44→14:49)
[2022-01-16 15:04] LABS: CREATININE, URINE 43.3 MG/DL (30.0-125.0)
--- NOTE | 2022-01-16 18:29 | NUR ---
RN CLOSING NOTE PATIENT IS IN BED RESTING, A/O X 0. NO S/S OF PAIN NOTED AT THIS TIME. PATIENT IS NON VERBAL ON 10 L VIA MASK OXYGEN, NO DISTRESS OR SHORTNESS OF BREATH NOTED. IV ACCESS LUCIO PICC-LINE, INTACT, PATENT, FLUSHING WELL. 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 PATIENT HAVE A MOSS CATHETER IN PLACE AND DRAINING WELL. FALL AND SAFETY MEASURES IN PLACE, BED ALARM ON, BED IN LOW LOCK POSITION, CALL LIGHT AND TABLE WITHIN EASY REACH, SIDE RAILS UP X2. WILL ENDORSE DIGITAL MARKETING INTERN NURSE TO FALLOW POC
--- NOTE | 2022-01-16 19:05 | NUR ---
RN OPENING NOTE RECEIVED PATIENT IN ASLEEP, NON VERBAL, ON SIMPLE MASK 10L, TOLERATING WELL, NO S/S OF ACUTE DISTRESS, SATURATION , TELE MONITOR READING AFIB CONTROLLED HR 91.IV ACCESS LUCIO PICC, INTACT AND PATENT,G TUBE PRESENT RUNNING GLUCERNA @80ML/HR, NO RESIDUAL NOTED. MOSS CATHETER CURRENTLY DRAINING CLEAR YELLOW URINE. ALL SAFETY MEASURES IN PLACE, BED ALARM ON, BED IN LOW LOCK POSITION, CALL LIGHT AND TABLE WITHIN EASY REACH, SIDE RAILS UP X2. WILL CONTINUE TO MONITOR THROUGHOUT SHIFT.
--- NOTE | 2022-01-16 21:14 | NUR ---
RN NOTE HELD HYDRALAZINE. BP 100/67 HR 86.
[2022-01-16] MEDS: DIGOXIN 0.125 MG TABLET GT SCH (22:20)
[2022-01-17] VITALS (55 sets, daily range): BP systolic 85–170; BP diastolic 38–111
--- NOTE | 2022-01-17 00:10 | NUR ---
RN NOTE RT TITRATED DOWN TO 6L, TOLERATING WELL, WILL CONTINUE TO MONITOR
[2022-01-17] MEDS: IPRATROPIUM NEB FS 0.5 MG/2.5 ML AMPUL.NEB NEB SCH ×4 (01:59→20:00)
[2022-01-17] MEDS: ALBUTEROL FS 2.5 MG/3 ML VIAL.NEB NEB SCH ×4 (01:59→20:00)
[2022-01-17] MEDS: BLOOD SUGAR DIAGNOSTIC 1 EACH STRIP IN SCH ×5 (02:36→23:52)
[2022-01-17] MEDS: hydrALAZINE HCL 25 MG TABLET PO SCH ×3 (05:04→21:00)
[2022-01-17] MEDS ORDERED: VANCOMYCIN HCL 0.75 GM in IV D5W 250 ML IV SCH ×2 (06:00→09:00)
[2022-01-17 06:05] LABS: BASOPHILS % (AUTO) 0.2 % (0.0-2.0); EOSINOPHILS % (AUTO) 0.3 % (0.0-6.0); HEMATOCRIT 28 % (39-51); LYMPHOCYTES # (AUTO) 0.7 K/uL (0.8-4.8); LYMPHOCYTES % (AUTO) 5.2 % (20.0-44.0); MEAN CORPUSCULAR HGB CONC 32 g/dl (31.0-36.0); MEAN CORPUSCULAR VOLUME 91 fL (80-96); MONOCYTES # (AUTO) 1.2 K/uL (0.1-1.30); MONOCYTES % (AUTO) 8.2 % (2.0-12.0); NEUTROPHILS # (AUTO) 12.2 K/uL (1.8-8.9); NEUTROPHILS % (AUTO) 86.1 % (43.0-81.0); PLATELET COUNT (AUTO) 202 K/uL (150-450); RED BLOOD CELL COUNT(AUTO) 3.07 MIL/uL (4.5-6.0); WHITE BLOOD COUNT (AUTO) 14.2 K/uL (4.3-11.0)
[2022-01-17 06:28] LABS: ABG BASE EXCESS 3.3 mmol/L; ABG OXYGEN SATURATION 94.2 % (92.0-98.5); ABG PCO2 58.5 mmHg (35.0-45.0); ABG PH 7.331 (7.350-7.450); ABG PO2 79.1 mmHg (75.0-100.0); AaDO2 175.2 mmHg; COHb 0.1 % (0.5-1.5); MetHb 0.1 % (0.0-1.5); SITE, ABG Right Radial; VENT MODE, BG 6 L SIMPLE MASK
--- NOTE | 2022-01-17 06:30 | NUR ---
TD RN NOTES PTS NOTED WORK OF BREATHING ,PTS ON 6 LITERS SIMPLE MASK ,RELAYED PTS TO [facility] WITH ORDER STAT ABG , CONTINUE TO MONITOR. RT AT BEDSIDE.
--- NOTE | 2022-01-17 06:40 | NUR ---
RN NOTE SPOKE WITH DARSHANA FROM LAB AND ADVISED TO DISCARD THE 0600 DOSE OF VANCO
--- NOTE | 2022-01-17 06:52 | NUR ---
RN NOTE SPOKE WITH SON ERIC TO VERIFY CODE STATUS. PATIENT WILL TRANSFER TO ICU
--- NOTE | 2022-01-17 06:54 | NUR ---
TD RN NOTES ABG RESULT CO2 58.5 RELAYED TO [facility] WITH ORDER PUT PTS ON BIPAP . PTS IS FULL CODE CONFIRM STATUS WITH FAMILY. SHOES SALESPERSON MADE AWARE OF ORDER , PTS WILL TRANSFER TO ICU TO ROOM 258.
[2022-01-17] MEDS: INSULIN REGULAR, HUMAN 100 UNIT/ML 3 ML VIAL SQ PRN ×3 (07:02→23:51)
--- NOTE | 2022-01-17 07:28 | NUR ---
RN CLOSING NOTE PATIENT IS BEING TRANSFERRED TO ICU FOR HIGH LEVEL OF CO2.. ENDORSED TO MORNING SHIFT RN FOR MARTA. ALL SAFETY MEASURES IN PLACE, BED ALARM ON, BED IN LOW LOCK POSITION, CALL LIGHT AND TABLE WITHIN EASY REACH, SIDE RAILS UP X2.
--- NOTE | 2022-01-17 07:42 | NUR ---
PT ARRIVED IN ICU FROM [facility]. BEDSIDE REPORT RECEIVED. PT BEING PUT ON BIPAP. BREATHING APPEARS LABORED, MD'S NOTIFIED. PT SETTLED IN ROOM, MONITORING APPLIED.
[2022-01-17] MEDS: ACETYLCYSTEINE 10% SOLN 400 MG/4 ML VIAL HHN SCH ×3 (07:52→23:30)
--- NOTE | 2022-01-17 07:59 | NUR ---
rn note per night cleaner rn, pt being transferred to icu due to high level of C02 58.5. pt is on 6 l simple face mask. gave report to Suzanne ICU nurse for continuity of care. all safety measures in place. call light within reach. bed locked at lowest postion. side rails up x2.
[2022-01-17 08:33] LABS: ALANINE AMINOTRANSFERASE 20 U/L (12-78); ALBUMIN 2.2 g/dL (3.4-5.0); ALKALINE PHOSPHATASE 169 U/L (46-116); ASPARTATE AMINOTRANSFERASE 26 U/L (15-37); BILIRUBIN,TOTAL 0.5 mg/dL (0.2-1.0); CALCIUM, SERUM 8.8 mg/dL (8.5-10.1); CARBON DIOXIDE 29 mmol/L (21-32); CHLORIDE 96 mmol/L (98-107); CREATININE 3.8 mg/dL (0.6-1.3); GLUCOSE 267 mg/dL (74-106); MAGNESIUM 3.4 mg/dL (1.8-2.4); SODIUM SERUM 136 mmol/L (136-145); TOTAL PROTEIN, SERUM 7.7 g/dL (6.4-8.2)
[2022-01-17 08:37] LABS: POTASSIUM 6.3 mmol/L (3.5-5.1); UREA NITROGEN, BLOOD 106 mg/dL (7-18)
--- NOTE | 2022-01-17 09:00 | NUR ---
AM MEDS HELD UNTIL AFTER HD PER PROTOCOL
[2022-01-17] MEDS ORDERED: SODIUM POLYSTYRENE SULF. PWD 15 GM UDC PO ONE (09:30)
[2022-01-17] MEDS: SEVELAMER CARBONATE 800 MG POWD.PACK GT SCH ×3 (09:30→17:04)
[2022-01-17 10:15] LABS: ABG BASE EXCESS 2.5 mmol/L; ABG OXYGEN SATURATION 93.2 % (92.0-98.5); ABG PCO2 53.8 mmHg (35.0-45.0); ABG PH 7.348 (7.350-7.450); ABG PO2 73.5 mmHg (75.0-100.0); AaDO2 149.8 mmHg; COHb 0.2 % (0.5-1.5); MetHb 0.1 % (0.0-1.5); O2Hb 92.9 % (94.0-97.0); SITE, ABG Right Radial; VENT MODE, BG BIPAP 20/5 R20 40%
--- NOTE | 2022-01-17 10:48 | NUR ---
RT PATIENT ORALLY INTUBATED WITH A 8.0 ETT SECURED AT 24CM AT THE LIP. POST CHEST XRAY ETT PUSHED IN 2CM AND SECURED AT 26CM @LIP PER DR BLANTON. VENT SETTINGS AND ALARMS SET PER ORDER. AMBU BAG AT [facility]. BRONCH PERFORMED AT BEDSIDE PER CRYSTAL BLANOTN. LARGE AMOUNTS OF SECRETIONS REMOVED. Addendum: 01/17/22 at 1245 by VALERY JIMENEZ RT Amended: Links added.
--- NOTE | 2022-01-17 11:00 | NUR ---
PT INTUBATED PER MD ORDERS AT [address] CRYSTAL BLANTON. AFTER INTUBATION PT HAD COPIOUS SECRETIONS, PT WAS BRONCHED IMMEDIATELY BY DR CRYSTAL BLANTON. DR POWELL AT BEDSIDE FOR BRONCH.
--- NOTE | 2022-01-17 11:30 | NUR ---
RIGHT IJ HD CATHETER WITH PIGTAIL INSERTED AT THIS TIME BY DR CRYSTAL BLANTON.
[2022-01-17] MEDS: FENTANYL CITRAT IV 2,500 MCG in IV NS 0.9% 200 ML IV PRN (11:57)
[2022-01-17] MEDS: MIDAZOLAM HCL 100 MG in IV NS 0.9% 80 ML IV PRN (11:57)
[2022-01-17] MEDS ORDERED: VANCOMYCIN 0.75 GM in IV D5W 250 ML IV SCH (13:00)
[2022-01-17] MEDS ORDERED: IV NS 0.9% 1,000 ML IV ONE (13:00)
[2022-01-17] MEDS ORDERED: ROCURONIUM BROMIDE 50 MG/5 ML IV ONE (13:13)
[2022-01-17] MEDS ORDERED: ETOMIDATE 2 MG/ML VIAL IV ONE (13:13)
[2022-01-17] MEDS ORDERED: NEPRO 1,000 ML BOTTLE GT PRN (13:30)
--- NOTE | 2022-01-17 15:45 | NUR ---
HD COMPLETED AT THIS TIME. 2L REMOVED
[2022-01-17] MEDS: PROSOURCE / PROSTAT (PYXIS) 30 ML UDC GT SCH (17:03)
[2022-01-17] MEDS: MULTIVITAMINS,THERAGRAN 1 UDTAB TABLET GT SCH (17:04)
[2022-01-17] MEDS: ACIDOPHILUS/BULGARICUS 1 EACH TAB.CHEW GT SCH (17:04)
[2022-01-17] MEDS: ASCORBIC ACID 500 MG TABLET GT SCH (17:04)
[2022-01-17] MEDS: MEROPENEM 500 MG in IV NS 0.9% 50 ML IV SCH ×2 (17:04→21:58)
[2022-01-17] MEDS: ZINC SULFATE 220 MG CAPSULE GT SCH (17:04)
[2022-01-17] MEDS: PANTOPRAZOLE 40 MG/PACK PACK GT SCH (17:04)
[2022-01-17] MEDS: MUPIROCIN OINT 2% 22 GM TUBE NS SCH ×2 (17:07→21:59)
[2022-01-17] MEDS: APIXABAN 2.5 MG TABLET GT SCH ×2 (17:08→21:57)
--- NOTE | 2022-01-17 19:04 | NUR ---
END OF SHIFT NOTE: PT HAD AN EVENTFUL SHIFT. PT WAS TRANSFERRED TO ICU AT 0742. INTUBATED AT 1048, FOLLOWED BY A BRONCH AND RIGHT IJ HD CATH INSERTION. FIRST HD STARTED AT 1255, ENDED AT 1545, 2L REMOVED. PT IS SEDATED ON FENTANYL AND VERSED PER MD ORDERS. PT CHECKED ON HOURLY AND PRN BY NURSING STAFF.
[2022-01-17] MEDS: DIGOXIN 0.125 MG TABLET GT SCH (21:57)
--- NOTE | 2022-01-17 23:14 | NUR ---
LAUNDRY SORTER OPENING NOTE RECEIVED REPORT FROM LAUNDRY SORTER NIKOS. PT RECEIVED IN BED, SEDATED WITH FENTANYL AT 100 MCG/HR AND VERSED AT 2 MG/HR. PT ETT #8 AND 26 AT THE LIP; AC 15, TV 500, FIO2 40%, PEEP 5 WITH CURRENT O2SAT OF 96%; NO S/S OF RESP DISTRESS, NO SOB OR COUGH, NON-LABORED AND EQUAL BREATHING. PT ATTACHED TO EXTERNAL MONITOR, AFIB CONTROLLED WITH HR OF 77. MOSS INTACT AND PATENT, NO UO YET. RIJ HD CATH IN PLACE, DRESSING C/D/I. NEPRO AT 80 ML/HR; NO RESIDUAL NOTED. BED IN LOWEST POSITION, CALL LIGHT WITHIN REACH, SIDERAILS UP X3. WILL CONTINUE TO MONITOR THROUGHOUT THE NIGHT.
[2022-01-18] VITALS (80 sets, daily range): BP systolic 88–121; BP diastolic 33–62
[2022-01-18] MEDS: ALBUTEROL FS 2.5 MG/3 ML VIAL.NEB NEB SCH ×4 (01:46→20:11)
[2022-01-18] MEDS: IPRATROPIUM NEB FS 0.5 MG/2.5 ML AMPUL.NEB NEB SCH ×4 (01:46→20:11)
[2022-01-18] MEDS: ACETYLCYSTEINE 10% SOLN 400 MG/4 ML VIAL HHN SCH ×4 (01:46→23:50)
[2022-01-18 04:33] LABS: BASOPHILS % (AUTO) 0.5 % (0.0-2.0); EOSINOPHILS % (AUTO) 0.9 % (0.0-6.0); HEMATOCRIT 23 % (39-51); HEMOGLOBIN 7.4 g/dL (13.5-17.5); LYMPHOCYTES # (AUTO) 1.1 K/uL (0.8-4.8); LYMPHOCYTES % (AUTO) 13.2 % (20.0-44.0); MEAN CORPUSCULAR HGB CONC 32 g/dl (31.0-36.0); MEAN CORPUSCULAR VOLUME 90 fL (80-96); MONOCYTES # (AUTO) 0.8 K/uL (0.1-1.30); MONOCYTES % (AUTO) 9.6 % (2.0-12.0); NEUTROPHILS # (AUTO) 6.3 K/uL (1.8-8.9); NEUTROPHILS % (AUTO) 75.8 % (43.0-81.0); PLATELET COUNT (AUTO) 174 K/uL (150-450); RED BLOOD CELL COUNT(AUTO) 2.56 MIL/uL (4.5-6.0); WHITE BLOOD COUNT (AUTO) 8.3 K/uL (4.3-11.0)
[2022-01-18 04:59] LABS: ALANINE AMINOTRANSFERASE 15 U/L (12-78); ALBUMIN 1.8 g/dL (3.4-5.0); ALKALINE PHOSPHATASE 95 U/L (46-116); ASPARTATE AMINOTRANSFERASE 23 U/L (15-37); BILIRUBIN,TOTAL 0.5 mg/dL (0.2-1.0); CALCIUM, SERUM 8.2 mg/dL (8.5-10.1); CARBON DIOXIDE 31 mmol/L (21-32); CHLORIDE 98 mmol/L (98-107); CREATININE 2.7 mg/dL (0.6-1.3); GLUCOSE 207 mg/dL (74-106); MAGNESIUM 2.6 mg/dL (1.8-2.4); PHOSPHORUS 3.5 mg/dL (2.5-4.9); POTASSIUM 4.1 mmol/L (3.5-5.1); SODIUM SERUM 136 mmol/L (136-145); TOTAL PROTEIN, SERUM 6.6 g/dL (6.4-8.2); UREA NITROGEN, BLOOD 62 mg/dL (7-18)
[2022-01-18] MEDS: hydrALAZINE HCL 25 MG TABLET PO SCH ×3 (05:00→21:00)
[2022-01-18] MEDS: BLOOD SUGAR DIAGNOSTIC 1 EACH STRIP IN SCH ×3 (05:17→16:47)
[2022-01-18] MEDS: INSULIN REGULAR, HUMAN 100 UNIT/ML 3 ML VIAL SQ PRN ×3 (05:26→16:49)
--- NOTE | 2022-01-18 06:56 | NUR ---
DISTRICT ADVISER CLOSING NOTE PT REMAINS IN BED, SEDATED; APPEARS COMFORTABLE OVERALL AND IN NO APPARENT DISTRESS. PT TOLERATED VENT SETTINGS WELL WITH O2SAT IN THE 90S; NO S/S OF RESP DISTRESS, NO SOB OR COUGH, NON-LABORED AND EQUAL BREATHING. PT ATTACHED TO EXTERNAL MONITOR, AFIB CONTROLLED WITH HR IN THE 70S THROUGHOUT THE NIGHT. MOSS INTACT AND PATENT, HAD VERY MINIMAL UO; URINE IS CLEAR AND YELLOW. RIJ HD CATH IN PLACE, DRESSING C/D/I. NEPRO AT 80 ML/HR. ALL DUE MEDS ADMINISTERED DURING THE NIGHT. BED IN LOWEST POSITION, CALL LIGHT WITHIN REACH, SIDERAILS UP X3. WILL ENDORSE TO DAYSHIFT NURSE TO CONTINUE CARE.
[2022-01-18 07:51] LABS: ABG BASE EXCESS 4.2 mmol/L; ABG OXYGEN SATURATION 98.4 % (92.0-98.5); ABG PCO2 32.5 mmHg (35.0-45.0); ABG PH 7.535 (7.350-7.450); ABG PO2 117.3 mmHg (75.0-100.0); AaDO2 130.5 mmHg; COHb 0.1 % (0.5-1.5); O2Hb 98.3 % (94.0-97.0); SITE, ABG Right Radial
--- NOTE | 2022-01-18 08:00 | NUR ---
RN NOTES RECEIVED PATIENT SEDATED FENTANYL 100MCG/KG/MIN, AND VERSED 2MG/KG/HR . PATIENT HAS NO ACUTE RESPIRATORY DISTRESS, ETT SETTING TOLERATING WELL FIO2- 99% TV- 500, PEEP-5; HR-75 ON BEDSIDE MONITOR. RECHECKED GTF PLACEMENT NO RESIDUAL RUNNING NEPRO @80ML/HR ON 20HR. NO URINE OUTPUT, MOSS INTACT AND PATENT, RIJ HD CATH IN PLACE. LUCIO PICC LINE INTACT INFUSING TKO @10ML/HR. DUE MEDS ADMINISTERED VIA GT, FLASHED 200ML OF WATER. ASSIST TURN AND REPOSTION Q 2 HR. KEEP HOB ELEVATED FOR ASPIRATION PRECAUTION. WILL FOLLOW UP.
[2022-01-18] MEDS ORDERED: VANCOMYCIN HCL 0.75 GM in IV D5W 250 ML IV SCH (09:00)
[2022-01-18] MEDS: SEVELAMER CARBONATE 800 MG POWD.PACK GT SCH ×3 (09:20→16:58)
[2022-01-18] MEDS: PROSOURCE / PROSTAT (PYXIS) 30 ML UDC GT SCH (09:21)
[2022-01-18] MEDS: ACIDOPHILUS/BULGARICUS 1 EACH TAB.CHEW GT SCH (09:21)
[2022-01-18] MEDS: ASCORBIC ACID 500 MG TABLET GT SCH (09:21)
[2022-01-18] MEDS: PANTOPRAZOLE 40 MG/PACK PACK GT SCH (09:21)
[2022-01-18] MEDS: MUPIROCIN OINT 2% 22 GM TUBE NS SCH ×2 (09:22→21:50)
[2022-01-18] MEDS: APIXABAN 2.5 MG TABLET GT SCH ×2 (09:27→21:51)
[2022-01-18] MEDS: MEROPENEM 500 MG in IV NS 0.9% 50 ML IV SCH ×2 (09:28→21:04)
[2022-01-18] MEDS: MULTIVITAMINS,THERAGRAN 1 UDTAB TABLET GT SCH (09:28)
[2022-01-18] MEDS: ZINC SULFATE 220 MG CAPSULE GT SCH (09:28)
[2022-01-18] MEDS: IV NS 0.9% 250 ML IV PRN (11:50)
--- NOTE | 2022-01-18 11:54 | NUR ---
rn notes bs-277 mg/dl coverage given, seen hospitalist Dr Suggs get new order d/c Simpson, replace condom cath, and hemodialyses today.
[2022-01-18] MEDS: FENTANYL CITRAT IV 2,500 MCG in IV NS 0.9% 200 ML IV PRN (12:47)
[2022-01-18] MEDS: MIDAZOLAM HCL 100 MG in IV NS 0.9% 80 ML IV PRN (12:55)
--- NOTE | 2022-01-18 13:20 | NUR ---
rn notes patient getting HD at this time.
[2022-01-18] MEDS ORDERED: EPOETIN ALFA-EPBX 10,000 UNIT/ML VIAL IV ONE (15:00)
[2022-01-18] MEDS: NEPRO 1,000 ML BOTTLE GT SCH (15:45)
--- NOTE | 2022-01-18 16:15 | NUR ---
RN NOTES FINISHED DIALYSIS AT THIS TIME OUTPUT WAS 2000ML. PATIENT STABLE, BP 108/49, P-71.
--- NOTE | 2022-01-18 18:30 | NUR ---
RN NOTES PATIENT PM CARE DONE, SUCTION, MOUTH CARE, PATIENT SEDATED, TOLERATING SEDATION WELL, INFUSING FENTANYL 100MCG/KG/MIN, AND VERSED 2 MG/KG/HR, TKO @10ML/HR ON LUCIO PICC LINE INTACT. GTF INTACT NEPRO RUNNING 54 ML/HR, REMOVED F/C, INSERTED CONDOM CATH PER Dr JOSUE'S ORDER. ASSIST TURN AND REPOSTION Q 2 HR. KEEP HOB ELEVATED FOR ASPIRATION PRECAUTION. ENDORSED ONCOMING NURSE FOLLOW PLAN OF CARE.
--- NOTE | 2022-01-18 19:15 | NUR ---
RN OPENING NOTES RECEIVED PATIENT ON BED, SEDATED. PT. ON ETT SIZE 8, 26CM BY THE LIP, WITH VENT SETTINGS AC-16, TV- 500, FIO2-40%, PEEP- 5, SATING AT 99%. AFEBRILE, NO S/S OF DISTRESS NOTED. WITH LUCIO PICC LINE, PATENT, INTACT, FLUSHED WITH NS. NO S/S OF INFILTRATION NOTED. RUNNING WITH FENTANYL @ 100 MCG/HR AND VERSED 2 MG/HR. RIGHT IJ HD SITE WITH PIGTAIL. GTUBE PATENT INTACT, VERIFIED PLACEMENT BY AUSCULTATION. CONDOM CATHETER INTACT. REPOSITION PATIENT EVERY 2 HRS. ALL SAFETY PRECAUTION PROVIDED, BED IN LOWEST POSITION, LOCKED. BED ALARM ARMED. CALL LIGHT WITH IN REACH. CONTINUE TO MONITOR.
[2022-01-18] MEDS: DIGOXIN 0.125 MG TABLET GT SCH (21:51)
[2022-01-19] VITALS (96 sets, daily range): BP systolic 89–152; BP diastolic 38–96
[2022-01-19] MEDS: BLOOD SUGAR DIAGNOSTIC 1 EACH STRIP IN SCH ×4 (00:23→18:08)
[2022-01-19] MEDS: INSULIN REGULAR, HUMAN 100 UNIT/ML 3 ML VIAL SQ PRN ×4 (00:28→18:12)
[2022-01-19] MEDS: IPRATROPIUM NEB FS 0.5 MG/2.5 ML AMPUL.NEB NEB SCH ×4 (01:48→19:59)
[2022-01-19] MEDS: ALBUTEROL FS 2.5 MG/3 ML VIAL.NEB NEB SCH ×4 (01:48→19:59)
[2022-01-19] MEDS: hydrALAZINE HCL 25 MG TABLET PO SCH ×3 (05:00→21:20)
[2022-01-19 05:22] LABS: BASOPHILS % (AUTO) 0.5 % (0.0-2.0); EOSINOPHILS % (AUTO) 1.2 % (0.0-6.0); HEMATOCRIT 24 % (39-51); HEMOGLOBIN 7.8 g/dL (13.5-17.5); LYMPHOCYTES # (AUTO) 0.9 K/uL (0.8-4.8); LYMPHOCYTES % (AUTO) 10.4 % (20.0-44.0); MEAN CORPUSCULAR HGB CONC 33 g/dl (31.0-36.0); MEAN CORPUSCULAR VOLUME 91 fL (80-96); MONOCYTES # (AUTO) 0.9 K/uL (0.1-1.30); MONOCYTES % (AUTO) 9.9 % (2.0-12.0); NEUTROPHILS # (AUTO) 6.8 K/uL (1.8-8.9); PLATELET COUNT (AUTO) 179 K/uL (150-450); RED BLOOD CELL COUNT(AUTO) 2.61 MIL/uL (4.5-6.0); WHITE BLOOD COUNT (AUTO) 8.8 K/uL (4.3-11.0)
[2022-01-19 05:28] LABS: CALCIUM, SERUM 9.2 mg/dL (8.5-10.1); CARBON DIOXIDE 30 mmol/L (21-32); CHLORIDE 103 mmol/L (98-107); CREATININE 2.2 mg/dL (0.6-1.3); GLUCOSE 218 mg/dL (74-106); MAGNESIUM 2.5 mg/dL (1.8-2.4); PHOSPHORUS 2.8 mg/dL (2.5-4.9); POTASSIUM 4.1 mmol/L (3.5-5.1); SODIUM SERUM 138 mmol/L (136-145); UREA NITROGEN, BLOOD 42 mg/dL (7-18)
--- NOTE | 2022-01-19 06:00 | NUR ---
RN NOTES NOTIFIED JESSICA CRUZ REGARDING PATIENT LATEST, WBC-44, PALATELETS 30, POTASSIUM 2.5 WITH NEW ORDER POTASSIUM 40MEQ IV NOTED AND CARRIED OUT. Addendum: 01/19/22 at 2009 by NIKOS VILLARREAL RN WRONG PATIENT
[2022-01-19] MEDS: ACETYLCYSTEINE 10% SOLN 400 MG/4 ML VIAL HHN SCH ×3 (07:35→23:24)
--- NOTE | 2022-01-19 08:00 | NUR ---
RN NOTES RN NOTES PATIENT STILL SEDATED FENTANYL 100MCG/KG/MIN, AND VERSED 2MG/KG/HR . PATIENT HAS NO ACUTE RESPIRATORY DISTRESS, ETT SETTING TOLERATING WELL FIO2- 99% TV- 500, PEEP-5; HR-75 ON BEDSIDE MONITOR. RECHECKED GTF PLACEMENT NO RESIDUAL RUNNING NEPRO @54 ML/HR ON 20HR. NO URINE OUTPUT, PATIENT CONDOM CATH RIJ HD CATH IN PLACE. LUCIO PICC LINE INTACT INFUSING TKO @10ML/HR. DUE MEDS ADMINISTERED VIA GT, ASSIST TURN AND REPOSTION Q 2 HR. KEEP HOB ELEVATED FOR ASPIRATION PRECAUTION.
[2022-01-19] MEDS: IV NS 0.9% 250 ML IV PRN (08:56)
--- NOTE | 2022-01-19 09:00 | NUR ---
RN NOTES PATIENT REMAINS ORALLY INTUBATED ON MECHANICAL VENTILATOR, TITRATED SEDATION FENTANYL AND VERSED PER PROTOCOL FOR SEDATION VACATION, AND WEANING FROM VENT. VSS, SUCTION, ORAL CARE DONE. WILL FOLLOW UP.
[2022-01-19] MEDS: MEROPENEM 500 MG in IV NS 0.9% 50 ML IV SCH ×2 (09:28→21:19)
[2022-01-19] MEDS: ZINC SULFATE 220 MG CAPSULE GT SCH (09:29)
[2022-01-19] MEDS: MULTIVITAMINS,THERAGRAN 1 UDTAB TABLET GT SCH (09:29)
[2022-01-19] MEDS: PANTOPRAZOLE 40 MG/PACK PACK GT SCH (09:29)
[2022-01-19] MEDS: ACIDOPHILUS/BULGARICUS 1 EACH TAB.CHEW GT SCH (09:29)
[2022-01-19] MEDS: ASCORBIC ACID 500 MG TABLET GT SCH (09:29)
[2022-01-19] MEDS: SEVELAMER CARBONATE 800 MG POWD.PACK GT SCH ×3 (09:29→18:09)
[2022-01-19] MEDS: MUPIROCIN OINT 2% 22 GM TUBE NS SCH ×2 (09:32→21:21)
--- NOTE | 2022-01-19 09:35 | NUR ---
RT PER DR SUBRAMANIAN ETT PULLED BACK AND SECURED AT 25CM AT TOP LIP. PATIENT REMAINS ORALLY INTUBATED ON [facility] VENT WITH ORDERED SETTINGS. AMBU BAG AT BEDSIDE. WEANING TRIAL TO BE ATTEMPTED TODAY Addendum: 01/19/22 at 0936 by VALERY JIMENEZ RT Amended: Links added.
[2022-01-19] MEDS: APIXABAN 2.5 MG TABLET GT SCH ×2 (09:36→21:19)
[2022-01-19] MEDS: PROSOURCE / PROSTAT (PYXIS) 30 ML UDC GT SCH (09:37)
--- NOTE | 2022-01-19 12:00 | NUR ---
RN NOTES SEEN PATIENT VIA HOSPITALIST, NEW ORDER IS KEEP MONITORING, BS-177 MG/DL COVERAGE GIVEN, DUE MEDICATION ADMINISTERED. GET NEW ORDER IS INFUSE ONE UNIT OF RBC , HGL-7.7. GET TO CONSENT FORM FROM SON NAMER ERIC ROGER, PHONE # [phone], CO SIGN CHARGE NURSE LV. WILL FOLLOW UP.
--- NOTE | 2022-01-19 13:27 | NUR ---
RN NOTES STARTED ONE UNIE OF BLOOD TRANSFUSION AT THIS TIME, PATIENT INTUBATED, BUT NO SEDATION. NO ACUTE RESPIRATORY DISTRESS, MOVING EASILY WHEN TOUCHING. T-98.6F, P-75, R-16, BP 106/47, 02-95%. HGL -7.8. INFUSING 60ML/HR 326ML ON LUCIO PICC LINE INTACT. WILL FOLLOW UP.
--- NOTE | 2022-01-19 13:51 | NUR ---
RN NOTES PATIENT STABLE NO ACUTE RESPIRATORY DISTRESS, T-98.7F, P-72, R-16, BP- 99/43, NO S/S OF RESPIRATORY DISTRESS. INCREASED BLOOD INFUSION 120 ML/HR . WILL FOLLOW UP.
--- NOTE | 2022-01-19 14:56 | NUR ---
RN NOTES PATIENT TOLERATING BLOOD INFUSION WELL T-98.6, P-72, R-17, BP 110/72, O2-98%, NO ACUTE RESPIRATORY DISTRESS, AWAKE WHEN TOUCHING, CONTINUING 120ML/HR VIA LUCIO PICC LINE INFUSION.
[2022-01-19] MEDS ORDERED: VANCOMYCIN POST DIALYSIS 500MG IV PRN ×2 (15:00)
--- NOTE | 2022-01-19 16:39 | NUR ---
RN NOTES FINISHED BLOOD TRANSFUSION AT THIS TIME PATIENT HAS NO ACUTE RESPIRATORY DISTRESS, T-98.5, P-68, BP 110/45, O2-96%, R-16. MONITORING PATIENT AFTER OFF SEDATION. WILL FOLLOW UP.
--- NOTE | 2022-01-19 17:00 | NUR ---
rn notes held feeding per order after 20hr stop, and resume after four hr.
--- NOTE | 2022-01-19 18:40 | NUR ---
rn notes pm care wilmer, suction, mouth care, due medication administered, infusing ns tko @10ml/hr on LUCIO PICC line intact. assist turn and reposition q 2 hr. no urine output. endorsed oncoming nurse follow plan of care.
--- NOTE | 2022-01-19 19:10 | NUR ---
RN OPENING NOTES RECEIVED PATIENT ON BED, PT. ON ETT SIZE 8, 26CM BY THE LIP, WITH VENT SETTINGS AC-16, TV- 500, FIO2-30%, PEEP- 5, SATING AT 99%. AFEBRILE, NO S/S OF DISTRESS NOTED. WITH LUCIO PICC LINE, PATENT, INTACT, FLUSHED WITH NS. NO S/S OF INFILTRATION NOTED. RIGHT IJ HD SITE WITH PIGTAIL. GTUBE PATENT INTACT, VERIFIED PLACEMENT BY AUSCULTATION. REPOSITION PATIENT EVERY 2 HRS. ALL SAFETY PRECAUTION PROVIDED, BED IN LOWEST POSITION, LOCKED. BED ALARM ARMED. CALL LIGHT WITH IN REACH. CONTINUE TO MONITOR.
[2022-01-19] MEDS: DIGOXIN 0.125 MG TABLET GT SCH (21:20)
[2022-01-19] MEDS: NEPRO 1,000 ML BOTTLE GT SCH (21:30)
--- NOTE | 2022-01-19 21:37 | NUR ---
RN NOTES TUBE FEEDING STARTED NEPHRO @ 54 ML/HR X 20 HRS.
[2022-01-20] VITALS (36 sets, daily range): BP systolic 92–141; BP diastolic 46–92
[2022-01-20] MEDS: INSULIN REGULAR, HUMAN 100 UNIT/ML 3 ML VIAL SQ PRN ×4 (00:22→17:27)
[2022-01-20] MEDS: BLOOD SUGAR DIAGNOSTIC 1 EACH STRIP IN SCH ×4 (00:23→17:23)
[2022-01-20] MEDS: ALBUTEROL FS 2.5 MG/3 ML VIAL.NEB NEB SCH ×4 (00:51→19:54)
[2022-01-20] MEDS: IPRATROPIUM NEB FS 0.5 MG/2.5 ML AMPUL.NEB NEB SCH ×4 (00:51→19:54)
[2022-01-20 04:17] LABS: CALCIUM, SERUM 9.2 mg/dL (8.5-10.1); CARBON DIOXIDE 28 mmol/L (21-32); CHLORIDE 101 mmol/L (98-107); GLUCOSE 201 mg/dL (74-106); POTASSIUM 4.9 mmol/L (3.5-5.1); SODIUM SERUM 136 mmol/L (136-145); UREA NITROGEN, BLOOD 66 mg/dL (7-18)
[2022-01-20] MEDS: hydrALAZINE HCL 25 MG TABLET PO SCH ×3 (05:24→21:16)
[2022-01-20] MEDS: IV NS 0.9% 250 ML IV PRN ×2 (06:19→18:01)
--- NOTE | 2022-01-20 07:31 | NUR ---
RN OPENING NOTES RECEIVED PATIENT ON BED, PT. ON ETT SIZE 8, 25CM BY THE LIP, WITH VENT SETTINGS AC-16, TV- 500, FIO2-30%, PEEP- 5, SATING AT 99%. AFEBRILE, NO S/S OF DISTRESS NOTED. WITH LUCIO PICC LINE, PATENT, INTACT, FLUSHED WITH NS. NO S/S OF INFILTRATION NOTED. RIGHT IJ HD SITE WITH PIGTAIL. GTUBE PATENT INTACT CHECKED PLACEMENT BY AUSCULTATION. SAFETY MEASURES PROVIDED, BED IN LOWEST POSITION, LOCKED. BED ALARM ARMED. CALL LIGHT WITH IN REACH.
--- NOTE | 2022-01-20 07:32 | NUR ---
WOUND CARE CONSULT/FOLLOW UP: PT SEEN FOR SACRAL INTACT DEEP TISSUE INJURY AND RT BUTTOCK DISCOLORATION/DEEP TISSUE INJURY (INTACT) WHICH WERE BOTH NOTED TO BE PRESENT ON ADMISSION. RECOMMENDATIONS MADE FOR SKIN PROTECTION. DISCUSSED WITH NURSING STAFF AND SURGICAL P.A. CURRENTLY ON CASE. PT IS ON FIRST STEP [facility] [place]. IN AGREEMENT WITH PLAN OF CARE.
[2022-01-20] MEDS: ACETYLCYSTEINE 10% SOLN 400 MG/4 ML VIAL HHN SCH ×2 (07:58→13:02)
[2022-01-20] MEDS: SEVELAMER CARBONATE 800 MG POWD.PACK GT SCH ×3 (08:51→16:33)
[2022-01-20] MEDS: ASCORBIC ACID 500 MG TABLET GT SCH (08:51)
[2022-01-20] MEDS: ZINC SULFATE 220 MG CAPSULE GT SCH (08:51)
[2022-01-20] MEDS: ACIDOPHILUS/BULGARICUS 1 EACH TAB.CHEW GT SCH (08:51)
[2022-01-20] MEDS: PANTOPRAZOLE 40 MG/PACK PACK GT SCH (08:51)
[2022-01-20] MEDS: MULTIVITAMINS,THERAGRAN 1 UDTAB TABLET GT SCH (08:52)
[2022-01-20] MEDS: MUPIROCIN OINT 2% 22 GM TUBE NS SCH ×2 (08:52→21:16)
[2022-01-20] MEDS: PROSOURCE / PROSTAT (PYXIS) 30 ML UDC GT SCH (08:54)
[2022-01-20] MEDS: APIXABAN 2.5 MG TABLET GT SCH ×2 (08:55→21:15)
[2022-01-20] MEDS ORDERED: EPOETIN ALFA (10,000 UNIT) 10,000 UNIT/ML VIAL IV ONE (09:00)
[2022-01-20] MEDS: MEROPENEM 500 MG in IV NS 0.9% 50 ML IV SCH ×2 (10:44→21:16)
--- NOTE | 2022-01-20 11:06 | NUR ---
RN NOTE SECOND ATTEMPT [facility] REGARDING EPOGEN HGB 7.8. PER PHARMACY THEY WILL SEND.
[2022-01-20] MEDS: NEPRO 1,000 ML BOTTLE GT SCH (18:24)
--- NOTE | 2022-01-20 18:43 | NUR ---
RN CLOSING NOTES PATIENT ON BED, PT. ON ETT SIZE 8, 25CM BY THE LIP, WITH VENT SETTINGS AC-16, TV- 500, FIO2-30%, PEEP- 5, SATING AT 97%. AFEBRILE, NO S/S OF DISTRESS NOTED. WITH LUCIO PICC LINE, PATENT, INTACT, FLUSHED WITH NS. NO S/S OF INFILTRATION NOTED. RIGHT IJ HD SITE WITH PIGTAIL. GTUBE PRESENT FEEDING TO BE HELD FROM [id number]. SAFETY MEASURES PROVIDED, BED IN LOWEST POSITION, LOCKED. BED ALARM ARMED. CALL LIGHT WITH IN REACH. WILL ENDORSE TO NIGHT NURSE FOR MARTA
[2022-01-20] MEDS: DIGOXIN 0.125 MG TABLET GT SCH (21:17)
[2022-01-21] VITALS (37 sets, daily range): BP systolic 99–157; BP diastolic 37–81
[2022-01-21] MEDS: ACETYLCYSTEINE 10% SOLN 400 MG/4 ML VIAL HHN SCH ×3 (00:11→15:20)
[2022-01-21] MEDS: ALBUTEROL FS 2.5 MG/3 ML VIAL.NEB NEB PRN (00:11)
[2022-01-21] MEDS: BLOOD SUGAR DIAGNOSTIC 1 EACH STRIP IN SCH ×4 (00:13→16:42)
[2022-01-21] MEDS: INSULIN REGULAR, HUMAN 100 UNIT/ML 3 ML VIAL SQ PRN ×3 (00:14→12:27)
[2022-01-21] MEDS: IPRATROPIUM NEB FS 0.5 MG/2.5 ML AMPUL.NEB NEB SCH ×4 (01:25→20:11)
[2022-01-21] MEDS: ALBUTEROL FS 2.5 MG/3 ML VIAL.NEB NEB SCH ×4 (01:25→20:12)
[2022-01-21] MEDS: hydrALAZINE HCL 25 MG TABLET PO SCH ×3 (05:03→21:00)
[2022-01-21 05:05] LABS: CALCIUM, SERUM 8.7 mg/dL (8.5-10.1); CARBON DIOXIDE 31 mmol/L (21-32); CHLORIDE 103 mmol/L (98-107); CREATININE 2.5 mg/dL (0.6-1.3); GLUCOSE 173 mg/dL (74-106); POTASSIUM 3.5 mmol/L (3.5-5.1); SODIUM SERUM 143 mmol/L (136-145); UREA NITROGEN, BLOOD 55 mg/dL (7-18)
--- NOTE | 2022-01-21 07:45 | NUR ---
ICU/RN PT IS INTUBATED ON THE VENT AC MODE,FIO2-30%,SAT O2-100%.V/S STABLE,AFEBRILE.NO PAIN REPORTED AT THIS TIME.PT IS OFF SEDATION .REACTIVE ON PAIN STIMULATION ONLY.RIGHT UPPER ARM PICC LINE.RIGHT IJ-HD CATHTER.PT IS ANURIC.SACRAL WOUND COVERED WITH DRESSING.LABS REVIEW.MD AWARE.SUCTION PROVIDED.ORAL CARE DONE.REPOSITION FOR COMFORT.
[2022-01-21] MEDS: PANTOPRAZOLE 40 MG/PACK PACK GT SCH (08:28)
[2022-01-21] MEDS: ACIDOPHILUS/BULGARICUS 1 EACH TAB.CHEW GT SCH (08:28)
[2022-01-21] MEDS: SEVELAMER CARBONATE 800 MG POWD.PACK GT SCH ×3 (08:28→16:42)
[2022-01-21] MEDS: ASCORBIC ACID 500 MG TABLET GT SCH (08:28)
[2022-01-21] MEDS: ZINC SULFATE 220 MG CAPSULE GT SCH (08:28)
[2022-01-21] MEDS: MEROPENEM 500 MG in IV NS 0.9% 50 ML IV SCH ×2 (08:28→22:23)
[2022-01-21] MEDS: MULTIVITAMINS,THERAGRAN 1 UDTAB TABLET GT SCH (08:28)
[2022-01-21] MEDS: APIXABAN 2.5 MG TABLET GT SCH ×2 (08:29→22:23)
[2022-01-21] MEDS: PROSOURCE / PROSTAT (PYXIS) 30 ML UDC GT SCH (08:29)
[2022-01-21] MEDS: MUPIROCIN OINT 2% 22 GM TUBE NS SCH (08:34)
--- NOTE | 2022-01-21 09:30 | NUR ---
ICU/RN DUE MEDS ARE GIVEN ORDERD.FAMILY AT BED SIDE TALK TO DR SUBRAMANIAN.
[2022-01-21] MEDS ORDERED: FUROSEMIDE 40 MG/4 ML VIAL IV ONE (10:30)
[2022-01-21] MEDS: IV NS 0.9% 250 ML IV PRN (11:15)
[2022-01-21 14:21] LABS: BASOPHILS % (AUTO) 0.4 % (0.0-2.0); HEMATOCRIT 27 % (39-51); HEMOGLOBIN 8.6 g/dL (13.5-17.5); LYMPHOCYTES % (AUTO) 12.2 % (20.0-44.0); MEAN CORPUSCULAR HGB CONC 32 g/dl (31.0-36.0); MEAN CORPUSCULAR VOLUME 88 fL (80-96); MONOCYTES # (AUTO) 0.7 K/uL (0.1-1.30); MONOCYTES % (AUTO) 8.7 % (2.0-12.0); NEUTROPHILS # (AUTO) 6.6 K/uL (1.8-8.9); NEUTROPHILS % (AUTO) 77.7 % (43.0-81.0); PLATELET COUNT (AUTO) 163 K/uL (150-450); RED BLOOD CELL COUNT(AUTO) 3.01 MIL/uL (4.5-6.0); WHITE BLOOD COUNT (AUTO) 8.5 K/uL (4.3-11.0)
[2022-01-21 14:35] LABS: MAGNESIUM 2.8 mg/dL (1.8-2.4); PHOSPHORUS 2.8 mg/dL (2.5-4.9)
[2022-01-21] MEDS ORDERED: ALBUMIN 25% 25 GM in PREMIX 1 EA IV PRN (16:00)
--- NOTE | 2022-01-21 18:09 | NUR ---
ICU/RN DUE MEDS ARE GIVEN ORDERED.PM CARE PROVIDED.HD NURSE AT BEDSIDE.PT HAS HD AT THIS TIME.BP STABLE.CONTINUE MONITORING.
--- NOTE | 2022-01-21 18:41 | NUR ---
ICU/RN HD IS OVER -2L OUT. V/S STABLE ,AFEBRILE.
[2022-01-21] MEDS: DIGOXIN 0.125 MG TABLET GT SCH (22:22)
[2022-01-22] VITALS (28 sets, daily range): BP systolic 90–159; BP diastolic 45–96
[2022-01-22] MEDS: IPRATROPIUM NEB FS 0.5 MG/2.5 ML AMPUL.NEB NEB SCH ×4 (00:02→19:51)
[2022-01-22] MEDS: ALBUTEROL FS 2.5 MG/3 ML VIAL.NEB NEB SCH ×4 (00:02→19:51)
[2022-01-22] MEDS: ACETYLCYSTEINE 10% SOLN 400 MG/4 ML VIAL HHN SCH ×4 (00:02→23:15)
[2022-01-22] MEDS: BLOOD SUGAR DIAGNOSTIC 1 EACH STRIP IN SCH ×4 (00:30→17:02)
[2022-01-22] MEDS: INSULIN REGULAR, HUMAN 100 UNIT/ML 3 ML VIAL SQ PRN ×3 (00:33→17:28)
[2022-01-22] MEDS: ACETAMINOPHEN 325 MG TABLET MC PRN (00:53)
[2022-01-22 05:22] LABS: BASOPHILS % (AUTO) 0.4 % (0.0-2.0); EOSINOPHILS % (AUTO) 1.2 % (0.0-6.0); HEMATOCRIT 26 % (39-51); HEMOGLOBIN 8.4 g/dL (13.5-17.5); LYMPHOCYTES # (AUTO) 0.9 K/uL (0.8-4.8); LYMPHOCYTES % (AUTO) 12.8 % (20.0-44.0); MEAN CORPUSCULAR HGB CONC 32 g/dl (31.0-36.0); MEAN CORPUSCULAR VOLUME 89 fL (80-96); MONOCYTES # (AUTO) 0.7 K/uL (0.1-1.30); MONOCYTES % (AUTO) 9.4 % (2.0-12.0); NEUTROPHILS # (AUTO) 5.6 K/uL (1.8-8.9); NEUTROPHILS % (AUTO) 76.2 % (43.0-81.0); PLATELET COUNT (AUTO) 154 K/uL (150-450); RED BLOOD CELL COUNT(AUTO) 2.91 MIL/uL (4.5-6.0); WHITE BLOOD COUNT (AUTO) 7.3 K/uL (4.3-11.0)
[2022-01-22] MEDS: hydrALAZINE HCL 25 MG TABLET PO SCH ×3 (05:35→21:00)
[2022-01-22 05:47] LABS: MAGNESIUM 2.7 mg/dL (1.8-2.4)
--- NOTE | 2022-01-22 07:40 | NUR ---
ICU/RN PT IS STILL INTUBATED ON THE VENT AC MODE,FIO2-30%,SAT O2-98%.V/S STABLE ,AFEBRILE.OPEN EYES ON PAIN STIMULATION OFF SEDATION.HAS DEMENTIA.RIGHT UPPER ARM PICC LINE. ANURIC.RIGHT IJ HD CATHETER.SACRAL WOUND COVERED WITH MEPILEX.SUCTION PROVIDED.REPOSITION FOR COMFORT.LABS REVIEW.MD AWARE.CONTINUE MONITORING.
[2022-01-22] MEDS: MEROPENEM 500 MG in IV NS 0.9% 50 ML IV SCH ×2 (08:22→21:12)
[2022-01-22] MEDS: SEVELAMER CARBONATE 800 MG POWD.PACK GT SCH ×3 (08:22→17:02)
[2022-01-22] MEDS: MULTIVITAMINS,THERAGRAN 1 UDTAB TABLET GT SCH (08:22)
[2022-01-22] MEDS: ACIDOPHILUS/BULGARICUS 1 EACH TAB.CHEW GT SCH (08:22)
[2022-01-22] MEDS: ASCORBIC ACID 500 MG TABLET GT SCH (08:22)
[2022-01-22] MEDS: ZINC SULFATE 220 MG CAPSULE GT SCH (08:22)
[2022-01-22] MEDS: PROSOURCE / PROSTAT (PYXIS) 30 ML UDC GT SCH (08:23)
[2022-01-22] MEDS: PANTOPRAZOLE 40 MG/PACK PACK GT SCH (08:23)
[2022-01-22] MEDS: APIXABAN 2.5 MG TABLET GT SCH ×2 (08:24→21:11)
--- NOTE | 2022-01-22 09:00 | NUR ---
ICU/RN DUE MEDS ARE GIVEN ORDERED.HD NURSE AT BEDSIDE STARTED HD.
[2022-01-22 10:38] LABS: CALCIUM, SERUM 8.7 mg/dL (8.5-10.1); CARBON DIOXIDE 29 mmol/L (21-32); CHLORIDE 105 mmol/L (98-107); CREATININE 2.3 mg/dL (0.6-1.3); GLUCOSE 153 mg/dL (74-106); POTASSIUM 3.8 mmol/L (3.5-5.1); SODIUM SERUM 143 mmol/L (136-145); UREA NITROGEN, BLOOD 44 mg/dL (7-18)
[2022-01-22] MEDS: NEPRO 1,000 ML BOTTLE GT SCH (10:54)
--- NOTE | 2022-01-22 12:39 | NUR ---
ICU/RN HD IS OVER 2L OUT.V/S STABLE,AFEBRILE.CONTINUE MONITORING.
[2022-01-22 14:04] LABS: BAND % (MANUAL) 1 % (0.0-5.0); EOSINOPHILS % (MANUAL) 1 % (0-4); LYMPHOCYTES % (MANUAL) 10 % (16-48); MONOCYTES % (MANUAL) 5 % (0-11.0); MYELOCYTES % 1 % (0-0); NEUTROPHILS % (MANUAL) 83 (42-76)
--- NOTE | 2022-01-22 15:10 | NUR ---
et-tube pulled back to 23cm per md order
[2022-01-22] MEDS: IV NS 0.9% 250 ML IV PRN (15:24)
[2022-01-22] MEDS: DIGOXIN 0.125 MG TABLET GT SCH (21:10)
[2022-01-23] VITALS (25 sets, daily range): BP systolic 107–172; BP diastolic 50–99
[2022-01-23] MEDS: INSULIN REGULAR, HUMAN 100 UNIT/ML 3 ML VIAL SQ PRN ×5 (00:47→23:55)
[2022-01-23] MEDS: BLOOD SUGAR DIAGNOSTIC 1 EACH STRIP IN SCH ×5 (00:47→23:53)
[2022-01-23] MEDS: ALBUTEROL FS 2.5 MG/3 ML VIAL.NEB NEB SCH ×4 (01:06→19:52)
[2022-01-23] MEDS: IPRATROPIUM NEB FS 0.5 MG/2.5 ML AMPUL.NEB NEB SCH ×4 (01:06→19:52)
[2022-01-23] MEDS: NEPRO 1,000 ML BOTTLE GT SCH (04:53)
[2022-01-23 05:29] LABS: CALCIUM, SERUM 9.7 mg/dL (8.5-10.1); CARBON DIOXIDE 26 mmol/L (21-32); CHLORIDE 107 mmol/L (98-107); CREATININE 2.1 mg/dL (0.6-1.3); GLUCOSE 201 mg/dL (74-106); POTASSIUM 3.5 mmol/L (3.5-5.1); SODIUM SERUM 141 mmol/L (136-145); UREA NITROGEN, BLOOD 43 mg/dL (7-18)
[2022-01-23] MEDS: hydrALAZINE HCL 25 MG TABLET PO SCH ×3 (05:56→21:00)
[2022-01-23] MEDS: ACETYLCYSTEINE 10% SOLN 400 MG/4 ML VIAL HHN SCH ×3 (07:35→23:32)
[2022-01-23] MEDS: PANTOPRAZOLE 40 MG/PACK PACK GT SCH (08:24)
[2022-01-23] MEDS: SEVELAMER CARBONATE 800 MG POWD.PACK GT SCH ×3 (08:24→16:04)
[2022-01-23] MEDS: MULTIVITAMINS,THERAGRAN 1 UDTAB TABLET GT SCH (08:25)
[2022-01-23] MEDS: MEROPENEM 500 MG in IV NS 0.9% 50 ML IV SCH (08:25)
[2022-01-23] MEDS: ZINC SULFATE 220 MG CAPSULE GT SCH (08:25)
[2022-01-23] MEDS: ACIDOPHILUS/BULGARICUS 1 EACH TAB.CHEW GT SCH (08:25)
[2022-01-23] MEDS: PROSOURCE / PROSTAT (PYXIS) 30 ML UDC GT SCH (08:25)
[2022-01-23] MEDS: ASCORBIC ACID 500 MG TABLET GT SCH (08:25)
[2022-01-23] MEDS: APIXABAN 2.5 MG TABLET GT SCH ×2 (08:33→20:59)
[2022-01-23] MEDS: ACETAMINOPHEN 325 MG TABLET MC PRN (08:44)
[2022-01-23] MEDS: IV NS 0.9% 250 ML IV PRN (09:45)
--- NOTE | 2022-01-23 18:36 | NUR ---
RN CLOSING NOTE PT IS RESTING IN BED, OBTUNDED, OPENS EYES TO NAME AND PAIN. ON ORDERED VENT SETTINGS. TOLERATING WELL AT 100%. TELE READS SB 54. GTUBE RUNNING NEPRO @ 45ML/HR X24 HR. IV ACCESS NOTED ON LUCIO PICC AND R IJ. NS RUNNING AT TKO 10 ML/HR. ALL SAFETY MEASURES IN PLACE. WILL ENDORSE TO NIGHT NURSE FOR MARTA.
--- NOTE | 2022-01-23 20:00 | NUR ---
Received patient obtunded and intubtaed to vent.Tolerating prescribed vent settings.No acute distress noted.Afib 50 's.Afebrile,Normotensive.Patient on GT feeding Nepro no residual noted. Maintained HOB elevated.Anuric with HD cath at [facility] intact.NS infusing at TKO to LUCIO PICC line. Site intact.Turned and repositioned for comfort.
[2022-01-23] MEDS: DIGOXIN 0.125 MG TABLET GT SCH (22:00)
[2022-01-24] VITALS (24 sets, daily range): BP systolic 99–155; BP diastolic 39–92
[2022-01-24] MEDS: ALBUTEROL FS 2.5 MG/3 ML VIAL.NEB NEB SCH ×4 (01:57→19:57)
[2022-01-24] MEDS: IPRATROPIUM NEB FS 0.5 MG/2.5 ML AMPUL.NEB NEB SCH ×4 (01:57→19:57)
[2022-01-24] MEDS: NEPRO 1,000 ML BOTTLE GT SCH (04:23)
[2022-01-24] MEDS: IV NS 0.9% 250 ML IV PRN (04:29)
[2022-01-24] MEDS: hydrALAZINE HCL 25 MG TABLET PO SCH ×3 (04:44→21:05)
[2022-01-24] MEDS: BLOOD SUGAR DIAGNOSTIC 1 EACH STRIP IN SCH ×4 (06:20→23:20)
[2022-01-24] MEDS: INSULIN REGULAR, HUMAN 100 UNIT/ML 3 ML VIAL SQ PRN ×3 (06:22→23:28)
--- NOTE | 2022-01-24 06:40 | NUR ---
Patient resting in no acute distress.Tolerating vent settings.Oral care done.Tolerating gt feeding. BM x1 during the shift.Kept clean and dry.Blood sugar monitored q 6hrs and coverage given per sliding scale.Turned and repositioned q 2 hrs off loading pressure points.
--- NOTE | 2022-01-24 07:30 | NUR ---
Received patient obtunded and intubated to vent. Tolerating prescribed vent settings.No s/s of acute distress observable at this time.Afib 59 .Afebrile blood pressure stable. Patient on GT feeding Nepro feeding rate 45ml/hr . Maintained HOB elevated.Anuric with HD cath at [facility] patent and flushed.NS infusing at TKO to LUCIO PICC line. Site intact. on first step mattress off loaded for skin protection.
[2022-01-24] MEDS: ACETYLCYSTEINE 10% SOLN 400 MG/4 ML VIAL HHN SCH ×2 (07:31→13:37)
[2022-01-24] MEDS: PANTOPRAZOLE 40 MG/PACK PACK GT SCH (11:18)
[2022-01-24] MEDS: ACIDOPHILUS/BULGARICUS 1 EACH TAB.CHEW GT SCH (11:19)
[2022-01-24] MEDS: ZINC SULFATE 220 MG CAPSULE GT SCH (11:19)
[2022-01-24] MEDS: ASCORBIC ACID 500 MG TABLET GT SCH (11:19)
[2022-01-24] MEDS: SEVELAMER CARBONATE 800 MG POWD.PACK GT SCH ×3 (11:19→17:22)
[2022-01-24] MEDS: MULTIVITAMINS,THERAGRAN 1 UDTAB TABLET GT SCH (11:19)
[2022-01-24] MEDS: PROSOURCE / PROSTAT (PYXIS) 30 ML UDC GT SCH (11:20)
--- NOTE | 2022-01-24 18:49 | NUR ---
RN CLOSING PT IN BED OBTUNDED AND RESPONSIVE TO TOUCH AND PAINFUL STIMULI. PT IS INTUBATED ON THE VENTILATOR BREATHING EVENLY AND UNLABORED NO S/S ACUTE RESPIRATORY DISTRESS. BEDSIDE MONITOR SHOWS VITAL ALL WNL. GT IN PLACE AND PATENT TUBE FEEDING RUNNING AT 45ML/H NO RESIDUALS ASPIRATED. HOB ELVATED TO 45 DEGREES BED LOCKED AND IN LOWEST POSITION.
--- NOTE | 2022-01-24 19:30 | NUR ---
LODGE OFFICER OPENING NOTES RECEIVED PATIENT IN BED, PT. ON ETT SIZE 8 CONNECTED TO VENT SETTINGS AC-16, TV- 500, FIO2-30%, PEEP- 5, SATING AT 98%. AFEBRILE, NO S/S OF DISTRESS NOTED. WITH LUCIO PICC LINE, PATENT, INTACT, FLUSHED WITH NS. NO S/S OF INFILTRATION NOTED. RIGHT IJ HD SITE WITH PIGTAIL. GTUBE IN PLACE RUNNING NEPHRO AT 45 ML/HR. SAFETY MEASURES PROVIDED, BED IN LOWEST POSITION, LOCKED. BED ALARM ON. CALL LIGHT WITH IN REACH. WILL CONTINUE TO MONITOR THROUGHOUT THE SHIFT.
[2022-01-24] MEDS: DIGOXIN 0.125 MG TABLET GT SCH (21:07)
[2022-01-25] VITALS (24 sets, daily range): BP systolic 93–144; BP diastolic 43–85
[2022-01-25] MEDS: ACETYLCYSTEINE 10% SOLN 400 MG/4 ML VIAL HHN SCH ×2 (00:20→09:05)
[2022-01-25] MEDS: ALBUTEROL FS 2.5 MG/3 ML VIAL.NEB NEB SCH ×4 (01:58→20:07)
[2022-01-25] MEDS: IPRATROPIUM NEB FS 0.5 MG/2.5 ML AMPUL.NEB NEB SCH ×4 (01:58→20:07)
[2022-01-25] MEDS: BLOOD SUGAR DIAGNOSTIC 1 EACH STRIP IN SCH ×3 (06:00→17:42)
[2022-01-25] MEDS: NEPRO 1,000 ML BOTTLE GT SCH (06:00)
[2022-01-25] MEDS: INSULIN REGULAR, HUMAN 100 UNIT/ML 3 ML VIAL SQ PRN (06:01)
[2022-01-25] MEDS: hydrALAZINE HCL 25 MG TABLET PO SCH ×3 (06:02→20:37)
--- NOTE | 2022-01-25 07:16 | NUR ---
MEAT SALES AND STORAGE MANAGER CLOSING NOTES PATIENT REMAINS IN BED, PT. ON ETT SIZE 8 CONNECTED TO VENT SETTINGS AC-16, TV- 500, FIO2-30%, PEEP- 5, SATING AT 98%. AFEBRILE, NO S/S OF DISTRESS NOTED. WITH LUCIO PICC LINE, PATENT, INTACT, FLUSHED WITH NS. NO S/S OF INFILTRATION NOTED. RIGHT IJ HD SITE WITH PIGTAIL. GTUBE IN PLACE RUNNING NEPHRO AT 45 ML/HR. ALL DUE MEDS GIVEN, KEPT DRY AND CLEAN, SAFETY MEASURES PROVIDED, BED IN LOWEST POSITION, LOCKED. BED ALARM ON. CALL LIGHT WITH IN REACH. WILL ENDORSE TO AM SHIFT NURSE FOR CONTINUITY OF CARE.
[2022-01-25] MEDS: SEVELAMER CARBONATE 800 MG POWD.PACK GT SCH ×3 (08:44→17:42)
[2022-01-25] MEDS: ASCORBIC ACID 500 MG TABLET GT SCH (08:44)
[2022-01-25] MEDS: MULTIVITAMINS,THERAGRAN 1 UDTAB TABLET GT SCH (08:44)
[2022-01-25] MEDS: ACIDOPHILUS/BULGARICUS 1 EACH TAB.CHEW GT SCH (08:44)
[2022-01-25] MEDS: PANTOPRAZOLE 40 MG/PACK PACK GT SCH (08:44)
[2022-01-25] MEDS: ZINC SULFATE 220 MG CAPSULE GT SCH (08:55)
[2022-01-25] MEDS: PROSOURCE / PROSTAT (PYXIS) 30 ML UDC GT SCH (11:37)
--- NOTE | 2022-01-25 19:30 | NUR ---
RN OPENING NOTES RECEIVED PATIENT IN BED, PT. ON ETT SIZE 8 CONNECTED TO VENT SETTINGS AC-16, TV- 500, FIO2-30%, PEEP- 5, SATING AT 98%. AFEBRILE, NO S/SX OF RESPI DISTRESS NOTED AT THIS TIME. WITH LUCIO PICC LINE, PATENT, INTACT, FLUSHED WITH NS. NO S/S OF INFILTRATION NOTED. RIGHT IJ HD SITE WITH PIGTAIL. GTUBE IN PLACE RUNNING NEPRO AT 45 ML/HR. ALL SAFETY MEASURES PROVIDED, BED IN LOWEST POSITION, LOCKED. BED ALARM ON. CALL LIGHT WITH IN REACH. WILL CONTINUE TO MONITOR THROUGHOUT THE SHIFT.
[2022-01-25] MEDS: DIGOXIN 0.125 MG TABLET GT SCH (21:24)
--- NOTE | 2022-01-25 21:25 | NUR ---
RN NOTE DIGOXIN ON HOLD; PT'S HR IN THE 50s. WILL CONTINUE TO MONITOR.
[2022-01-26] VITALS (45 sets, daily range): BP systolic 89–145; BP diastolic 39–113
[2022-01-26] MEDS: BLOOD SUGAR DIAGNOSTIC 1 EACH STRIP IN SCH ×4 (00:22→17:01)
[2022-01-26] MEDS: INSULIN REGULAR, HUMAN 100 UNIT/ML 3 ML VIAL SQ PRN ×3 (00:32→18:09)
[2022-01-26] MEDS: ALBUTEROL FS 2.5 MG/3 ML VIAL.NEB NEB SCH ×4 (01:39→20:03)
[2022-01-26] MEDS: IPRATROPIUM NEB FS 0.5 MG/2.5 ML AMPUL.NEB NEB SCH ×4 (01:39→20:03)
[2022-01-26] MEDS: IV NS 0.9% 250 ML IV PRN ×2 (01:55→10:58)
[2022-01-26] MEDS: hydrALAZINE HCL 25 MG TABLET PO SCH ×3 (04:59→21:17)
--- NOTE | 2022-01-26 07:40 | NUR ---
ICU/RN PT IS INTUBATED ,ON THE VENT AC MODE,FIO2-30%.SAT O2-100%.NOT SEDATED.HAS DEMENTIA.OPEN EYES ON PAIN STIMULATION .BEDBOUND -BASE LINE.V/S STABLE,AFEBRILE.RIGHT UPPER ARM ARM PICC LINE.RIGHT IJ -HD CATHETER.PT IS ANURIC.SACRAL AREA COVERED WITH DRESSING. AM LABS ORDERED.SUCTION PROVIDED.REPOSITION FOR COMFORT.
[2022-01-26] MEDS: SEVELAMER CARBONATE 800 MG POWD.PACK GT SCH ×3 (08:53→16:26)
[2022-01-26] MEDS: MULTIVITAMINS,THERAGRAN 1 UDTAB TABLET GT SCH (08:53)
[2022-01-26] MEDS: ASCORBIC ACID 500 MG TABLET GT SCH (08:53)
[2022-01-26] MEDS: ZINC SULFATE 220 MG CAPSULE GT SCH (08:53)
[2022-01-26] MEDS: ACIDOPHILUS/BULGARICUS 1 EACH TAB.CHEW GT SCH (08:53)
[2022-01-26] MEDS: PANTOPRAZOLE 40 MG/PACK PACK GT SCH (08:53)
[2022-01-26] MEDS: PROSOURCE / PROSTAT (PYXIS) 30 ML UDC GT SCH (08:54)
--- NOTE | 2022-01-26 09:00 | NUR ---
ICU/RN DUE MEDS ARE GIVEN ORDERED.PT HAS G-TUBE INFUSING WITH NEPRO AT 45 ML/HR.NO RESIDUAL NOTED.HD STARTED.HD NURSE AT BEDSIDE.
[2022-01-26 10:36] LABS: BASOPHILS % (AUTO) 0.3 % (0.0-2.0); EOSINOPHILS % (AUTO) 0.7 % (0.0-6.0); HEMATOCRIT 28 % (39-51); HEMOGLOBIN 9.2 g/dL (13.5-17.5); LYMPHOCYTES # (AUTO) 1.1 K/uL (0.8-4.8); LYMPHOCYTES % (AUTO) 9.8 % (20.0-44.0); MEAN CORPUSCULAR HGB CONC 33 g/dl (31.0-36.0); MEAN CORPUSCULAR VOLUME 86 fL (80-96); MONOCYTES # (AUTO) 0.7 K/uL (0.1-1.30); MONOCYTES % (AUTO) 5.8 % (2.0-12.0); NEUTROPHILS # (AUTO) 9.7 K/uL (1.8-8.9); NEUTROPHILS % (AUTO) 83.4 % (43.0-81.0); PLATELET COUNT (AUTO) 134 K/uL (150-450); RED BLOOD CELL COUNT(AUTO) 3.26 MIL/uL (4.5-6.0); WHITE BLOOD COUNT (AUTO) 11.6 K/uL (4.3-11.0)
[2022-01-26] MEDS: NEPRO 1,000 ML BOTTLE GT SCH (10:58)
[2022-01-26 11:10] LABS: CALCIUM, SERUM 10.6 mg/dL (8.5-10.1); CARBON DIOXIDE 29 mmol/L (21-32); CHLORIDE 98 mmol/L (98-107); CREATININE 2.1 mg/dL (0.6-1.3); GLUCOSE 162 mg/dL (74-106); POTASSIUM 3.3 mmol/L (3.5-5.1); SODIUM SERUM 134 mmol/L (136-145); UREA NITROGEN, BLOOD 51 mg/dL (7-18)
--- NOTE | 2022-01-26 13:39 | NUR ---
ICU/RN HD IS OVER .2 L OUTPUT. PT TOLERATED WELL.PT NEED TRACHEOSTOMY TUBE PLACEMENT.TALK TO THE SON ERIC.FAMILY AGREE.CONSENT SIGN OVER THE PHONE.SCHEDULED FOR Tuesday01/28/22 AM.
--- NOTE | 2022-01-26 17:20 | NUR ---
ICU/RN PT VOMIT.ZOFRAN 4MG IV PUSH GIVEN ORDERED.G-TUBE FEEDING HOLD FOR NOW.
--- NOTE | 2022-01-26 19:30 | NUR ---
RN/ICU-RECEIVED PT. FROM DAYSHIFT RN, OBTUNDED, EYES ARE CLOSED,GRIMACES TO PAIN, EXTREMITIES ARE STIFF. ON THE VENT PER ETT, ON AC MODE, SATS.-99%, EKG SR W/ BP-127/50, WILL CHECK GT RESIDUALS AND RESTART TF TOLERATED. AFEBRILE, NO S/S OF PAIN OR DISTRESS. Addendum: 01/26/22 at 2042 by ALCIRA AGARWAL RN PT. EKG ATRIAL FIB W/ CVR W/ OCCASIONAL UNIFOCAL PVCS, HR-68/MIN.
[2022-01-26] MEDS: DIGOXIN 0.125 MG TABLET GT SCH (22:25)
[2022-01-27] VITALS (24 sets, daily range): BP systolic 111–150; BP diastolic 50–88
[2022-01-27] MEDS: BLOOD SUGAR DIAGNOSTIC 1 EACH STRIP IN SCH ×5 (00:34→23:22)
[2022-01-27] MEDS: INSULIN REGULAR, HUMAN 100 UNIT/ML 3 ML VIAL SQ PRN ×4 (00:36→18:40)
[2022-01-27] MEDS: ALBUTEROL FS 2.5 MG/3 ML VIAL.NEB NEB SCH ×4 (01:59→19:49)
[2022-01-27] MEDS: IPRATROPIUM NEB FS 0.5 MG/2.5 ML AMPUL.NEB NEB SCH ×4 (01:59→19:49)
[2022-01-27 04:06] LABS: BASOPHILS % (AUTO) 0.3 % (0.0-2.0); EOSINOPHILS % (AUTO) 0.2 % (0.0-6.0); HEMATOCRIT 27 % (39-51); HEMOGLOBIN 8.7 g/dL (13.5-17.5); LYMPHOCYTES # (AUTO) 0.8 K/uL (0.8-4.8); LYMPHOCYTES % (AUTO) 6.9 % (20.0-44.0); MEAN CORPUSCULAR HGB CONC 33 g/dl (31.0-36.0); MEAN CORPUSCULAR VOLUME 86 fL (80-96); MONOCYTES # (AUTO) 0.7 K/uL (0.1-1.30); MONOCYTES % (AUTO) 6.1 % (2.0-12.0); NEUTROPHILS # (AUTO) 10.1 K/uL (1.8-8.9); NEUTROPHILS % (AUTO) 86.5 % (43.0-81.0); PLATELET COUNT (AUTO) 141 K/uL (150-450); RED BLOOD CELL COUNT(AUTO) 3.09 MIL/uL (4.5-6.0); WHITE BLOOD COUNT (AUTO) 11.6 K/uL (4.3-11.0)
[2022-01-27 04:35] LABS: CALCIUM, SERUM 10.1 mg/dL (8.5-10.1); CARBON DIOXIDE 22 mmol/L (21-32); CHLORIDE 98 mmol/L (98-107); CREATININE 2.5 mg/dL (0.6-1.3); GLUCOSE 167 mg/dL (74-106); MAGNESIUM 2.4 mg/dL (1.8-2.4); PHOSPHORUS 2.2 mg/dL (2.5-4.9); POTASSIUM 3.4 mmol/L (3.5-5.1); SODIUM SERUM 133 mmol/L (136-145); UREA NITROGEN, BLOOD 46 mg/dL (7-18)
[2022-01-27] MEDS: hydrALAZINE HCL 25 MG TABLET PO SCH ×3 (04:37→21:25)
--- NOTE | 2022-01-27 08:15 | NUR ---
BEDSIDE REPORT GIVEN BY CHARGE NURSE -DOMENICA FOR CONTINUITY OF CARE, GTF ON HOLD PER ENDORSEMENT; WITH RUNNING IV-NS TKO, WILL CONTINUE TO MONITOR.
--- NOTE | 2022-01-27 08:45 | NUR ---
DR. GARCIA AT THE UNIT SEEN PT. AND MD WAS MADE AWARE REGARDING GREENISH-BLACK LIQUID STOOL OF PT., WITH ORDER TO INSERT RECTAL TUBE; ALSO MADE MD AWARE THAT PER APURVAENTRY DRIVER OPERATORMANAGER STRATEGY & ACCOUNT ENDORSEMENT/ STATES "I NOTIFIED AND GOT ORDER FROM DR. MENDEZ INSTEAD OF DR. GARCIA REGARDING THE HEPARIN ORDER FROM FRAME GATE MORTISER OPERATOR." DR GARCIA STATES " THAT IS FINE." Addendum: 01/27/22 at 2019 by SHERINE ZEPEDA RN WRONG PATIENT/ENTRY ABOVE NOTES
[2022-01-27] MEDS: NEPRO 1,000 ML BOTTLE GT SCH (10:10)
[2022-01-27] MEDS: SEVELAMER CARBONATE 800 MG POWD.PACK GT SCH ×3 (10:13→18:33)
[2022-01-27] MEDS: PANTOPRAZOLE 40 MG/PACK PACK GT SCH (10:13)
[2022-01-27] MEDS: ZINC SULFATE 220 MG CAPSULE GT SCH (10:13)
[2022-01-27] MEDS: ACIDOPHILUS/BULGARICUS 1 EACH TAB.CHEW GT SCH (10:13)
[2022-01-27] MEDS: ASCORBIC ACID 500 MG TABLET GT SCH (10:13)
[2022-01-27] MEDS: MULTIVITAMINS,THERAGRAN 1 UDTAB TABLET GT SCH (10:13)
[2022-01-27] MEDS: PROSOURCE / PROSTAT (PYXIS) 30 ML UDC GT SCH (10:14)
[2022-01-27] MEDS: IV NS 0.9% 250 ML IV PRN (10:15)
[2022-01-27] MEDS ORDERED: POTASSIUM CHLORIDE 20 MEQ POWDER PACKET GT ONE ×2 (13:00→14:00)
[2022-01-27] MEDS ORDERED: NEUTRA PHOS 1 POWD.PACKET PO ONE (14:00)
[2022-01-27] MEDS ORDERED: ANESTHESIA TRAY IN PYXIS 1 EA TRAY MC ONE (14:55)
--- NOTE | 2022-01-27 20:00 | NUR ---
Received patient obtunded on full vent support as prescribed.No acute respiratory distress noted. Afib controlled.GT feeding infusing with small residual noted.Maintained HOB elevated.Anuric.On HD with HD Cath to RIJ intact.Incontinent of stool soft brown.kept clean and dry.Bed bath rendered. Complete linens changed.With sacral DTI mepilex changed.Turned and repositioned to comfort.
[2022-01-27] MEDS: DIGOXIN 0.125 MG TABLET GT SCH (22:28)
--- NOTE | 2022-01-27 22:30 | NUR ---
Patient backing up the vent.Secretions suctioned but still vent alarming.Called RT and checked patient.Stat portable CXR done to evaluate ET tube placement.Breathing treatment given by RT. Patient more relax.Incontinent of stool.Kept clean and dry.Turned and repositioned.Continue monitoring.
--- NOTE | 2022-01-27 23:59 | NUR ---
Patient for Trach placement in am.NPO post MN observed.Consent signed.FSBS 159.no coverage given.
[2022-01-28] VITALS (25 sets, daily range): BP systolic 100–168; BP diastolic 46–81
[2022-01-28] MEDS: IPRATROPIUM NEB FS 0.5 MG/2.5 ML AMPUL.NEB NEB SCH ×4 (01:06→19:47)
[2022-01-28] MEDS: ALBUTEROL FS 2.5 MG/3 ML VIAL.NEB NEB SCH ×4 (01:06→19:47)
[2022-01-28 04:10] LABS: BASOPHILS % (AUTO) 0.3 % (0.0-2.0); EOSINOPHILS % (AUTO) 0.3 % (0.0-6.0); HEMATOCRIT 25 % (39-51); HEMOGLOBIN 8.1 g/dL (13.5-17.5); LYMPHOCYTES % (AUTO) 9.1 % (20.0-44.0); MEAN CORPUSCULAR HGB CONC 33 g/dl (31.0-36.0); MEAN CORPUSCULAR VOLUME 86 fL (80-96); MONOCYTES # (AUTO) 0.7 K/uL (0.1-1.30); MONOCYTES % (AUTO) 6.3 % (2.0-12.0); NEUTROPHILS # (AUTO) 9.3 K/uL (1.8-8.9); PLATELET COUNT (AUTO) 134 K/uL (150-450); RED BLOOD CELL COUNT(AUTO) 2.88 MIL/uL (4.5-6.0)
[2022-01-28 04:23] LABS: CALCIUM, SERUM 9.8 mg/dL (8.5-10.1); CARBON DIOXIDE 24 mmol/L (21-32); CHLORIDE 100 mmol/L (98-107); CREATININE 3.2 mg/dL (0.6-1.3); GLUCOSE 165 mg/dL (74-106); MAGNESIUM 2.8 mg/dL (1.8-2.4); PHOSPHORUS 4.3 mg/dL (2.5-4.9); POTASSIUM 4.2 mmol/L (3.5-5.1); SODIUM SERUM 134 mmol/L (136-145); UREA NITROGEN, BLOOD 72 mg/dL (7-18)
[2022-01-28] MEDS: hydrALAZINE HCL 25 MG TABLET PO SCH ×3 (05:08→21:18)
[2022-01-28] MEDS: BLOOD SUGAR DIAGNOSTIC 1 EACH STRIP IN SCH ×3 (05:31→17:22)
--- NOTE | 2022-01-28 06:58 | NUR ---
Patient remains obtunded.On full vent support.Plan :For Trach placement today.No distress noted. AM care done.Oral care done.BM X1 soft brown stool.Kept clean and dry.Turned and repositioned.
[2022-01-28] MEDS: SEVELAMER CARBONATE 800 MG POWD.PACK GT SCH ×3 (09:00→17:00)
[2022-01-28] MEDS: ASCORBIC ACID 500 MG TABLET GT SCH (09:00)
[2022-01-28] MEDS: MULTIVITAMINS,THERAGRAN 1 UDTAB TABLET GT SCH (09:00)
[2022-01-28] MEDS: PROSOURCE / PROSTAT (PYXIS) 30 ML UDC GT SCH (09:00)
[2022-01-28] MEDS: ZINC SULFATE 220 MG CAPSULE GT SCH (09:00)
[2022-01-28] MEDS: ACIDOPHILUS/BULGARICUS 1 EACH TAB.CHEW GT SCH (09:00)
[2022-01-28] MEDS: PANTOPRAZOLE 40 MG/PACK PACK GT SCH (09:00)
[2022-01-28] MEDS ORDERED: LIDOCAINE HCL/MPF 1% 30 ML VIAL IJ ONE (09:36)
[2022-01-28] MEDS ORDERED: BUPIVACAINE 0.5 % PF 150 MG/30 ML VIAL ONE (09:36)
[2022-01-28] MEDS ORDERED: IOHEXOL 0 ML IV ONE (09:37)
[2022-01-28] MEDS ORDERED: HEPARIN SODIUM, PORCINE 1,000 UNIT/ML VIAL ONE (09:37)
--- NOTE | 2022-01-28 12:37 | NUR ---
Picked up in ICU and transported by OR team for scheduled tracheostomy and permacath placement to surgery.
--- NOTE | 2022-01-28 13:48 | NUR ---
Back to ICU: S/P Tracheostomy Quinotn #[id number] and Permacath placement to Right Subclavian. Cont Vent Managment. follow up post op orders
[2022-01-28] MEDS: INSULIN REGULAR, HUMAN 100 UNIT/ML 3 ML VIAL SQ PRN (17:45)
--- NOTE | 2022-01-28 19:40 | NUR ---
MACHINE CLOTHING WORKER. INITIAL ASSESSMENT. RECEIVED THE PT REST IN BED. TRACH TO VENT. LAY#8,RATE IS 16, TV 500,FIO2 30%,PEEP 5. SAT 98%/ NO ACUTE DISTRESS NOTED. SCALER SHOWING A FIB CONTROLLED. GT INTACT. HD CATH RT SUBCLAVIAN. HOB ELEVATED. WILL CONTINUE TO MONITOR VITALS.
[2022-01-28] MEDS: CEFAZOLIN 2 GM in IV D5W 100 ML IV SCH (21:17)
[2022-01-28] MEDS: NEPRO 1,000 ML BOTTLE GT SCH (21:29)
[2022-01-28] MEDS: DIGOXIN 0.125 MG TABLET GT SCH (22:00)
[2022-01-29] VITALS (48 sets, daily range): BP systolic 94–151; BP diastolic 41–85
[2022-01-29] MEDS: BLOOD SUGAR DIAGNOSTIC 1 EACH STRIP IN SCH ×4 (01:05→17:05)
[2022-01-29] MEDS: ALBUTEROL FS 2.5 MG/3 ML VIAL.NEB NEB SCH ×4 (01:07→20:36)
[2022-01-29] MEDS: IPRATROPIUM NEB FS 0.5 MG/2.5 ML AMPUL.NEB NEB SCH ×4 (01:07→20:36)
--- NOTE | 2022-01-29 02:29 | NUR ---
agricultural equipment design engineer. am care given. remaining same vent settings tolerated well. sat 98%. no acute distress noted. school lunch monitor showing a fib.hob elevated. gt intact. gt feed nepro resumed, iv rt upper arm picc line. tko on. turn and reposition q2h. sacral wound picture taken. will continue to monitor vitals.
[2022-01-29 05:56] LABS: BASOPHILS % (AUTO) 0.2 % (0.0-2.0); EOSINOPHILS % (AUTO) 0.5 % (0.0-6.0); HEMATOCRIT 29 % (39-51); HEMOGLOBIN 9.3 g/dL (13.5-17.5); LYMPHOCYTES # (AUTO) 0.8 K/uL (0.8-4.8); LYMPHOCYTES % (AUTO) 5.9 % (20.0-44.0); MEAN CORPUSCULAR HGB CONC 33 g/dl (31.0-36.0); MEAN CORPUSCULAR VOLUME 86 fL (80-96); MONOCYTES # (AUTO) 0.8 K/uL (0.1-1.30); MONOCYTES % (AUTO) 5.9 % (2.0-12.0); NEUTROPHILS # (AUTO) 11.6 K/uL (1.8-8.9); NEUTROPHILS % (AUTO) 87.5 % (43.0-81.0); PLATELET COUNT (AUTO) 179 K/uL (150-450); RED BLOOD CELL COUNT(AUTO) 3.31 MIL/uL (4.5-6.0); WHITE BLOOD COUNT (AUTO) 13.2 K/uL (4.3-11.0)
[2022-01-29] MEDS: CEFAZOLIN 2 GM in IV D5W 100 ML IV SCH ×2 (06:16→12:40)
[2022-01-29] MEDS: hydrALAZINE HCL 25 MG TABLET PO SCH (06:17)
[2022-01-29] MEDS: INSULIN REGULAR, HUMAN 100 UNIT/ML 3 ML VIAL SQ PRN ×3 (06:25→17:05)
[2022-01-29 06:31] LABS: CALCIUM, SERUM 9.3 mg/dL (8.5-10.1); CARBON DIOXIDE 29 mmol/L (21-32); CHLORIDE 99 mmol/L (98-107); CREATININE 2.4 mg/dL (0.6-1.3); GLUCOSE 153 mg/dL (74-106); MAGNESIUM 2.3 mg/dL (1.8-2.4); PHOSPHORUS 3.1 mg/dL (2.5-4.9); POTASSIUM 3.6 mmol/L (3.5-5.1); SODIUM SERUM 138 mmol/L (136-145); UREA NITROGEN, BLOOD 40 mg/dL (7-18)
[2022-01-29] MEDS: IV NS 0.9% 250 ML IV PRN (06:44)
--- NOTE | 2022-01-29 07:00 | NUR ---
RN NOTES RECEIVED PT ON BED VENT/TRACH DEPENDENT, TOLERAING VENT SETTING WELL, O2 SAT WNL, ON TELE A.FIB HR IN 60'S, TF AT 30CC/HR RUNNING VIA PEG TUBE , NO RESIDUAL NOTED, IV SITE CDI, SR UP X3, CALL LIGHT WITHIN EASY REACH, BED LOCKED AND IN LOWEST POSITION , CONTINUE TO MONITOR.
[2022-01-29] MEDS: ZINC SULFATE 220 MG CAPSULE GT SCH (08:27)
[2022-01-29] MEDS: PANTOPRAZOLE 40 MG/PACK PACK GT SCH (08:27)
[2022-01-29] MEDS: ASCORBIC ACID 500 MG TABLET GT SCH (08:27)
[2022-01-29] MEDS: ACIDOPHILUS/BULGARICUS 1 EACH TAB.CHEW GT SCH (08:27)
[2022-01-29] MEDS: MULTIVITAMINS,THERAGRAN 1 UDTAB TABLET GT SCH (08:27)
[2022-01-29] MEDS: SEVELAMER CARBONATE 800 MG POWD.PACK GT SCH ×3 (08:27→16:36)
[2022-01-29] MEDS: PROSOURCE / PROSTAT (PYXIS) 30 ML UDC GT SCH (08:29)
[2022-01-29] MEDS: APIXABAN 2.5 MG TABLET GT SCH ×2 (09:04→16:37)
[2022-01-29] MEDS: hydrALAZINE HCL 25 MG TABLET GT SCH ×2 (12:40→20:33)
[2022-01-29] MEDS: THERAHONEY GEL 1.5 OZ TUBE TP SCH (15:23)
--- NOTE | 2022-01-29 17:58 | NUR ---
RN NOTES PT TRANSFERRED TO ROOM 102 TELE STATUS VIA ACLS PROTOCAL IN STABLE CONDITION, REPORT GIVEN TO NICOLAS SEGOVIA FOR CONTINUITY OF CARE .
--- NOTE | 2022-01-29 18:03 | NUR ---
rn note icu transfer note received report from Lindsey. patient is on mechanical ventilatory with ordered settings tolerating well.pt has picc line. patient has gtube, intact and patent. all safety measures in place. bed alarm on. bed locked at lowest position. side rails up x2.
--- NOTE | 2022-01-29 19:30 | NUR ---
WIRE INSPECTOR OPENING NOTES RECEIVED PATIENT LAYING IN BED ASLEEP. OBTUNDED. BREATHING EVEN AND NON-LABORED. ON MECHANICAL VENT TOLERATING CURRENT SETTINGS WELL. NOT IN APPARENT DISTRESS. NO PAIN OR DISCOMFORT NOTED. ON TELE MONITOR READING A-FIB AT 71 BPM. HAS RIGHT UPPER ARM PICC LINE AND SALINE LOCKED. NO S/S OF INFILTRATION NOTED. ON NEPRO G-TUBE FEEDING RUNNING AT 45 ML/HR. ON AMADO MATTRESS, HOB ELEVATED. SAFETY PRECAUTIONS IN PLACE: BED LOW AND LOCKED, SIDE RAILS UP X2, CALL LIGHT WITHIN REACH. WILL CONTINUE POC. Addendum: 01/29/22 at 2115 by August SAMINA SEGOVIA TELE MONITOR READING SINUS RHYTHM AT 71 BPM
--- NOTE | 2022-01-29 20:24 | NUR ---
rn closing note pt with eyes closed. pt hob elevated. pt on mechanical ventilator with ordered tolerated settings. pt has picc line. intact, patent. pt has gtube feeding. running gtube feeding at prescribed rate. pt on tele monitor afib/sinus rhytm. all safety measures in place. bed locked at lowest position.side rails up x2. bed alarm on. endorsed to network operations project manager rn for continuity of care
[2022-01-29] MEDS: DIGOXIN 0.125 MG TABLET GT SCH (21:16)
[2022-01-30] VITALS: BP 126/63
[2022-01-30] MEDS: BLOOD SUGAR DIAGNOSTIC 1 EACH STRIP IN SCH ×5 (00:26→18:21)
[2022-01-30] MEDS: INSULIN REGULAR, HUMAN 100 UNIT/ML 3 ML VIAL SQ PRN ×3 (00:28→18:21)
[2022-01-30] MEDS: ALBUTEROL FS 2.5 MG/3 ML VIAL.NEB NEB SCH ×4 (00:58→19:56)
[2022-01-30] MEDS: IPRATROPIUM NEB FS 0.5 MG/2.5 ML AMPUL.NEB NEB SCH ×4 (00:58→19:56)
[2022-01-30] MEDS: ACETAMINOPHEN 325 MG TABLET MC PRN (03:19)
--- NOTE | 2022-01-30 03:20 | NUR ---
ROPEWALK ROPE MAKER NOTES PATIENT NOTED WITH MILD FEVER OF 100F. PRN TYLENOL GIVEN. WILL CONTINUE TO MONITOR. Addendum: 01/30/22 at 0432 by August SAMINA SEGOVIA RETAKE TEMPERATURE, 98.7F
[2022-01-30 04:00] VITALS: BP 100/62
[2022-01-30] MEDS: hydrALAZINE HCL 25 MG TABLET GT SCH ×3 (04:49→21:00)
[2022-01-30 07:10] LABS: BASOPHILS % (AUTO) 0.3 % (0.0-2.0); EOSINOPHILS % (AUTO) 1.8 % (0.0-6.0); HEMATOCRIT 28 % (39-51); HEMOGLOBIN 9.2 g/dL (13.5-17.5); LYMPHOCYTES # (AUTO) 0.7 K/uL (0.8-4.8); LYMPHOCYTES % (AUTO) 4.3 % (20.0-44.0); MEAN CORPUSCULAR HGB CONC 33 g/dl (31.0-36.0); MEAN CORPUSCULAR VOLUME 87 fL (80-96); MONOCYTES # (AUTO) 0.8 K/uL (0.1-1.30); MONOCYTES % (AUTO) 5.2 % (2.0-12.0); NEUTROPHILS # (AUTO) 14.2 K/uL (1.8-8.9); NEUTROPHILS % (AUTO) 88.4 % (43.0-81.0); PLATELET COUNT (AUTO) 170 K/uL (150-450); RED BLOOD CELL COUNT(AUTO) 3.23 MIL/uL (4.5-6.0)
--- NOTE | 2022-01-30 07:30 | NUR ---
CROTCH BREAKER OPENING NOTE PATIENT RECEIVED IN BED WITH EYES CLOSED, AND APPEARED SLEEPING. PATIENT OBSERVED TO BE OBTUNDED, NONVERBAL AND UNABLE TO MAKE NEEDS KNOWN. REMAINS ON MECHANICAL VENT AND TOLERATING CURRENT VENT SETTINGS WELL. TUBE FEEDING REMAINS INTACT AND FLOWING CONTINUOUSLY @ 45ML/HR. TOLERATING WELL. PICC LINE TO LUCIO INTACT AND FLUSHING WELL WITH NO S/SX OF TRAUMA/INFILTRATION. WILL CONT TO MONITOR.
[2022-01-30 07:48] LABS: CALCIUM, SERUM 9.1 mg/dL (8.5-10.1); CARBON DIOXIDE 25 mmol/L (21-32); CHLORIDE 97 mmol/L (98-107); CREATININE 3.3 mg/dL (0.6-1.3); GLUCOSE 191 mg/dL (74-106); MAGNESIUM 2.7 mg/dL (1.8-2.4); PHOSPHORUS 4.2 mg/dL (2.5-4.9); POTASSIUM 3.7 mmol/L (3.5-5.1); SODIUM SERUM 133 mmol/L (136-145); UREA NITROGEN, BLOOD 64 mg/dL (7-18)
[2022-01-30 08:00] VITALS: BP 121/55
[2022-01-30] MEDS: APIXABAN 2.5 MG TABLET GT SCH ×2 (10:24→18:20)
[2022-01-30] MEDS: ACIDOPHILUS/BULGARICUS 1 EACH TAB.CHEW GT SCH (10:29)
[2022-01-30] MEDS: MULTIVITAMINS,THERAGRAN 1 UDTAB TABLET GT SCH (10:29)
[2022-01-30] MEDS: ASCORBIC ACID 500 MG TABLET GT SCH (10:30)
[2022-01-30] MEDS: SEVELAMER CARBONATE 800 MG POWD.PACK GT SCH ×3 (10:30→18:19)
[2022-01-30] MEDS: PANTOPRAZOLE 40 MG/PACK PACK GT SCH (10:30)
[2022-01-30] MEDS: ZINC SULFATE 220 MG CAPSULE GT SCH (10:30)
[2022-01-30] MEDS: THERAHONEY GEL 1.5 OZ TUBE TP SCH (10:33)
[2022-01-30] MEDS: PROSOURCE / PROSTAT (PYXIS) 30 ML UDC GT SCH (10:35)
[2022-01-30 12:00] VITALS: BP 131/64
[2022-01-30] MEDS ORDERED: VANCOMYCIN 1 GM in IV D5W 250 ML IV PRN (12:00)
[2022-01-30 16:00] VITALS: BP 104/59
[2022-01-30] MEDS ORDERED: VANCOMYCIN 1 GM in IV D5W 250 ML IV ONE (17:00)
[2022-01-30] MEDS: MEROPENEM 500 MG in IV NS 0.9% 50 ML IV SCH (18:23)
--- NOTE | 2022-01-30 19:11 | NUR ---
REGIONAL PRODUCTION MANAGER CLOSING NOTE PATIENT REMAINED IN BED WITH EYES CLOSED, AND OBSERVED TO BE OBTUNDED, NONVERBAL AND UNABLE TO MAKE NEEDS KNOWN. REMAINS ON MECHANICAL VENT AND TOLERATING CURRENT VENT SETTINGS WELL. TUBE FEEDING REMAINS INTACT AND FLOWING CONTINUOUSLY @ 45ML/HR. TOLERATING WELL WITH INTAKE OF 540ML. PICC LINE TO LUCIO INTACT AND FLUSHING WELL WITH NO S/SX OF TRAUMA/INFILTRATION. HD COMPLETED AT BED SIDE WITH 2.5L OF FLUID TAKEN OFF PATIENT. PERMA-CATH TO RU CHEST INTACT AND FREE OF BLEEDING OR TRAUMA. NO S/SX OF FEVER ON SHIFT. REDNESS TO PATIENT NECK AND CHEST AREA REPORTED ON SHIFT. PHYSICIAN MADE AWARE. WILL CONT TO MONITOR.
--- NOTE | 2022-01-30 19:30 | NUR ---
RN NOTES RECEIVED REPORT FROM MORNING RN. PATIENT IN BED OBTUNDED. ON TRACH CONNECTED TO MV WITH PRESCRIBED SETTINGS. WITH GT PATENT CONNECTED TO CONTINUOS FEEDING NEPHRO @ 45ML/HR WITH IV ACCESS AT [facility] PICC LINE, R CW PERMA CATH INTACT NO BLEEDING NOTED. ALL SAFETY MEASURES IN PLACE AT ALL TIMES. HOB ELEVATED. CALL LIGHT WITHIN REACH. HOB ELEVATED. WILL CLOSELY MONITOR THE PATIENT
[2022-01-30 20:00] VITALS: BP 104/53
[2022-01-30] MEDS: DIGOXIN 0.125 MG TABLET GT SCH (21:11)
[2022-01-31] VITALS: BP 95/45
[2022-01-31] MEDS: BLOOD SUGAR DIAGNOSTIC 1 EACH STRIP IN SCH ×4 (00:15→18:32)
[2022-01-31] MEDS: INSULIN REGULAR, HUMAN 100 UNIT/ML 3 ML VIAL SQ PRN ×4 (00:17→18:34)
[2022-01-31] MEDS: ALBUTEROL FS 2.5 MG/3 ML VIAL.NEB NEB SCH ×4 (01:41→19:30)
[2022-01-31] MEDS: IPRATROPIUM NEB FS 0.5 MG/2.5 ML AMPUL.NEB NEB SCH ×4 (01:41→19:30)
[2022-01-31 04:00] VITALS: BP 114/83
[2022-01-31] MEDS: hydrALAZINE HCL 25 MG TABLET GT SCH ×3 (05:32→22:34)
[2022-01-31] MEDS: MEROPENEM 500 MG in IV NS 0.9% 50 ML IV SCH ×2 (05:33→18:01)
--- NOTE | 2022-01-31 06:45 | NUR ---
ELECTRONIC MUSICAL INSTRUMENT REPAIRER CLOSING NOTES PATIENT LAYING IN BED WITH EYES CLOSED. FACIAL GRIMACING NOTED ON DEEP PAIN. TOLERATING MECHANICAL VENT SETTINGS WELL. NO RESPIRATORY DISTRESS NOTED. AFEBRILE. NO PAIN NOTED. ON TELE MONITOR READING SINUS RHYTHM AT 75 BPM. HAS RIGHT UPPER ARM PICC LINE WITH NS RUNNING TKO. INTACT, PATENT AND FLUSHING. G-TUBE FEEDING TOLERATED WELL, NO RESIDUAL NOTED. ALL DUE MEDS GIVEN AND NEEDS ATTENDED. WOUND AND SKIN CARE RENDERED. OFFLOAD BUTTOCKS AND REPOSITION Q2H. KEPT HOB ELEVATED AT ALL TIMES. SAFETY PRECAUTIONS MAINTAINED. WILL ENDORSE TO NEXT SHIFT FOR MARTA.
[2022-01-31 07:28] LABS: BASOPHILS % (AUTO) 0.2 % (0.0-2.0); EOSINOPHILS % (AUTO) 3.2 % (0.0-6.0); HEMATOCRIT 30 % (39-51); HEMOGLOBIN 9.7 g/dL (13.5-17.5); LYMPHOCYTES # (AUTO) 0.8 K/uL (0.8-4.8); MEAN CORPUSCULAR HGB CONC 32 g/dl (31.0-36.0); MEAN CORPUSCULAR VOLUME 87 fL (80-96); MONOCYTES # (AUTO) 0.8 K/uL (0.1-1.30); MONOCYTES % (AUTO) 6.1 % (2.0-12.0); NEUTROPHILS # (AUTO) 11.5 K/uL (1.8-8.9); NEUTROPHILS % (AUTO) 84.5 % (43.0-81.0); PLATELET COUNT (AUTO) 174 K/uL (150-450); RED BLOOD CELL COUNT(AUTO) 3.46 MIL/uL (4.5-6.0); WHITE BLOOD COUNT (AUTO) 13.6 K/uL (4.3-11.0)
[2022-01-31 07:31] LABS: CALCIUM, SERUM 11.2 mg/dL (8.5-10.1); CARBON DIOXIDE 24 mmol/L (21-32); CHLORIDE 98 mmol/L (98-107); CREATININE 2.5 mg/dL (0.6-1.3); GLUCOSE 214 mg/dL (74-106); MAGNESIUM 2.5 mg/dL (1.8-2.4); POTASSIUM 4.1 mmol/L (3.5-5.1); SODIUM SERUM 132 mmol/L (136-145); UREA NITROGEN, BLOOD 42 mg/dL (7-18)
[2022-01-31 08:00] VITALS: BP 103/60
--- NOTE | 2022-01-31 08:40 | NUR ---
STEREOPLOTTER OPERATOR OPENING NOTE PT IN BED WITH EYES CLOSED. PT ON MECHANICAL VENTILATOR WITH ORDERED SETTINGS TOLERATING WELL. PT RESPONDS TO PAINFUL STIMULI. NO S/S OF PAIN OR DISCOMFORT. PT ON TELE MONITOR SINUS RHYTM 71. PT HAS R UA PICC LINE. GTUBE IN PLACE, INTACT. NO RESIDUAL VOLUME NOTED. HOB ELEVATED AT ALL TIMES. ALL SAFETY MEASURES IN PLACE. CALL LIGHT WITHIN REACH. BED LOCKED AT LOWEST POSITION. SIDE RAILS UP X2. BED ALARM ON
[2022-01-31] MEDS: ACIDOPHILUS/BULGARICUS 1 EACH TAB.CHEW GT SCH (09:48)
[2022-01-31] MEDS: ASCORBIC ACID 500 MG TABLET GT SCH (09:48)
[2022-01-31] MEDS: ZINC SULFATE 220 MG CAPSULE GT SCH (09:48)
[2022-01-31] MEDS: PANTOPRAZOLE 40 MG/PACK PACK GT SCH (09:48)
[2022-01-31] MEDS: MULTIVITAMINS,THERAGRAN 1 UDTAB TABLET GT SCH (09:48)
[2022-01-31] MEDS: APIXABAN 2.5 MG TABLET GT SCH ×2 (09:49→16:40)
[2022-01-31] MEDS: PROSOURCE / PROSTAT (PYXIS) 30 ML UDC GT SCH (09:51)
--- NOTE | 2022-01-31 10:00 | NUR ---
rn note notified esmer candelaria that pt has localized rash/redness around ekg electrode placement. and has redness around upper chest and near armpit. also right picc line. one port is not working notfiied esmer candelaria. bari aware and acknowledged, and put new orders.
[2022-01-31] MEDS: SEVELAMER CARBONATE 800 MG POWD.PACK GT SCH ×3 (10:24→16:39)
[2022-01-31] MEDS: THERAHONEY GEL 1.5 OZ TUBE TP SCH (10:35)
[2022-01-31] MEDS: ACETAMINOPHEN 325 MG TABLET MC PRN (10:52)
--- NOTE | 2022-01-31 11:47 | NUR ---
RN NOTE notified dr. esmer candelaria that pt might be allergic to proplene glycol from ekg electrodes. asked if pt can be downgraded to med surg status
[2022-01-31 12:00] VITALS: BP 122/40
--- NOTE | 2022-01-31 12:00 | NUR ---
RN NOTE esmer candelaria said ok to downgrade to med surg status.
--- NOTE | 2022-01-31 12:00 | NUR ---
rn note notified nursing harvest crew supervisor that esmer candelaria put order to dc picc line, and if midline can be ordered. bari said okay to place midline. midline order and inserted on left upper arm midline.
[2022-01-31] MEDS: NEPRO 1,000 ML BOTTLE GT SCH (13:43)
--- NOTE | 2022-01-31 14:00 | NUR ---
rn note called office to report possible bleeding from site, spoke with business intelligence consultant doctor to put pressure on site, apply surgasel and sandbag
[2022-01-31 16:00] VITALS: BP 130/63
[2022-01-31] MEDS ORDERED: KETOCONAZOLE 2% CREAM 15 GM TUBE TP SCH (17:00)
--- NOTE | 2022-01-31 19:28 | NUR ---
CHIEF AIRPORT GUIDE CLOSING NOTE PT IN BED WITH EYES CLOSED. PT ON MECHANICAL VENTILATOR WITH ORDERED SETTINGS TOLERATING WELL. PT RESPONDS TO PAINFUL STIMULI. NO S/S OF PAIN OR DISCOMFORT. PT ON TELE MONITOR SINUS RHYTM 71. PT HAS R UA PICC LINE. PT HAS L UPPER ARM MIDLINE. INTACT AND PATENT. GTUBE IN PLACE, INTACT. NO RESIDUAL VOLUME NOTED. HOB ELEVATED AT ALL TIMES. ALL SAFETY MEASURES IN PLACE. CALL LIGHT WITHIN REACH. BED LOCKED AT LOWEST POSITION. SIDE RAILS UP X2. BED ALARM ON
--- NOTE | 2022-01-31 19:29 | NUR ---
AUTO DEALERSHIP PORTER CLOSING NOTE PT IN BED WITH EYES CLOSED. PT ON MECHANICAL VENTILATOR WITH ORDERED SETTINGS TOLERATING WELL. PT RESPONDS TO PAINFUL STIMULI. NO S/S OF PAIN OR DISCOMFORT. PT MED SURG STATUS CURRENTLY DUE TO LOCALIZED RASH NEAR EKG ELECTRODES PLACEMENT. PT HAS REDNESS NEAR NECK, ARMPIT AND UPPER BACK. PT HAS R PERMA CATH. PT HAS R UA PICC LINE. PT HAS L UPPER ARM MIDLINE. INTACT AND PATENT.GTUBE IN PLACE, INTACT. NO RESIDUAL VOLUME NOTED. HOB ELEVATED AT ALL TIMES. ALL SAFETY MEASURES IN PLACE. BED LOCKED AT LOWEST POSITION. SIDE RAILS UP X2. BED ALARM ON
--- NOTE | 2022-01-31 19:35 | NUR ---
RECYCLING PROGRAM MANAGER OPENING NOTES RECEIVED PATIENT IN BED, OBTUNDED, ON MECHANICAL VENT SETTINGS TOLERATING WELL. NO RESPIRATORY DISTRESS NOTED. AFEBRILE. NO PAIN NOTED. HAS RIGHT UPPER ARM PICC LINE AND LAISHA ML WITH NS RUNNING TKO. INTACT, PATENT AND FLUSHING. G-TUBE FEEDING OF NEPHRO AT 45 ML/HR TOLERATED WELL, NO RESIDUAL NOTED. OFFLOAD BUTTOCKS AND REPOSITION Q2H. KEPT HOB ELEVATED AT ALL TIMES. SAFETY PRECAUTIONS MAINTAINED. BED IN LOWEST AND LOCKED POSITION, PT MONITOR BOX AT BEDSIDE PER AM SHIFT PT HAS ALLERGIC REACTION TO EKG LEADS; MD AWARE, WILL CONTINUE TO MONITOR THROUGHOUT THE SHIFT.
[2022-01-31 20:00] VITALS: BP 142/72
[2022-01-31] MEDS: DIGOXIN 0.125 MG TABLET GT SCH (22:33)
[2022-02-01] VITALS: BP 147/60
[2022-02-01] MEDS: BLOOD SUGAR DIAGNOSTIC 1 EACH STRIP IN SCH ×4 (00:53→17:11)
[2022-02-01] MEDS: INSULIN REGULAR, HUMAN 100 UNIT/ML 3 ML VIAL SQ PRN ×5 (00:55→23:49)
[2022-02-01] MEDS: IPRATROPIUM NEB FS 0.5 MG/2.5 ML AMPUL.NEB NEB SCH ×4 (01:27→19:51)
[2022-02-01] MEDS: ALBUTEROL FS 2.5 MG/3 ML VIAL.NEB NEB SCH ×4 (01:27→19:51)
[2022-02-01 04:00] VITALS: BP 147/95
[2022-02-01] MEDS: hydrALAZINE HCL 25 MG TABLET GT SCH ×3 (05:30→22:10)
[2022-02-01] MEDS: MEROPENEM 500 MG in IV NS 0.9% 50 ML IV SCH ×2 (05:32→17:31)
[2022-02-01] MEDS ORDERED: SILVER NITRATE APPLICATOR 1 EA BOX TP PRN (06:00)
[2022-02-01] MEDS ORDERED: LIDOCAINE 1%-EPI 1:100,000 20 ML VIAL TP ONE (06:00)
--- NOTE | 2022-02-01 06:46 | NUR ---
INTERACTIVE GRAPHIC DESIGNER CLOSING NOTES PATIENT REMAINS IN BED, OBTUNDED, ON MECHANICAL VENT SETTINGS TOLERATING WELL. NO RESPIRATORY DISTRESS NOTED. AFEBRILE. NO PAIN NOTED. HAS RIGHT UPPER ARM PICC LINE AND LAISHA ML WITH NS RUNNING TKO. INTACT, PATENT AND FLUSHING. G-TUBE FEEDING IN PLACE RUNNING NEPHRO AT 45 ML/HR TOLERATED WELL, NO RESIDUAL NOTED. OFFLOAD BUTTOCKS AND REPOSITION Q2H. KEPT HOB ELEVATED AT ALL TIMES. ALL DUE MEDS GIVEN, KEPT DRY AND CLEAN, SAFETY PRECAUTIONS MAINTAINED. BED IN LOWEST AND LOCKED POSITION, WILL ENDORSE TO AM SHIFT NURSE FOR CONTINUITY OF CARE.
[2022-02-01 07:07] LABS: BASOPHILS % (AUTO) 0.1 % (0.0-2.0); EOSINOPHILS % (AUTO) 4.7 % (0.0-6.0); HEMATOCRIT 29 % (39-51); HEMOGLOBIN 9.5 g/dL (13.5-17.5); LYMPHOCYTES # (AUTO) 0.8 K/uL (0.8-4.8); LYMPHOCYTES % (AUTO) 6.6 % (20.0-44.0); MEAN CORPUSCULAR HGB CONC 33 g/dl (31.0-36.0); MEAN CORPUSCULAR VOLUME 87 fL (80-96); MONOCYTES # (AUTO) 0.7 K/uL (0.1-1.30); MONOCYTES % (AUTO) 5.9 % (2.0-12.0); NEUTROPHILS # (AUTO) 10.2 K/uL (1.8-8.9); NEUTROPHILS % (AUTO) 82.7 % (43.0-81.0); PLATELET COUNT (AUTO) 171 K/uL (150-450); RED BLOOD CELL COUNT(AUTO) 3.35 MIL/uL (4.5-6.0); WHITE BLOOD COUNT (AUTO) 12.3 K/uL (4.3-11.0)
--- NOTE | 2022-02-01 07:30 | NUR ---
SHARE HOLDER AN NOTES RECEIVED PATIENT IN BED, OBTUNDED, WITH SH 8 TO MECHANICAL VENT, SETTINGS, AC 16, TV 500, FIO2 30%, PEEP 5, TOLERATING WELL, NO SIGNS OF DISCOMFORT/GRIMACING. RIGHT UPPER ARM PICC LINE TO BE REMOVED. LAISHA ML WITH NS RUNNING TKO. FLUSHES WELL, SITE CLEAR. G-TUBE FEEDING, CHECKED FOR PLACEMENT, WITH NEPHRO AT 45 ML/HR ONGOING, TOLERATED WELL, NO RESIDUAL NOTED. OFFLOAD BUTTOCKS AND REPOSITION Q2H. KEPT HOB ELEVATED AT ALL TIMES. SAFETY PRECAUTIONS MAINTAINED. BED IN LOWEST AND LOCKED POSITION, PT MONITOR BOX AT BEDSIDE PER PM SHIFT PT HAS ALLERGIC REACTION TO EKG LEADS; MD AWARE, WILL CONTINUE TO MONITOR WDILL PERFORM PRESCRIBED WOUND TRETMANT, TURN AND REPOSITION Q 2 HOURS. CALL LIGHT WITHIN REACH.
[2022-02-01 07:37] LABS: CALCIUM, SERUM 11.3 mg/dL (8.5-10.1); CARBON DIOXIDE 25 mmol/L (21-32); CHLORIDE 95 mmol/L (98-107); CREATININE 3.3 mg/dL (0.6-1.3); GLUCOSE 194 mg/dL (74-106); MAGNESIUM 2.8 mg/dL (1.8-2.4); PHOSPHORUS 3.9 mg/dL (2.5-4.9); SODIUM SERUM 129 mmol/L (136-145); UREA NITROGEN, BLOOD 68 mg/dL (7-18)
[2022-02-01 08:00] VITALS: BP 139/98
--- NOTE | 2022-02-01 09:00 | NUR ---
RN NOTES RIGHT UPPER ARM PICC LINE REMOVED PER MD ORDER. CATH TIP COMPLETE. PRESSURE APPLIED, NO BLEEDING. DRESSING IN PLACE.
[2022-02-01] MEDS: MULTIVITAMINS,THERAGRAN 1 UDTAB TABLET GT SCH (09:25)
[2022-02-01] MEDS: PANTOPRAZOLE 40 MG/PACK PACK GT SCH (09:25)
[2022-02-01] MEDS: ACIDOPHILUS/BULGARICUS 1 EACH TAB.CHEW GT SCH (09:25)
[2022-02-01] MEDS: APIXABAN 2.5 MG TABLET GT SCH ×2 (09:25→17:19)
[2022-02-01] MEDS: SEVELAMER CARBONATE 800 MG POWD.PACK GT SCH ×3 (09:25→17:19)
[2022-02-01] MEDS: ASCORBIC ACID 500 MG TABLET GT SCH (09:25)
[2022-02-01] MEDS: PROSOURCE / PROSTAT (PYXIS) 30 ML UDC GT SCH (09:25)
[2022-02-01] MEDS: ZINC SULFATE 220 MG CAPSULE GT SCH (09:25)
[2022-02-01] MEDS: THERAHONEY GEL 1.5 OZ TUBE TP SCH (09:27)
--- NOTE | 2022-02-01 10:26 | NUR ---
RN NOTES ATTEMPTED TO CALL PT'S SON [phone] - NON WORKING NUMBER
[2022-02-01 12:00] VITALS: BP 106/58
--- NOTE | 2022-02-01 12:44 | NUR ---
LUCA NOTES CRITICAL RESULT CO2 = 42. RELAYED TO NANCY DAVENPORT NP Addendum: 02/01/22 at 1438 by IDA ROJAS RN CORRECTION: DISREGARD THIS DOCUMENTATION INTENDED FOR ANOTHER PATIENT.
--- NOTE | 2022-02-01 13:11 | NUR ---
RN NOTES RELAYED TO Faye DAVENPORT NP RE PT'S WANTS TO TALK TO HER PHONE NUMBER [phone] ALSO WANTS LOW AIRLOSS MATTRESS FOR SACRAL REDNESS AND A TRAPEZE Addendum: 02/01/22 at 1439 by IDA ROJAS RN RN NOTES DISREGARD THIS DOCUMENTATION INTENDED FOR ANOTHER PATIENT
[2022-02-01] MEDS ORDERED: EPOETIN ALFA-EPBX 10,000 UNIT/ML VIAL IV ONE (15:00)
--- NOTE | 2022-02-01 15:08 | NUR ---
RN NOTES DR. CRYSTAL BLANTON NOTIFIED ABOUT ALLERGIC REACTION TO MONITOR ELECTRODES. WILL SEE PATIENT.
--- NOTE | 2022-02-01 15:21 | NUR ---
RN NOTES DR. CRYSTAL BLANTON AT BEDSIDE. ASSESSED SKIN RASHES, PER HIM IS MORE OF REACTION TO ELECTRODES, NOTHING TO DO WITH MEDICATIONS. HE SPOKE WITH [facility], OKAY FOR HYDROCORTISONCE CREAM.
[2022-02-01 16:00] VITALS: BP 86/50
[2022-02-01] MEDS: NEPRO 1,000 ML BOTTLE GT SCH (16:03)
[2022-02-01] MEDS: HYDROCORTISONE 1% CREAM 28.35 GM TUBE TP SCH (17:13)
--- NOTE | 2022-02-01 18:15 | NUR ---
WELLNESS NURSE RN CLOSING NOTES PATIENT IN BED, RESTING COMFORTABLY, OBTUNDED, WITH SH 8 TO MECHANICAL VENT, SETTINGS, AC 16, TV 500, FIO2 30%, PEEP 5, TOLERATING WELL, O2 SAT >95%, NO SIGNS OF DISCOMFORT/GRIMACING. RIGHT UPPER ARM PICC LINE REMOVED EARLIER ORDERED. LAISHA ML WITH NS RUNNING TKO. FLUSHES WELL, SITE CLEAR. G-TUBE FEEDING, CHECKED FOR PLACEMENT, WITH NEPHRO AT 45 ML/HR ONGOING, TOLERATED WELL, NO RESIDUAL NOTED. OFFLOAD BUTTOCKS AND REPOSITION Q2H. KEPT HOB ELEVATED AT ALL TIMES. SAFETY PRECAUTIONS MAINTAINED. BED IN LOWEST AND LOCKED POSITION, PT MONITOR BOX AT BEDSIDE PER PM SHIFT PT HAS ALLERGIC REACTION TO EKG LEADS; AWARE,PERFORMED PM CARE AND PRESCRIBED WOUND TREATMENT, TURNED AND REPOSITIONED Q 2 HOURS. CALL LIGHT WITHIN REACH. ALL NEEDS MET AT THIS TIME. WILL ENDORSE TO NEXT SHIFT FOR MARTA
--- NOTE | 2022-02-01 19:47 | NUR ---
HAIR BOILER OPERATOR OPENING NOTES RECEIVED PATIENT IN BED, OBTUNDED, ON MECHANICAL VENT SETTINGS TOLERATING WELL. NO RESPIRATORY DISTRESS NOTED. AFEBRILE. NO PAIN NOTED. HAS LAISHA ML WITH NS RUNNING TKO. INTACT, PATENT AND FLUSHING. G-TUBE FEEDING OF NEPHRO AT 45 ML/HR TOLERATED WELL, NO RESIDUAL NOTED. OFFLOAD BUTTOCKS AND REPOSITION Q2H. KEPT HOB ELEVATED AT ALL TIMES. SAFETY PRECAUTIONS MAINTAINED. BED IN LOWEST AND LOCKED POSITION, PT MONITOR BOX AT BEDSIDE PER AM SHIFT PT HAS ALLERGIC REACTION TO EKG LEADS; MD AWARE, WILL CONTINUE TO MONITOR THROUGHOUT THE SHIFT.
[2022-02-01 20:00] VITALS: BP 133/63
[2022-02-01] MEDS: DIGOXIN 0.125 MG TABLET GT SCH (22:10)
[2022-02-02] VITALS: BP 146/50
--- NOTE | 2022-02-02 | NUR ---
RN NOTE BS CHECKED AT 146 MG/DL, 2 UNITS OF INSULIN GIVEN PER SLIDING SCALE. WILL CONT TO MONITOR.
[2022-02-02] MEDS: BLOOD SUGAR DIAGNOSTIC 1 EACH STRIP IN SCH ×4 (00:44→17:05)
[2022-02-02] MEDS: IPRATROPIUM NEB FS 0.5 MG/2.5 ML AMPUL.NEB NEB SCH ×4 (01:59→20:19)
[2022-02-02] MEDS: ALBUTEROL FS 2.5 MG/3 ML VIAL.NEB NEB SCH ×4 (01:59→20:19)
[2022-02-02 04:00] VITALS: BP 132/81
[2022-02-02] MEDS: hydrALAZINE HCL 25 MG TABLET GT SCH ×3 (04:58→21:00)
[2022-02-02] MEDS: MEROPENEM 500 MG in IV NS 0.9% 50 ML IV SCH ×2 (05:00→17:05)
[2022-02-02 06:11] LABS: CALCIUM, SERUM 11.5 mg/dL (8.5-10.1); CARBON DIOXIDE 24 mmol/L (21-32); CHLORIDE 94 mmol/L (98-107); CREATININE 3.8 mg/dL (0.6-1.3); GLUCOSE 204 mg/dL (74-106); MAGNESIUM 2.9 mg/dL (1.8-2.4); PHOSPHORUS 4.2 mg/dL (2.5-4.9); SODIUM SERUM 130 mmol/L (136-145)
[2022-02-02] MEDS: INSULIN REGULAR, HUMAN 100 UNIT/ML 3 ML VIAL SQ PRN ×3 (06:25→17:21)
--- NOTE | 2022-02-02 06:30 | NUR ---
RN NOTE CRITICAL RESULT FROM LAB BUN OF 85, RESULT RELAYED TO ROAD INSPECTOR DOC PANFILO WITH NNO. WILL CONT TO MONITOR.
--- NOTE | 2022-02-02 06:31 | NUR ---
MOVIE PRODUCER CLOSING NOTES PATIENT REMAINS IN BED, OBTUNDED, ON MECHANICAL VENT SETTINGS TOLERATING WELL. NO RESPIRATORY DISTRESS NOTED. AFEBRILE. NO PAIN NOTED. HAS LAISHA ML WITH NS RUNNING TKO. INTACT, PATENT AND FLUSHING. ON TELE MONITORING CURRENTLY READING AFIB CONTROLLED AT 68, G-TUBE FEEDING IN PLACE RUNNING NEPHRO AT 45 ML/HR TOLERATED WELL, NO RESIDUAL NOTED. OFFLOAD BUTTOCKS AND REPOSITION Q2H. KEPT HOB ELEVATED AT ALL TIMES. ALL DUE MEDS GIVEN, KEPT DRY AND CLEAN, SAFETY PRECAUTIONS MAINTAINED. BED IN LOWEST AND LOCKED POSITION, WILL ENDORSE TO AM SHIFT NURSE FOR CONTINUITY OF CARE.
--- NOTE | 2022-02-02 06:31 | NUR ---
RN NOTE BS CHECKED AT 187 MG/DL, 3 UNITS OF INSULIN GIVEN PER SLIDING SCALE. WILL CONT TO MONITOR.
[2022-02-02 06:36] LABS: UREA NITROGEN, BLOOD 85 mg/dL (7-18)
[2022-02-02 06:44] LABS: BASOPHILS % (AUTO) 0.4 % (0.0-2.0); EOSINOPHILS % (AUTO) 3.4 % (0.0-6.0); HEMATOCRIT 30 % (39-51); HEMOGLOBIN 9.8 g/dL (13.5-17.5); LYMPHOCYTES # (AUTO) 0.9 K/uL (0.8-4.8); LYMPHOCYTES % (AUTO) 8.9 % (20.0-44.0); MEAN CORPUSCULAR HGB CONC 33 g/dl (31.0-36.0); MEAN CORPUSCULAR VOLUME 87 fL (80-96); MONOCYTES # (AUTO) 0.5 K/uL (0.1-1.30); NEUTROPHILS # (AUTO) 8.3 K/uL (1.8-8.9); NEUTROPHILS % (AUTO) 82.3 % (43.0-81.0); PLATELET COUNT (AUTO) 182 K/uL (150-450); RED BLOOD CELL COUNT(AUTO) 3.43 MIL/uL (4.5-6.0); WHITE BLOOD COUNT (AUTO) 10.1 K/uL (4.3-11.0)
--- NOTE | 2022-02-02 07:46 | NUR ---
SENIOR DATABASE PROGRAMMER AN NOTES RECEIVED PATIENT IN BED, OBTUNDED, WITH SH 8 TO MECHANICAL VENT, SETTINGS, AC 16, TV 500, FIO2 30%, PEEP 5, TOLERATING WELL, NO SIGNS OF DISCOMFORT/GRIMACING. AFIB CONTROLLED HR 67 ON MONITOR. NO SIGNS OF DISCOMFORT/GRIMACING. LAISHA ML WITH NS RUNNING TKO. FLUSHES WELL, SITE CLEAR. G-TUBE FEEDING, CHECKED FOR PLACEMENT, WITH NEPHRO AT 45 ML/HR ONGOING, TOLERATED WELL, NO RESIDUAL NOTED. OFFLOAD BUTTOCKS AND REPOSITION Q2H. KEPT HOB ELEVATED AT ALL TIMES. SAFETY PRECAUTIONS MAINTAINED. BED IN LOWEST AND LOCKED POSITION, STILL WITH REDNESS/ALLERGIC REACTION TO EKG LEADS; MD AWARE, WILL CONTINUE TO MONITOR WILL PERFORM PRESCRIBED WOUND TREATMENT, TURN AND REPOSITION Q 2 HOURS. CALL LIGHT WITHIN REACH.
[2022-02-02 08:00] VITALS: BP 158/62
[2022-02-02] MEDS: SEVELAMER CARBONATE 800 MG POWD.PACK GT SCH ×3 (08:43→17:05)
[2022-02-02] MEDS: ASCORBIC ACID 500 MG TABLET GT SCH (08:43)
[2022-02-02] MEDS: ACIDOPHILUS/BULGARICUS 1 EACH TAB.CHEW GT SCH (08:43)
[2022-02-02] MEDS: APIXABAN 2.5 MG TABLET GT SCH ×2 (08:44→17:07)
[2022-02-02] MEDS: ZINC SULFATE 220 MG CAPSULE GT SCH (08:44)
[2022-02-02] MEDS: PANTOPRAZOLE 40 MG/PACK PACK GT SCH (08:44)
[2022-02-02] MEDS: MULTIVITAMINS,THERAGRAN 1 UDTAB TABLET GT SCH (08:44)
[2022-02-02] MEDS: PROSOURCE / PROSTAT (PYXIS) 30 ML UDC GT SCH (08:48)
[2022-02-02] MEDS: THERAHONEY GEL 1.5 OZ TUBE TP SCH (08:49)
[2022-02-02] MEDS: HYDROCORTISONE 1% CREAM 28.35 GM TUBE TP SCH ×2 (08:49→17:05)
--- NOTE | 2022-02-02 09:30 | NUR ---
RN NOTES DUE MEDS GIVEN
[2022-02-02] MEDS: NEPRO 1,000 ML BOTTLE GT SCH (11:12)
[2022-02-02] MEDS: VANCOMYCIN 500 MG in IV D5W 100 ML IV PRN (11:12)
--- NOTE | 2022-02-02 11:31 | NUR ---
RN NOTES HEMODIALYSIS COMPLETED. 2 LITERS OUT BP 142/46 HR 69 RR 22 TEMP 98.4
[2022-02-02 12:00] VITALS: BP 142/46
[2022-02-02 16:00] VITALS: BP 141/87
--- NOTE | 2022-02-02 18:16 | NUR ---
SUPERVISOR REWORK CLOSING NOTES PATIENT IN BED, RESTING COMFORTABLY, OBTUNDED, WITH SH 8 TO MECHANICAL VENT, SETTINGS, AC 16, TV 500, FIO2 30%, PEEP 5, TOLERATING WELL, O2 SAT >95%, NO SIGNS OF DISCOMFORT/GRIMACING. LAISHA ML WITH NS RUNNING TKO. FLUSHES WELL, SITE CLEAR. G-TUBE FEEDING, CHECKED FOR PLACEMENT, WITH NEPHRO AT 45 ML/HR ONGOING, TOLERATED WELL, NO RESIDUAL NOTED. OFFLOAD BUTTOCKS AND REPOSITION Q2H. KEPT HOB ELEVATED AT ALL TIMES. SAFETY PRECAUTIONS MAINTAINED. BED IN LOWEST AND LOCKED POSITION, PERFORMED PM CARE AND PRESCRIBED WOUND TREATMENT, TURNED AND REPOSITIONED Q 2 HOURS. CALL LIGHT WITHIN REACH. ALL NEEDS MET AT THIS TIME. WILL ENDORSE TO NEXT SHIFT FOR MARTA
[2022-02-02 20:00] VITALS: BP 103/42
--- NOTE | 2022-02-02 20:09 | NUR ---
RN OPENING NOTE PT LYING IN BED AND UNABLE TO ASSESS LOC. PT IS ON MECHANICAL VENTILATOR WITH O2 SAT OF 96%. RESPIRATIONS EVEN AND UNLABORED. G TUBE FEEDING AT 45 ML/HR. NO ACUTE SIGNS OF DISTRESS. SKIN IS WARM WARM AND DRY. SAFETY PRECAUTIONS IN PLACE. BED LOCKED AND AT LOWEST LEVEL. 2 SIDE RAILS UP.
[2022-02-02] MEDS: DIGOXIN 0.125 MG TABLET GT SCH (21:49)
--- NOTE | 2022-02-02 21:50 | NUR ---
DIGOXIN AND HYDRALAZINE NOT ADMINISTERED AT THIS TIME, BP 101/41, HR 59, WILL CONTINUE TO MONITOR CLOSELY.
[2022-02-03] VITALS: BP 111/43
[2022-02-03] MEDS: ALBUTEROL FS 2.5 MG/3 ML VIAL.NEB NEB SCH ×4 (01:30→20:13)
[2022-02-03] MEDS: IPRATROPIUM NEB FS 0.5 MG/2.5 ML AMPUL.NEB NEB SCH ×4 (01:30→20:13)
[2022-02-03] MEDS: INSULIN REGULAR, HUMAN 100 UNIT/ML 3 ML VIAL SQ PRN ×5 (01:39→23:57)
[2022-02-03 04:00] VITALS: BP 103/38
[2022-02-03] MEDS: hydrALAZINE HCL 25 MG TABLET GT SCH ×3 (05:00→21:37)
[2022-02-03] MEDS: MEROPENEM 500 MG in IV NS 0.9% 50 ML IV SCH ×2 (05:43→17:06)
--- NOTE | 2022-02-03 06:45 | NUR ---
END OF SHIFT, PATIENT ASLEEP AROUSES TO TACTILE STIMULI, ON MECHANICAL VENTILATOR TOLERATED SETTINGS WELL, NO SOB/ACUTE DISTRESS NSR-SB IN TELE MONITOR, GTUBE IN PLACED, FEEDING AT 45 ML/HR, NO RESIDUAL NOTED, HOB ELEVATED AT ALL TIMES, SLIGHT BLEEDING NOTED IN SACRAL WOUND, CLEANED, PRESSURE APPLIED, AND DRESSING APPLIED, OTHERWISE NO SIGNIFICANT CHANGE IN CONDITION DURING THE NIGHT, ALL SAFETY PRECAUTIONS IN PLACE, BED LOCKED AND AT LOWEST LEVEL, 2 SIDE RAILS UP, WILL CONTINUE TO MONITOR CLOSELY.
--- NOTE | 2022-02-03 07:00 | NUR ---
glucometers not working, contacted the lab to exchange machines, per lab glarometers are working, glarometers taken to lab and back to the unit, tried again and glucometers unable to work, BMP done by lab, endorsed to farida SEGOVIA to follow up with blood sugar results.
[2022-02-03 07:39] LABS: CALCIUM, SERUM 10.2 mg/dL (8.5-10.1); CARBON DIOXIDE 28 mmol/L (21-32); CHLORIDE 95 mmol/L (98-107); CREATININE 2.7 mg/dL (0.6-1.3); GLUCOSE 208 mg/dL (74-106); POTASSIUM 3.5 mmol/L (3.5-5.1); SODIUM SERUM 132 mmol/L (136-145); UREA NITROGEN, BLOOD 50 mg/dL (7-18)
[2022-02-03 08:00] VITALS: BP 117/51
[2022-02-03] MEDS: BLOOD SUGAR DIAGNOSTIC 1 EACH STRIP IN SCH ×5 (08:53→23:56)
[2022-02-03] MEDS: MULTIVITAMINS,THERAGRAN 1 UDTAB TABLET GT SCH (09:55)
[2022-02-03] MEDS: ACIDOPHILUS/BULGARICUS 1 EACH TAB.CHEW GT SCH (09:56)
[2022-02-03] MEDS: PANTOPRAZOLE 40 MG/PACK PACK GT SCH (09:56)
[2022-02-03] MEDS: ASCORBIC ACID 500 MG TABLET GT SCH (09:56)
[2022-02-03] MEDS: SEVELAMER CARBONATE 800 MG POWD.PACK GT SCH ×3 (09:56→17:06)
[2022-02-03] MEDS: ZINC SULFATE 220 MG CAPSULE GT SCH (09:56)
[2022-02-03] MEDS: PROSOURCE / PROSTAT (PYXIS) 30 ML UDC GT SCH (10:00)
[2022-02-03] MEDS: APIXABAN 2.5 MG TABLET GT SCH ×2 (10:01→17:07)
[2022-02-03] MEDS: HYDROCORTISONE 1% CREAM 28.35 GM TUBE TP SCH ×2 (10:08→17:12)
[2022-02-03] MEDS: IV NS 0.9% 250 ML IV PRN (10:43)
[2022-02-03] MEDS: NEPRO 1,000 ML BOTTLE GT SCH (10:44)
[2022-02-03] MEDS: THERAHONEY GEL 1.5 OZ TUBE TP SCH (11:20)
[2022-02-03 12:00] VITALS: BP 128/41
[2022-02-03 16:00] VITALS: BP 128/51
--- NOTE | 2022-02-03 19:03 | NUR ---
NO SIGNIFICANT CHANGES NOTED AT THIS TIME; PRN AND HOURLY ROUNDING DONE. ENDORSED TO RN-PHILL PHOTOENGRAVING FINISHER FOR CONTINUITY OF CARE.
--- NOTE | 2022-02-03 19:35 | NUR ---
RN OPENING NOTES RECEIVED PATIENT IN BED, OBTUNDED, TRACH TO MECHANICAL VENT AND PT TOLERATED WELL. S#8, AC 16, TV 500, FIO2 30%, PEEP 5. IV ACCESS ON LAISHA ML AND RT SUBCLAVIAN HD INTACT AND PATENT. G-TUBE FEEDING WELL TOLERATED. NEPHRO AT 45 ML/HR. NO RESIDUAL NOTED. NO FACIAL GRIMACING NOTED. NO ACUTE DISTRESS. ALL SAFETY MEASURES IN PLACE. BED IN LOWEST POSITION AND LOCKED. SIDE RAILS UP X3. PLACE CALL LIGHT WITH IN REACH. WILL CONTINUE TO MONITOR.
[2022-02-03 20:00] VITALS: BP 122/51
[2022-02-03] MEDS: DIGOXIN 0.125 MG TABLET GT SCH (21:38)
--- NOTE | 2022-02-03 21:38 | NUR ---
RN NOTES: HOLD DIGOXIN. PULSE-57. WILL CONTINUE TO MONITOR
[2022-02-04] VITALS: BP 107/54
--- NOTE | 2022-02-04 | NUR ---
RN NOTES: PT'S BLOOD SUGAR 207. 4 UNITS OF REGULAR INSULIN GIVEN. NO S/S OF HYPER/HYPOGLYCEMIA. WILL CONTINUE TO MONITOR
[2022-02-04] MEDS: ALBUTEROL FS 2.5 MG/3 ML VIAL.NEB NEB SCH ×4 (01:18→20:01)
[2022-02-04] MEDS: IPRATROPIUM NEB FS 0.5 MG/2.5 ML AMPUL.NEB NEB SCH ×4 (01:18→20:01)
[2022-02-04 04:00] VITALS: BP 131/87
[2022-02-04] MEDS: hydrALAZINE HCL 25 MG TABLET GT SCH ×3 (04:43→21:09)
[2022-02-04] MEDS: MEROPENEM 500 MG in IV NS 0.9% 50 ML IV SCH ×2 (05:36→17:26)
[2022-02-04] MEDS: BLOOD SUGAR DIAGNOSTIC 1 EACH STRIP IN SCH ×3 (05:46→18:16)
[2022-02-04] MEDS: INSULIN REGULAR, HUMAN 100 UNIT/ML 3 ML VIAL SQ PRN ×3 (05:47→18:29)
--- NOTE | 2022-02-04 05:49 | NUR ---
RN NOTES: PT'S BLOOD SUGAR 168. 3 UNITS OF REGULAR INSULIN GIVEN. NO S/S OF HYPER/HYPOGLYCEMIA. WILL CONTINUE TO MONITOR
--- NOTE | 2022-02-04 07:00 | NUR ---
RN NOTE RECEIVED PATIENT IN BED RESTING EYE CLOSED,OBTUNDED ON MECHANICAL VENT,SETTING PRESCIBED,ON G-TUBE FEEDING NEPRO 45CC/HR CHECKED PLACEMENT,NO RESIDUAL NOTED,IV SITE IS ON LEFT UPPER ARM MIDLINE,AND RIGHT UPPER SUBCLAVIAN HD INTACT PATENT,SAFETY MEASURE IMPLEMENT, BED IN LOW POSTIION AND LOCKED,HEAD OF THE BED ELEVATED,CONTINUE TO MONITOR.
[2022-02-04 07:33] LABS: CALCIUM, SERUM 10.1 mg/dL (8.5-10.1); CARBON DIOXIDE 26 mmol/L (21-32); CHLORIDE 96 mmol/L (98-107); CREATININE 3.4 mg/dL (0.6-1.3); GLUCOSE 172 mg/dL (74-106); POTASSIUM 3.5 mmol/L (3.5-5.1); SODIUM SERUM 133 mmol/L (136-145); UREA NITROGEN, BLOOD 75 mg/dL (7-18)
[2022-02-04 08:00] VITALS: BP 127/58
[2022-02-04] MEDS: THERAHONEY GEL 1.5 OZ TUBE TP SCH (08:47)
[2022-02-04] MEDS: HYDROCORTISONE 1% CREAM 28.35 GM TUBE TP SCH ×2 (08:47→16:57)
[2022-02-04] MEDS: ASCORBIC ACID 500 MG TABLET GT SCH (08:48)
[2022-02-04] MEDS: PANTOPRAZOLE 40 MG/PACK PACK GT SCH (08:48)
[2022-02-04] MEDS: SEVELAMER CARBONATE 800 MG POWD.PACK GT SCH ×3 (08:48→16:57)
[2022-02-04] MEDS: ACIDOPHILUS/BULGARICUS 1 EACH TAB.CHEW GT SCH (08:48)
[2022-02-04] MEDS: APIXABAN 2.5 MG TABLET GT SCH ×2 (08:49→16:58)
[2022-02-04] MEDS: MULTIVITAMINS,THERAGRAN 1 UDTAB TABLET GT SCH (08:49)
[2022-02-04] MEDS: ZINC SULFATE 220 MG CAPSULE GT SCH (08:49)
[2022-02-04] MEDS: PROSOURCE / PROSTAT (PYXIS) 30 ML UDC GT SCH (08:52)
[2022-02-04 12:00] VITALS: BP 129/45
[2022-02-04] MEDS: VANCOMYCIN 500 MG in IV D5W 100 ML IV PRN (13:27)
[2022-02-04] MEDS: NEPRO 1,000 ML BOTTLE GT SCH (15:23)
[2022-02-04 16:00] VITALS: BP 116/45
--- NOTE | 2022-02-04 16:00 | NUR ---
RN NOTE COLLECT SACRA; WOUND CULTURE SEND TO LAB,WOUND TREATMENT DONE CONTINUE TO MONITOR.
--- NOTE | 2022-02-04 18:59 | NUR ---
RN NOTE PATIENT REMAINS OBTUNDED,ON MECHANICAL VENT,SETTING PRESCIBED,ON G-TUBE FEEDING NEPRO 1.8 45CC/HR,DIALYSIS DONE 2000ML FLUID OUT.ALL DUE MEDS GIVEN MD ORDERED KEPT CLEAN AND DRY ALL THE TIME,TURNED AND REPOSITIONED EVERY 2 HOURS BY STAFF,HEAD OF THE BED ELEVATED ALL THE TIME,ALL NEEDS MET ENDORSE NEXT COMING SHIFT FOR CONTINUATION OF CARE.
[2022-02-04 20:00] VITALS: BP 122/88
--- NOTE | 2022-02-04 20:00 | NUR ---
RN OPENING NOTES RECEIVED PATIENT IN BED, OBTUNDED, V/S STABLE AFEBRILE .ON MECHANICAL VENT SETTINGS WELL TOLERATED. S#8, AC 16, TV 500, FIO2 30%, PEEP 5. IV ACCESS ON LAISHA ML AND RT SUBCLAVIAN HD INTACT AND PATENT. G-TUBE FEEDING WELL TOLERATED. NEPHRO AT 45 ML/HR. NO RESIDUAL NOTED. NO FACIAL GRIMACING NOTED. NO ACUTE DISTRESS. ALL SAFETY MEASURES IN PLACE. BED IN LOWEST POSITION AND LOCKED. SIDE RAILS UP X3. PLACE CALL LIGHT WITH IN REACH. WILL CONTINUE TO MONITOR.
--- NOTE | 2022-02-04 20:05 | NUR ---
RCVD PT TRACHED SIZE SHILEY 8 ON [facility] VENT SETTINGS OF AC 16,VT 500, FIO2 30% PEEP 5. PT IS OBTUNDED. BREATHING TX GIVEN PER MD'S ORDER. NO ADVERSE REACTION NOTED. SUCTIONED SMALL AMOUNT OF THAN THICK SECRETIONS . SUPERVISOR MACHINING DONE , TRACH IS SECURED AND PATENT. AMBU BAG AT BEDSIDE. VENT PLUGGED INTO RED OUTLET, VENT ALARMS ON AND AUDIBLE. NO RESPIRATORY DISTRESS NOTED AT THIS TIME. WILL CONTINUE TO MONITOR T/O SHIFT Addendum: 02/05/22 at 0446 by LEEANNE COOMBS RT SUCTIONED SMALL AMOUNT OF BARTHOLOMEW THICK SECRETIONS
[2022-02-04] MEDS: DIGOXIN 0.125 MG TABLET GT SCH (21:10)
[2022-02-04] MEDS: ACETAMINOPHEN 325 MG TABLET MC PRN (23:08)
[2022-02-05] VITALS: BP 126/69
[2022-02-05] MEDS ORDERED: MIDODRINE HCL (5MG) 5 MG TABLET GT PRN
[2022-02-05] MEDS: INSULIN REGULAR, HUMAN 100 UNIT/ML 3 ML VIAL SQ PRN ×4 (00:55→17:20)
[2022-02-05] MEDS: BLOOD SUGAR DIAGNOSTIC 1 EACH STRIP IN SCH ×4 (00:55→17:23)
--- NOTE | 2022-02-05 00:58 | NUR ---
telecommunications technician notes Blood sugar for 12mn is 193mg/dl 3 units of regular insulin given per sliding scale pts on gt feeding
[2022-02-05] MEDS: ALBUTEROL FS 2.5 MG/3 ML VIAL.NEB NEB SCH ×4 (01:45→19:36)
[2022-02-05] MEDS: IPRATROPIUM NEB FS 0.5 MG/2.5 ML AMPUL.NEB NEB SCH ×4 (01:45→19:36)
[2022-02-05 04:00] VITALS: BP 118/54
[2022-02-05] MEDS: MEROPENEM 500 MG in IV NS 0.9% 50 ML IV SCH ×2 (05:04→17:24)
[2022-02-05] MEDS: hydrALAZINE HCL 25 MG TABLET GT SCH ×3 (06:35→20:59)
--- NOTE | 2022-02-05 06:40 | NUR ---
telecommunications consultant notes blood sugar for 6am is 139 mg/dl 2 units of regular insulin given per sliding scale
--- NOTE | 2022-02-05 07:15 | NUR ---
RN NOTE PTS REMAIN IN BED RESTING OBTUNDED ON MECHANICAL VENT,SETTING PRESCIBED,ON G-TUBE FEEDING NEPRO 45CC/HR CHECKED PLACEMENT,NO RESIDUAL NOTED,IV SITE IS ON LEFT UPPER ARM MIDLINE,AND RIGHT UPPER SUBCLAVIAN HD INTACT PATENT,SAFETY MEASURE IMPLEMENT, BED IN LOW POSTIION AND LOCKED,HEAD OF THE BED ELEVATED,WILL ENDORSE TO RN DAY SHIFT FOR CONTINUITY OF CARE.
--- NOTE | 2022-02-05 07:30 | NUR ---
RN NOTE RECEIVED PATIENT IN BED RESTING OBTUNDED ON MECHANICAL VENT SETTING PRESCRIBED,ON G-TUBE FEEDING NEPRO 1.8 45CC/HR CHECKED PLACEMENT IN PLACE NO RESIDUAL NOTED,IV SITE IS ON LEFT UPPER ARM MIDLINE AND RIGHT SUB CLAVICAL HD INTACT PATENT,SAFETY MEASURE IMPLEMENT BED IN LOW POSITION AND LOCKED,HEAD OF THE BED ELEVATED.CONTINUE TO MONITOR.
[2022-02-05 07:38] LABS: CALCIUM, SERUM 9.5 mg/dL (8.5-10.1); CARBON DIOXIDE 27 mmol/L (21-32); CHLORIDE 97 mmol/L (98-107); CREATININE 2.6 mg/dL (0.6-1.3); GLUCOSE 149 mg/dL (74-106); POTASSIUM 3.3 mmol/L (3.5-5.1); SODIUM SERUM 133 mmol/L (136-145); UREA NITROGEN, BLOOD 57 mg/dL (7-18)
[2022-02-05 08:00] VITALS: BP 133/61
[2022-02-05] MEDS: PANTOPRAZOLE 40 MG/PACK PACK GT SCH (08:23)
[2022-02-05] MEDS: MULTIVITAMINS,THERAGRAN 1 UDTAB TABLET GT SCH (08:24)
[2022-02-05] MEDS: ZINC SULFATE 220 MG CAPSULE GT SCH (08:24)
[2022-02-05] MEDS: ASCORBIC ACID 500 MG TABLET GT SCH (08:24)
[2022-02-05] MEDS: ACIDOPHILUS/BULGARICUS 1 EACH TAB.CHEW GT SCH (08:24)
[2022-02-05] MEDS: SEVELAMER CARBONATE 800 MG POWD.PACK GT SCH ×3 (08:24→16:14)
[2022-02-05] MEDS: APIXABAN 2.5 MG TABLET GT SCH ×2 (08:25→16:15)
[2022-02-05] MEDS: PROSOURCE / PROSTAT (PYXIS) 30 ML UDC GT SCH (08:27)
[2022-02-05] MEDS: HYDROCORTISONE 1% CREAM 28.35 GM TUBE TP SCH ×2 (08:28→16:16)
[2022-02-05] MEDS: THERAHONEY GEL 1.5 OZ TUBE TP SCH (08:28)
[2022-02-05] MEDS ORDERED: POTASSIUM CHLORIDE 20 MEQ TAB.PRT.SR PO ONE (10:00)
[2022-02-05 12:00] VITALS: BP 151/65
[2022-02-05 16:00] VITALS: BP 120/52
--- NOTE | 2022-02-05 16:59 | NUR ---
SS note: SW discussed with CM possible transfer to sub-acute on 02/06/2022 and per CM, HD chair time at [facility] will be assign on Tuesday02/08/22. If pt. needs HD before then while in it will be done in house. SW notified Sima ECHEVERRIA in as SW is out on weekends. SW will follow up as needed on Tuesday.
--- NOTE | 2022-02-05 18:11 | NUR ---
RN NOTE PATIENT REMAINS OBTUNDED,ON MECHANICAL VENT SETTING PRESCRIBED NO SOB NOT ACUTE DISTRESS NOTED ALL DUE MEDS GIVEN MD ORDERED.TURNED AND REPOSITIONED EVERY 2 HOURS.KEPT HEAD OF THE BED ELEVATED ALL THE TIME,ENDORSE NEXT COMING SHIFT FOR CONTINUATION OF CARE
[2022-02-05 20:00] VITALS: BP 127/62
[2022-02-05] MEDS: DIGOXIN 0.125 MG TABLET GT SCH (21:01)
--- NOTE | 2022-02-05 21:02 | NUR ---
telegraphic typewriter mechanic notes digoxin dose held hr- 59
[2022-02-05] MEDS: NEPRO 1,000 ML BOTTLE GT SCH (21:46)
[2022-02-06] VITALS: BP 131/78
[2022-02-06] MEDS: INSULIN REGULAR, HUMAN 100 UNIT/ML 3 ML VIAL SQ PRN ×4 (00:23→17:13)
[2022-02-06] MEDS: BLOOD SUGAR DIAGNOSTIC 1 EACH STRIP IN SCH ×4 (00:25→17:11)
--- NOTE | 2022-02-06 00:27 | NUR ---
telephoto engineer notes blood sugar for 12mn is 209mg/dl 4 units of regular insulin given per sliding scale,pts on gt feeding.
[2022-02-06] MEDS: IPRATROPIUM NEB FS 0.5 MG/2.5 ML AMPUL.NEB NEB SCH ×4 (01:15→19:41)
[2022-02-06] MEDS: ALBUTEROL FS 2.5 MG/3 ML VIAL.NEB NEB SCH ×4 (01:15→19:41)
[2022-02-06 04:00] VITALS: BP 130/57
[2022-02-06] MEDS: MEROPENEM 500 MG in IV NS 0.9% 50 ML IV SCH ×2 (05:02→18:15)
[2022-02-06] MEDS: hydrALAZINE HCL 25 MG TABLET GT SCH ×3 (05:10→21:27)
--- NOTE | 2022-02-06 05:23 | NUR ---
telemetry nurse notes Blood sugar for 6am is 185mg/dl 3 units of regular insulin given per sliding scale. pts on gt feeding.
--- NOTE | 2022-02-06 05:36 | NUR ---
RN NOTE PTS REMAIN IN BED RESTING OBTUNDED ON MECHANICAL VENT,SETTING PRESCIBED,ON G-TUBE FEEDING NEPRO 45CC/HR CHECKED PLACEMENT,NO RESIDUAL NOTED,IV SITE IS ON LEFT UPPER ARM MIDLINE,AND RIGHT UPPER SUBCLAVIAN HD INTACT PATENT,SAFETY MEASURE IMPLEMENT, BED IN LOW POSTIION AND LOCKED,HEAD OF THE BED ELEVATED, PTS FOR HD TODAY .WILL ENDORSE TO RN DAY SHIFT FOR CONTINUITY OF CARE.
[2022-02-06 06:57] LABS: CALCIUM, SERUM 9.7 mg/dL (8.5-10.1); CARBON DIOXIDE 24 mmol/L (21-32); CHLORIDE 96 mmol/L (98-107); CREATININE 3.2 mg/dL (0.6-1.3); GLUCOSE 200 mg/dL (74-106); POTASSIUM 3.9 mmol/L (3.5-5.1); SODIUM SERUM 131 mmol/L (136-145)
--- NOTE | 2022-02-06 07:12 | NUR ---
RN OPENING NOTES RECEIVED PATIENT IN BED, OBTUNDED, V/S STABLE AFEBRILE .ON MECHANICAL VENT SETTINGS WELL TOLERATED. S#8, AC 16, TV 500, FIO2 30%, PEEP 5. IV ACCESS ON LAISHA ML AND RT SUBCLAVIAN HD INTACT AND PATENT. G-TUBE FEEDING WELL TOLERATED. NEPHRO AT 45 ML/HR. NO RESIDUAL NOTED. NO FACIAL GRIMACING NOTED. NO ACUTE DISTRESS .HOB ELEVATED FOR ASPIRATION PRECAUTION. ALL SAFETY MEASURES IN PLACE. BED IN LOWEST POSITION AND LOCKED. SIDE RAILS UP X3. CALL LIGHT WITH IN REACH.
[2022-02-06 08:00] VITALS: BP 133/73
[2022-02-06] MEDS: ZINC SULFATE 220 MG CAPSULE GT SCH (08:12)
[2022-02-06] MEDS: SEVELAMER CARBONATE 800 MG POWD.PACK GT SCH ×3 (08:12→17:11)
[2022-02-06] MEDS: ACIDOPHILUS/BULGARICUS 1 EACH TAB.CHEW GT SCH (08:12)
[2022-02-06] MEDS: MULTIVITAMINS,THERAGRAN 1 UDTAB TABLET GT SCH (08:12)
[2022-02-06] MEDS: PANTOPRAZOLE 40 MG/PACK PACK GT SCH (08:12)
[2022-02-06] MEDS: PROSOURCE / PROSTAT (PYXIS) 30 ML UDC GT SCH (08:12)
[2022-02-06] MEDS: ASCORBIC ACID 500 MG TABLET GT SCH (08:12)
[2022-02-06] MEDS: APIXABAN 2.5 MG TABLET GT SCH ×2 (08:14→17:12)
[2022-02-06] MEDS: THERAHONEY GEL 1.5 OZ TUBE TP SCH (08:15)
[2022-02-06] MEDS: HYDROCORTISONE 1% CREAM 28.35 GM TUBE TP SCH ×2 (08:15→17:11)
[2022-02-06 08:31] LABS: UREA NITROGEN, BLOOD 80 mg/dL (7-18)
[2022-02-06 12:00] VITALS: BP 158/76
[2022-02-06 16:00] VITALS: BP 137/66
[2022-02-06] MEDS: VANCOMYCIN 500 MG in IV D5W 100 ML IV PRN (17:11)
--- NOTE | 2022-02-06 18:33 | NUR ---
RN CLOSING NOTE PTS REMAIN IN BED RESTING OBTUNDED ON MECHANICAL VENT,SETTING PRESCRIBED,ON G-TUBE FEEDING NEPRO 45CC/HR CHECKED PLACEMENT,NO RESIDUAL NOTED,IV SITE IS ON LEFT UPPER ARM MIDLINE,AND RIGHT UPPER SUBCLAVIAN HD INTACT PATENT,SAFETY MEASURE IMPLEMENT, BED IN LOW POSITION AND LOCKED,HEAD OF THE BED ELEVATED.WILL ENDORSE TO RN NIGHTSHIFT FOR CONTINUITY OF CARE.
[2022-02-06 20:00] VITALS: BP 123/53
--- NOTE | 2022-02-06 20:00 | NUR ---
CITY ENGINEER OPENING NOTES RECEIVED PATIENT IN BED, OBTUNDED, V/S STABLE AFEBRILE .ON MECHANICAL VENT SETTINGS WELL TOLERATED. S#8, AC 16, TV 500, FIO2 30%, PEEP 5. IV ACCESS ON LAISHA ML AND RT SUBCLAVIAN HD INTACT AND PATENT. G-TUBE FEEDING WELL TOLERATED. NEPHRO AT 45 ML/HR. NO RESIDUAL NOTED. NO FACIAL GRIMACING NOTED. NO ACUTE DISTRESS. SUCTION SECRETION DONE AND PRN ,TURNED AND REPOSITION Q 2 HRS PRN .HOB ELEVATED AT ALL TIMES FOR ASPIRATION PRECAUTION. ALL SAFETY MEASURES IN PLACE. BED IN LOWEST POSITION AND LOCKED. SIDE RAILS UP X3. CALL LIGHT WITH IN REACH. WILL CONTINUE TO MONITOR.KEPT PTS COMFORTABLE.
[2022-02-06] MEDS: DIGOXIN 0.125 MG TABLET GT SCH (21:27)
[2022-02-06] MEDS: ACETAMINOPHEN 325 MG TABLET MC PRN (21:30)
[2022-02-07] VITALS: BP 106/53
[2022-02-07] MEDS: NEPRO 1,000 ML BOTTLE GT SCH (00:18)
--- NOTE | 2022-02-07 00:21 | NUR ---
program director cable television notes Transfer care and report given LUCA Cooley for continuity of care.
[2022-02-07] MEDS: BLOOD SUGAR DIAGNOSTIC 1 EACH STRIP IN SCH ×2 (00:31→05:39)
[2022-02-07] MEDS: INSULIN REGULAR, HUMAN 100 UNIT/ML 3 ML VIAL SQ PRN ×2 (01:01→08:01)
[2022-02-07] MEDS: IPRATROPIUM NEB FS 0.5 MG/2.5 ML AMPUL.NEB NEB SCH ×2 (02:17→10:48)
[2022-02-07] MEDS: ALBUTEROL FS 2.5 MG/3 ML VIAL.NEB NEB SCH ×2 (02:17→10:48)
[2022-02-07 04:00] VITALS: BP 110/57
[2022-02-07] MEDS: hydrALAZINE HCL 25 MG TABLET GT SCH (05:00)
[2022-02-07] MEDS: MEROPENEM 500 MG in IV NS 0.9% 50 ML IV SCH (05:40)
[2022-02-07 08:00] VITALS: BP 120/54
--- NOTE | 2022-02-07 09:00 | NUR ---
DR. MACEDO SEEN PT.
[2022-02-07] MEDS: MULTIVITAMINS,THERAGRAN 1 UDTAB TABLET GT SCH (09:38)
[2022-02-07] MEDS: PANTOPRAZOLE 40 MG/PACK PACK GT SCH (09:38)
[2022-02-07] MEDS: ZINC SULFATE 220 MG CAPSULE GT SCH (09:38)
[2022-02-07] MEDS: ACIDOPHILUS/BULGARICUS 1 EACH TAB.CHEW GT SCH (09:38)
[2022-02-07] MEDS: SEVELAMER CARBONATE 800 MG POWD.PACK GT SCH (09:38)
[2022-02-07] MEDS: ASCORBIC ACID 500 MG TABLET GT SCH (09:38)
[2022-02-07] MEDS: HYDROCORTISONE 1% CREAM 28.35 GM TUBE TP SCH (09:39)
[2022-02-07] MEDS: THERAHONEY GEL 1.5 OZ TUBE TP SCH (09:39)
[2022-02-07] MEDS: PROSOURCE / PROSTAT (PYXIS) 30 ML UDC GT SCH (09:41)
[2022-02-07 09:43] LABS: CARBON DIOXIDE 25 mmol/L (21-32); CHLORIDE 99 mmol/L (98-107); CREATININE 2.4 mg/dL (0.6-1.3); GLUCOSE 174 mg/dL (74-106); SODIUM SERUM 132 mmol/L (136-145); UREA NITROGEN, BLOOD 54 mg/dL (7-18)
[2022-02-07] MEDS: APIXABAN 2.5 MG TABLET GT SCH (09:43)
[2022-02-07] MEDS ORDERED: FLUCONAZOLE (100 MG) 100 MG TABLET PO SCH (10:00)
--- NOTE | 2022-02-07 10:40 | NUR ---
REPORT GIVEN TO NAY SEGOVIA.
--- NOTE | 2022-02-07 11:05 | NUR ---
TRANSFERRED PT. VIA BED TO SUBACUTE RM 273 PER ORDER/PROTOCOL, ACCOMPANIED BY RT/RN ; NO SSx OF ACUTE DISTRESS NOTED. CHARGE NURSE AWARE OF DISCHARGE AND TRANSFER. SINDY-LUCA SUBACUTE AT BEDSIDE
[2022-02-07] MEDS ORDERED: SEVE800T8 GT (16:32)
[2022-02-07] MEDS ORDERED: ACET650S11 RC (16:32)
[2022-02-07] MEDS ORDERED: ALBU2.5V38 IH (16:32)
[2022-02-07] MEDS ORDERED: INSU100V28 SQ (16:32)
[2022-02-07] MEDS ORDERED: FLUC100T GT (16:32)
[2022-02-07] MEDS ORDERED: ACID1TAB12 GT (16:32)
[2022-02-07] MEDS ORDERED: MULT-24 GT (16:32)
[2022-02-07] MEDS ORDERED: ONDA4VIA52 IV (16:32)
[2022-02-07] MEDS ORDERED: MIDO5TAB4 GT (16:32)
[2022-02-07] MEDS ORDERED: DEXT50DI8 IV (16:32)
[2022-02-07] MEDS ORDERED: MERO500V23 IV (16:32)
[2022-02-07] MEDS ORDERED: HYDR-4076 GT (16:32)
[2022-02-07] MEDS ORDERED: NUT.237L67 GT (16:32)
[2022-02-07] MEDS ORDERED: PANT40SU2 GT (16:32)
== END 2022-02-07 11:00 | DRG 3 ==
LOC: ER 18:36 → ICU 20:36 → TELE 01-14 15:26 → TELE1 01-15 10:23 → TELE-TD 01-15 10:52 → ICU 01-17 07:39 → TELE1 01-29 17:56 → TELE-TD 02-01 21:36 → TELE1 02-04 10:26
PROVIDERS: ADMIT Nurse Practitioner Acute Care; ATTEND Internal Medicine
PROC: 5A09357 Assistance with Respiratory Ventilation, Less than 24 Consecutive Hours, Continuous Positive Airway Pressure (ICD-10-PCS; principal; 2022-01-17)
PROC: 5A1D70Z Performance of Urinary Filtration, Intermittent, Less than 6 Hours Per Day (ICD-10-PCS; 2022-01-17)
PROC: 5A1955Z Respiratory Ventilation, Greater than 96 Consecutive Hours (ICD-10-PCS; 2022-01-18)
PROC: 0BH17EZ Insertion of Endotracheal Airway into Trachea, Via Natural or Artificial Opening (ICD-10-PCS; 2022-01-18)
PROC: 05HM33Z Insertion of Infusion Device into Right Internal Jugular Vein, Percutaneous Approach (ICD-10-PCS; 2022-01-18)
PROC: 0BJ08ZZ Inspection of Tracheobronchial Tree, Via Natural or Artificial Opening Endoscopic (ICD-10-PCS; 2022-01-18)
PROC: B543ZZA Ultrasonography of Right Jugular Veins, Guidance (ICD-10-PCS; 2022-01-18)
PROC: 30233N1 Transfusion of Nonautologous Red Blood Cells into Peripheral Vein, Percutaneous Approach (ICD-10-PCS; 2022-01-19)
PROC: 0B113F4 Bypass Trachea to Cutaneous with Tracheostomy Device, Percutaneous Approach (ICD-10-PCS; 2022-01-28)
PROC: 0JH63XZ Insertion of Tunneled Vascular Access Device into Chest Subcutaneous Tissue and Fascia, Percutaneous Approach (ICD-10-PCS; 2022-01-28)
PROC: 05HM33Z Insertion of Infusion Device into Right Internal Jugular Vein, Percutaneous Approach (ICD-10-PCS; 2022-01-28)
PROC: B513YZA Fluoroscopy of Right Jugular Veins using Other Contrast, Guidance (ICD-10-PCS; 2022-01-28)
PROC: 0BJ08ZZ Inspection of Tracheobronchial Tree, Via Natural or Artificial Opening Endoscopic (ICD-10-PCS; 2022-01-28)
PROC: 05HA33Z Insertion of Infusion Device into Left Brachial Vein, Percutaneous Approach (ICD-10-PCS; 2022-01-31)
PROC: 0KBP0ZZ Excision of Left Hip Muscle, Open Approach (ICD-10-PCS; 2022-02-02)
DX: A41.9 Sepsis, unspecified organism (principal); L89.314 Pressure ulcer of right buttock, stage 4; G92.8 Other toxic encephalopathy; J96.01 Acute respiratory failure with hypoxia; J15.6 Pneumonia due to other Gram-negative bacteria; I50.33 Acute on chronic diastolic (congestive) heart failure; J69.0 Pneumonitis due to inhalation of food and vomit; J96.02 Acute respiratory failure with hypercapnia; N17.0 Acute kidney failure with tubular necrosis; I50.30 Unspecified diastolic (congestive) heart failure; J98.11 Atelectasis; I13.0 Hypertensive heart and chronic kidney disease with heart failure and stage 1 through stage 4 chronic kidney disease, or unspecified chronic kidney disease; I48.20 Chronic atrial fibrillation, unspecified; D68.59 Other primary thrombophilia; E87.20 Acidosis, unspecified; L97.429 Non-pressure chronic ulcer of left heel and midfoot with unspecified severity; L98.419 Non-pressure chronic ulcer of buttock with unspecified severity; Z20.822 Contact with and (suspected) exposure to COVID-19; I70.0 Atherosclerosis of aorta; E78.5 Hyperlipidemia, unspecified; Z86.16 Personal history of COVID-19; Z74.01 Bed confinement status; N40.0 Benign prostatic hyperplasia without lower urinary tract symptoms; K57.90 Diverticulosis of intestine, part unspecified, without perforation or abscess without bleeding; Z79.51 Long term (current) use of inhaled steroids; Z79.01 Long term (current) use of anticoagulants; Z79.899 Other long term (current) drug therapy; L89.150 Pressure ulcer of sacral region, unstageable; I25.2 Old myocardial infarction; N18.9 Chronic kidney disease, unspecified; Z79.4 Long term (current) use of insulin; F03.90 Unspecified dementia, unspecified severity, without behavioral disturbance, psychotic disturbance, mood disturbance, and anxiety; D63.8 Anemia in other chronic diseases classified elsewhere; Z74.09 Other reduced mobility; S91.302A Unspecified open wound, left foot, initial encounter; S91.301A Unspecified open wound, right foot, initial encounter; X58.XXXA Exposure to other specified factors, initial encounter; Y92.9 Unspecified place or not applicable; R13.10 Dysphagia, unspecified; Z93.1 Gastrostomy status; E11.22 Type 2 diabetes mellitus with diabetic chronic kidney disease; E83.39 Other disorders of phosphorus metabolism; Z66 Do not resuscitate; Y95 Nosocomial condition; M62.50 Muscle wasting and atrophy, not elsewhere classified, unspecified site; Z22.322 Carrier or suspected carrier of Methicillin resistant Staphylococcus aureus; L98.9 Disorder of the skin and subcutaneous tissue, unspecified; L89.626 Pressure-induced deep tissue damage of left heel
CPT/HCPCS: 31623; 31720; 36410; 36415; 36600; 71045-TC; 80048-TC; 80053-TC; 80076-TC; 80202-TC; 81001; 82570-TC; 82728-TC; 82803-TC; 82962-TC; 83540-TC; 83605-TC; 83735-TC; 83880; 84100-TC; 84155-TC; 84300-TC; 84484-TC; 85025-TC; 85610-TC; 85730-TC; 86704; 86705; 86706; 86803; 86850-TC; 87040-TC; 87070-TC; 87081-TC; 87086-TC; 87186-TC; 87340; 90935-TC; 94002-TC; 94003-TC; 94760-TC; 94762-TC; 94799-TC; A4216; A4217; A4349; A6253; A6403; A7526; C1750; C1769; C9113; G0378; J0690; J0692; J0885; J1644; J1815; J1940; J2185; J2250; J2405; J2543; J3010; J3370; J3490; J7030; J7050; J7060; P9016; P9047; Q9967